=== PATIENT | female | born 1955 | race African-American/Black ===

== ENCOUNTER 2017-02-12 10:53 | Emergency (ER) | payer BC, OTHER ==
[~2017-02-12] VITALS: Ht 157.5 cm; Wt 72.6 kg
[~2017-02-12 10:53] MED LIST: ACETAMINOPHEN650 M2 GT; ALBUTEROL2.5 MG/3 M INH; AMOX TR-K CLV1 EAC2 ORAL; APRESOLINE50 MG ORAL; ASPIR 8181 MG ORAL; ATORVASTATIN CA20 MG ORAL; BACTRIM DS TAB1 EAC1 ORAL; CIPRO250 MG ORAL; CIPRO500 MG PO; CLINDAMYCIN HC300 MG ORAL; CRANBERRY450 M4 GT; DOXAZOSIN MESYLA8 MG ORAL; EPOGEN10000 UNIT SUBQ; FERROUS SULFAT325 MG ORAL; FLOMAX0.4 MG ORAL; GLUCAGON W/DILUE1 MG IM; GLUTOSE 1537.5 GM GT; HEPARIN SO5000 UNIT2 SUBQ; HUMALOG100 UNIT/4 SUBQ; KEFLEX500 M1 GT; LABETALOL HCL200 MG GT; LANTUS SOL100 UNIT/1 SUBQ; LASIX20 M1 ORAL; LEVAQUIN250 M1 GT; LEVEMIR100 UNIT/1 SUBQ; LISINOPRIL20 MG ORAL; MACROBID100 MG ORAL; MULTI VITAMIN1 EACH GT; NEPHRO-VITE RX1 EAC1 PO; NORCO 5-325 TA1 EACH GT; NORCO 5-325 TA1 EACH ORAL; NORMODYNE200 MG GT; NORVASC10 MG GT; NOVOLOG100 UNIT/3 SUBQ; PROCRIT20000 UNI2 SUBQ; RENVELA0.8 GM ORAL; TYLENOL650 MG/20. ORAL; UNOBMED; URECHOLINE25 MG ORAL; VANCOMYCIN250 MG/5 M GT; VITAMIN C500 M1 GT; ZINC SULFATE220 M1 GT; ZOFRAN4 MG GT; ZOSYN 3.373.375 GM/1 IVPB; ZYVOX600 MG ORAL; [UNRECOGNIZED DRUG - OTHER]; [UNRECOGNIZED DRUG - REMARK] MISC; [UNRECOGNIZED DRUG - SUPPLY]; mvi GT
[2017-02-12 11:10] VITALS: BP 11/72
--- NOTE | 2017-02-12 12:21 | Emergency Room Report ---
History of Present Illness General Chief Complaint: Dizziness Source: Patient Present Illness HPI [id number] BIBEMS for headache for 4 days. "All over head." Intermittent. No associated fever/chills, neck pain/stiffness, extremity weakness. Last had HD - 2 days ago. Due today Denies chest pain, SOB, abd pain, extremity swelling. Allergies: Coded Allergies: No Known Allergies (Unverified , 05/24/13) Patient History Past Medical History: renal disease Past Surgical History: other - HD access site Pertinent Family History: none Social History: Denies: smoking, alcohol use, drug use Now: No Immunizations: UTD Reviewed Nursing Documentation: PMH: Agreed, PSxH: Agreed Nursing Documentation-PMH Hx Cardiac Problems: Yes Hx Hypertension: Yes Hx Diabetes: Yes Hx Cancer: No Hx Gastrointestinal Problems: No Hx Dialysis: Yes - av graft left arm-(T--)LAST DIALYSIS - Hx Neurological Problems: Yes Hx Cerebrovascular Accident: Yes - 2011- Hx Weakness: Yes Review of Systems All Other Systems: negative except mentioned in HPI Physical Exam Vital Signs Date Time Temp Pulse Resp B/P (MAP) Pulse Ox O2 Delivery O2 Flow Rate FiO2 02/12/17 10:59 96.6 73 14 120/69 98 Room Air Sp02 EP Interpretation: reviewed General Appearance: normal inspection, well appearing, no apparent distress, alert, GCS 15, non-toxic Head: normocephalic, atraumatic Eyes: bilateral eye PERRL, bilateral eye EOMI ENT: normal ENT inspection, hearing grossly normal, normal voice Neck: normal inspection, full range of motion, supple, no bony tend Respiratory: normal inspection, lungs clear, normal breath sounds, no respiratory distress, no retraction, no wheezing Cardiovascular #1: regular rate, rhythm, no edema Gastrointestinal: normal inspection, normal bowel sounds, non tender, soft, no guarding, no hernia Genitourinary: no CVA tenderness Musculoskeletal: normal inspection, back normal, normal range of motion, Nori' s Sign negative Neurologic: normal inspection, alert, oriented x3, responsive, frame opener III-XII nml as tested, motor strength/tone normal, speech normal Psychiatric: normal inspection, judgement/insight normal, mood/affect normal Skin: normal inspection, normal color, no rash Medical Decision Making Diagnostic Impression: Primary Impression: Headache Qualified Codes: G44.209 - Tension-type headache, unspecified, not intractable Additional Impressions: Hyperkalemia CKD (chronic kidney disease) Qualified Codes: N18.6 - End stage renal disease; Z99.2 - Dependence on renal dialysis ER Course Headache, resolved at time of MD evaluation VSS. Afebrile. No focal neuro deficits Doubt SAH, meningitis given duration of symptoms, self-resolution HyperK - Missed HD today - ?peaked TW on ECG - Tx with IV calcium, albuterol in ED - Spoke with PMD DR Alarcon and patient's HD center, [facility], who agree on sending patient for HD there given now asymptomatic. - Patient's O2 sat 100%, no acute respiratory distress, chest pain. D/w patient importance of going to dialysis today vs staying in hospital for dialysis, further evaluation, and potentially be at risk for nosocomial acquired infection, etc. Agrees for transfer to HD center Will return to ED for worsening symptoms EKG Diagnostic Results Rate: normal Rhythm: NSR ST Segments: other - Peaked Twaves in V2/3 ASA given to the pt in ED: No Rhythm Strip Diag. Results EP Interpretation: yes Rate: 67 Rhythm: NSR, no PVC's, no ectopy Chest X-Ray Diagnostic Results Chest X-Ray Diagnostic Results : Chest X-Ray Ordered: Yes # of Views/Limited/Complete: 1 View Indication: Other - Dizziness EP Interpretation: Yes Interpretation: no consolidation, no effusion, no pneumothorax, other - Cardiomegaly Interpreting ER Provider: Dr Vannesa Chávez MD Last Vital Signs Date Time Temp Pulse Resp B/P (MAP) Pulse Ox O2 Delivery O2 Flow Rate FiO2 02/12/17 10:59 96.6 73 14 120/69 98 Room Air Status: improved Disposition: HOME, SELF-CARE VANNESA CHÁVEZ M.D. Feb 12, 2017 12:21
[2017-02-12 12:59] LABS: EOSINOPHILS % (AUTO) 2.3 % (0.0-3.0); LYMPHOCYTES % (AUTO) 23.4 % (20.0-45.0); MEAN CORPUSCULAR HGB CONC 33.2 G/DL (32.0-36.0); MEAN CORPUSCULAR VOLUME 94 FL (80-99); MEAN PLATELET VOLUME 7.9 FL (6.5-10.1); MONOCYTES % (AUTO) 5.9 % (1.0-10.0); NEUTROPHILS % (AUTO) 67.5 % (45.0-75.0); PLATELET COUNT 150 K/UL (150-450); RED BLOOD COUNT 4.21 M/UL (4.20-5.40)
[2017-02-12 13:10] LABS: TROPONIN I < 0.30 ng/mL (<=0.30)
[2017-02-12 13:13] LABS: ALBUMIN/GLOBULIN RATIO 1.5 (1.0-2.7); CREATININE 8.3 mg/dL (0.5-0.9); GLOMERULAR FILTRATION RATE 5.9 mL/min (>60); TOTAL PROTEIN 7.3 g/dL (6.6-8.7)
[2017-02-12 13:36] LABS: POTASSIUM 7.8 mEQ/L (3.4-4.9)
[2017-02-12] MEDS ORDERED: Calcium Gluconate 1gm/10ml vial IVP ONE (14:00)
[2017-02-12] MEDS ORDERED: Albuterol ud Inhalation HHN ONE (14:00)
[2017-02-12 15:02] VITALS: BP 117/74
--- NOTE | 2017-02-13 11:08 | Diagnostic Imaging Report ---
Indication: Dyspnea Comparison: 09/24/15 A single view chest radiograph was obtained. Findings: Cardiomediastinal appearance is within normal limits for age. Pulmonary vascularity is appropriate. The diaphragmatic contour is smooth and costophrenic angles are sharp. No pleural effusions are identified. The bones are unremarkable. Impression: No acute findings
--- NOTE | 2017-02-14 19:45 | Cardiology Report ---
APPROVED REPORT EKG Measurement Heart [id number] Normal sinus rhythm Low voltage QRS Borderline ECG
== END 2017-02-12 14:50 | disposition home or self-care (01) ==
LOC: EMR 11:40
DX: R51 Headache (principal); E87.5 Hyperkalemia; I12.0 Hypertensive chronic kidney disease with stage 5 chronic kidney disease or end stage renal disease; N18.6 End stage renal disease; Z99.2 Dependence on renal dialysis; E11.9 Type 2 diabetes mellitus without complications; Z86.73 Personal history of transient ischemic attack (TIA), and cerebral infarction without residual deficits
CPT/HCPCS: 36415; 71010; 80053; 82550; 82553; 83880; 84484; 85025; 93005; 94640; 96374; 96375; 99284; J0610; J1815

== ENCOUNTER 2020-04-13 19:46 | Inpatient (IN) | payer MEDICARE, MEDICAID ==
[~2020-04-13] VITALS: Ht 165.1 cm; Wt 76.0 kg
[2020-04-13 19:50] VITALS: BP 126/65
--- NOTE | 2020-04-13 19:57 | Emergency Room Report ---
History of Present Illness General Source: Patient, EMS Present Illness HPI The patient presents with complaint of left flank and lower back pain. She states she has had pain like this in the past when she is passing a kidney stone. She is a dialysis patient that missed her dialysis on Tuesday because her stomach was not feeling well. She states that she was having some loose stools at that time. She does still produce urine and denies dysuria or hematuria. She rarely produces urine. She has had no fevers or chills. Patient is also diabetic. She rates the pain 8/10 and burning and aching and constant. Not positional. Not radiating. Patient denies exposure to Covid positive contacts. No sore throat, chest pain, palpitations, nausea, vomiting, abdominal pain, shortness of breath, joint pain, rashes, depression, anxiety, visual changes, dizziness, headache. Allergies: Coded Allergies: No Known Allergies (Unverified , 05/24/13) Patient History Past Medical History: see triage record Past Surgical History: hysterectomy, other - Dialysis fistula, carpal tunnel Social History: Denies: smoking, alcohol use, drug use Social History Narrative Lives with her son and his family Reviewed Nursing Documentation: PMH: Agreed; PSxH: Agreed Nursing Documentation-PMH Hx Cardiac Problems: Yes Hx Hypertension: Yes Hx Diabetes: Yes Hx Cancer: No Hx Gastrointestinal Problems: No Hx Dialysis: Yes - av graft left arm-(T-TH-S)LAST DIALYSIS - Hx Neurological Problems: Yes Hx Cerebrovascular Accident: Yes - 2011- Hx Weakness: Yes Review of Systems All Other Systems: negative except mentioned in HPI Physical Exam Vital Signs Date Time Temp Pulse Resp B/P (MAP) Pulse Ox O2 Delivery O2 Flow Rate FiO2 04/13/20 19:50 98.6 79 12 126/65 100 Room Air Sp02 EP Interpretation: reviewed, normal General Appearance: alert, GCS 15, non-toxic, mild distress, Chronically Ill Head: normocephalic Eyes: bilateral eye normal inspection, bilateral eye PERRL, bilateral eye EOMI ENT: moist mucus membranes Neck: supple Respiratory: lungs clear, normal breath sounds Cardiovascular #1: regular rate, rhythm Cardiovascular #2: 2+ radial (R) Gastrointestinal: normal inspection, normal bowel sounds, non tender, no mass, non-distended Genitourinary: no CVA tenderness Musculoskeletal: normal range of motion, tender - Reported Neurologic: alert, oriented x3, grossly normal Psychiatric: depressed affect Skin: no rash, warm/dry Medical Decision Making Diagnostic Impression: Primary Impression: Flank pain Additional Impressions: Missed dialysis ESRD (end stage renal disease) on dialysis Anemia Qualified Codes: N18.6 - End stage renal disease; D63.1 - Anemia in chronic kidney disease; Z99.2 - Dependence on renal dialysis COVID-19 ruled out by laboratory testing ER Course Patient presents with low back pain with history of kidney stones and dialysis having this dialysis. Differential includes pyelonephritis, renal stone, gastroenteritis, aortic aneurysm amongst others. She missed dialysis and therefore concern about electrolyte abnormality. Evaluation with EKG, chest x- ray, CT of the abdomen and pelvis and labs. Patient treated with Reglan, Benadryl and morphine. EKG no injury. Chest x-ray some pulmonary hypertension. CT of the abdomen with nonobstructing stones (see results below. In addition pain is not on right upper upper quadrant therefore biliary duct findings not related to this presentation.). Labs with chronic renal failure and a normal white count. Urine not produced. Patient minimally improved with pain medication. Analgesia repeated. Due to the unknown etiology of flank pain patient is admitted for further evaluation and observation. In addition consideration for dialysis as she missed this on Tuesday. Complicated patient with multiple comorbidities. Laboratory Tests Test 04/13/20 19:58 04/13/20 20:14 POC Whole Blood Glucose 217 MG/DL (74-106) H White Blood Count 6.8 K/UL (4.8-10.8) Red Blood Count 2.85 M/UL (4.20-5.40) L Hemoglobin 8.3 G/DL (12.0-16.0) L Hematocrit 26.0 % (37.0-47.0) L Mean Corpuscular Volume 91 FL (80-99) Mean Corpuscular Hemoglobin 29.2 PG (27.0-31.0) Mean Corpuscular Hemoglobin Concent 32.1 G/DL (32.0-36.0) Red Cell Distribution Width 14.3 % (11.6-14.8) Platelet Count 193 K/UL (150-450) Mean Platelet Volume 6.5 FL (6.5-10.1) Neutrophils (%) (Auto) 74.2 % (45.0-75.0) Lymphocytes (%) (Auto) 13.8 % (20.0-45.0) L Monocytes (%) (Auto) 7.5 % (1.0-10.0) Eosinophils (%) (Auto) 3.3 % (0.0-3.0) H Basophils (%) (Auto) 1.1 % (0.0-2.0) Prothrombin Time 10.7 SEC (9.30-11.50) Prothrombin Time INR 1.0 (0.9-1.1) Activated Partial Thromboplast Time 24 SEC (23-33) Sodium Level 142 MMOL/L (136-145) Potassium Level 3.9 MMOL/L (3.5-5.1) Chloride Level 98 MMOL/L (98-107) Carbon Dioxide Level 33 MMOL/L (21-32) H Anion Gap 11 mmol/L (5-15) Blood Urea Nitrogen 70 mg/dL (7-18) H Creatinine 11.8 MG/DL (0.55-1.30) H Estimated Glomerular Filtration Rate 3.9 mL/min (>60) Glucose Level 237 MG/DL (74-106) H Calcium Level 7.9 MG/DL (8.5-10.1) L Total Bilirubin 0.3 MG/DL (0.2-1.0) Aspartate Amino Transferase (AST) 12 U/L (15-37) L Alanine Aminotransferase (ALT) 8 U/L (12-78) L Alkaline Phosphatase 125 U/L (46-116) H Troponin I 0.005 ng/mL (0.000-0.056) Total Protein 7.0 G/DL (6.4-8.2) Albumin 3.5 G/DL (3.4-5.0) Globulin 3.5 g/dL Albumin/Globulin Ratio 1.0 (1.0-2.7) Lipase 271 U/L (73-393) Microbiology Date/Time Source Procedure Growth Status 04/13/20 22:30 Nasopharynx SARS-CoV-2 RdRp Gene Assay - Final Complete EKG Diagnostic Results Troponin ordered: Yes Rate: normal Rhythm: NSR ST Segments: no acute changes - Low voltage Rhythm Strip Diag. Results EP Interpretation: yes Rhythm: NSR, no PVC's, no ectopy Chest X-Ray Diagnostic Results Chest X-Ray Diagnostic Results : Chest X-Ray Ordered: Yes # of Views/Limited/Complete: 1 View Indication: Other EP Interpretation: Yes Interpretation: no effusion, no pneumothorax, other - increased coronel Impression: Other Electronically Signed by: Electronically signed by Graeme Johnson MD CT/MRI/US Diagnostic Results CT/MRI/US Diagnostic Results : Imaging Test Ordered: Abdomen and pelvis Impression 1. Bladder wall thickening out of proportion to level of distention. Findings are suspicious for cystitis. Recommend correlation with urinalysis. 2. Nonspecific dilatation of the distal main pancreatic duct which also contains a small amount of air. Query recent ERCP. In the absence of such history, an underlying obstructing lesion seen at the level of the ampulla should be excluded. Last Vital Signs Date Time Temp Pulse Resp B/P (MAP) Pulse Ox O2 Delivery O2 Flow Rate FiO2 04/14/20 00:00 97.5 74 18 113/58 (76) 98 04/13/20 23:10 Room Air Status: improved Disposition: ADMITTED INPATIENT Condition: Serious Graeme Johnson MD Apr 13, 2020 19:57
[2020-04-13] MEDS ORDERED: DiphenhydrAMINE 50mg/ml Inj IVP ONE (20:00)
[2020-04-13] MEDS ORDERED: Morphine Sulfate 2mg/ml Inj(IV/IM USE ONLY) IVP ONE (20:00)
[2020-04-13] MEDS ORDERED: Metoclopramide 10mg/2ml Inj IVP ONE (20:00)
[2020-04-13 20:53] LABS: BASOPHILS % (AUTO) 1.1 % (0.0-2.0); EOSINOPHILS % (AUTO) 3.3 % (0.0-3.0); HEMOGLOBIN 8.3 G/DL (12.0-16.0); LYMPHOCYTES % (AUTO) 13.8 % (20.0-45.0); MEAN CORPUSCULAR VOLUME 91 FL (80-99); MONOCYTES % (AUTO) 7.5 % (1.0-10.0); NEUTROPHILS % (AUTO) 74.2 % (45.0-75.0); PLATELET COUNT 193 K/UL (150-450); RED BLOOD COUNT 2.85 M/UL (4.20-5.40); RED CELL DISTRIBUTION WIDTH 14.3 % (11.6-14.8); WHITE BLOOD COUNT 6.8 K/UL (4.8-10.8)
--- NOTE | 2020-04-13 21:07 | Diagnostic Imaging Report ---
EXAM: CT Abdomen and Pelvis Without Intravenous Contrast CLINICAL HISTORY: ABD PAIN TECHNIQUE: Axial computed tomography images of the abdomen and pelvis without intravenous contrast. CTDI is 6.1 mGy and DLP is 308.7 mGy-cm. One or more of the following dose reduction techniques were used: automated exposure control, adjustment of the mA and/or kV according to patient size, use of iterative reconstruction technique. COMPARISON: None FINDINGS: Lung bases: Unremarkable. No mass. No consolidation. ABDOMEN: Liver: Unremarkable. Gallbladder and bile ducts: There is a tiny gallstone. There is no gallbladder wall thickening or pericholecystic fat stranding. No ductal dilation. Pancreas: There is dilatation of the distal main pancreatic duct. A small amount of air is also seen within the duct. Spleen: Unremarkable. No splenomegaly. Adrenals: Unremarkable. No mass. Kidneys and ureters: The kidneys are atrophic. There are small bilateral nonobstructive renal stones. There is no evidence of hydronephrosis. No ureteral stones are seen. Stomach and bowel: There is rectal wall thickening which may reflect incomplete distention. There is no evidence of small or large bowel obstruction. The antimesenteric portion of the transverse colon protrudes through a ventral hernia defect. There is a normal appendix. PELVIS: Appendix: See above. Bladder: The bladder is thick walled. No stones. Reproductive: Unremarkable as visualized. ABDOMEN and PELVIS: Intraperitoneal space: There is no actual gas or fluid. Bones/joints: There is no acute fracture or dislocation. Multilevel degenerative changes are seen within the spine. Soft tissues: See above. Vasculature: Moderate atherosclerotic calcifications are present within the aortoiliac vessels. No abdominal aortic aneurysm. Lymph nodes: Unremarkable. No enlarged lymph nodes. IMPRESSION: 1. Bladder wall thickening out of proportion to level of distention. Findings are suspicious for cystitis. Recommend correlation with urinalysis. 2. Nonspecific dilatation of the distal main pancreatic duct which also contains a small amount of air. Query recent ERCP. In the absence of such history, an underlying obstructing lesion seen at the level of the ampulla should be excluded.
[2020-04-13 21:20] LABS: CALCIUM 7.9 MG/DL (8.5-10.1); CREATININE 11.8 MG/DL (0.55-1.30); POTASSIUM 3.9 MMOL/L (3.5-5.1)
--- NOTE | 2020-04-13 21:22 | Diagnostic Imaging Report ---
EXAM: XR Chest, 1 View CLINICAL HISTORY: ABD PAIN TECHNIQUE: Frontal view of the chest. COMPARISON: None FINDINGS: Lungs: There is mild pulmonary vascular congestion. Atelectatic changes are seen at the left lung base. Pleural space: Unremarkable. No pneumothorax. Heart: The heart size at the upper limits of normal. Mediastinum: Unremarkable. Bones/joints: Unremarkable. IMPRESSION: Cardiomegaly and mild pulmonary vascular congestion.
[2020-04-13 21:25] LABS: ALBUMIN 3.5 G/DL (3.4-5.0); BILIRUBIN,TOTAL 0.3 MG/DL (0.2-1.0)
[2020-04-13] MEDS ORDERED: HYDROmorphone 1mg/ml Carpuject IVP ONE (22:30)
[2020-04-13] MEDS ORDERED: DiphenhydrAMINE 50mg/ml Inj IVP PRN (23:45)
[2020-04-13] MEDS ORDERED: Metoclopramide 10mg/2ml Inj IVP PRN (23:45)
[2020-04-13] MEDS ORDERED: HYDROcodone/Acetamin 5/325 tab ORAL PRN (23:45)
[2020-04-13] MEDS ORDERED: Morphine Sulfate 2mg/ml Inj(IV/IM USE ONLY) IVP SCH (23:45)
[2020-04-13] MEDS ORDERED: HYDROmorphone 1mg/ml Carpuject IVP PRN (23:45)
[2020-04-14] VITALS: BP 113/58
[2020-04-14] MEDS ORDERED: Heparin 5000 units/ml inj SUBQ SCH (00:30)
[2020-04-14 04:00] VITALS: BP 99/45
[2020-04-14] MEDS: NovoLOG Insulin Flexpen SUBQ SCH ×4 (06:13→21:09)
[2020-04-14 08:00] VITALS: BP 104/46
--- NOTE | 2020-04-14 08:45 | Consultation ---
History of Present Illness General Date patient seen: Apr 14, 2020 Chief Complaint: Present Illness Allergies: Coded Allergies: No Known Allergies (Unverified , 05/24/13) Medication History Scheduled Aspirin* (Aspir 81*), 81 MG ORAL DAILY, (Reported) Atorvastatin Calcium* (Atorvastatin Calcium*), 20 MG ORAL BEDTIME, (Reported) Insulin Detemir (Levemir), 0 SUBQ BEDTIME, (Reported) Labetalol HCl (Labetalol HCl), 400 MG GT Q12HR Lisinopril (Lisinopril*), 20 MG ORAL BID Sevelamer Carbonate* (Renvela*), 800 MG ORAL THREE TIMES A DAY [mvi], 5 ML GT DAILY, (Reported) Scheduled PRN Hydrocodone Bit/Acetaminophen 5-325* ([place] 5-325*), 1 TAB ORAL Q6H PRN for For Pain Miscellaneous Medications Insulin Aspart* (Novolog*), 0 SUBQ, (Reported) Patient History Healthcare decision maker Resuscitation status Advanced Directive on File Physical Exam Last 24 Hour Vital Signs Date Time Temp Pulse Resp B/P (MAP) Pulse Ox O2 Delivery O2 Flow Rate FiO2 04/14/20 04:00 97.2 72 18 99/45 (63) 95 04/14/20 00:18 Room Air 04/14/20 00:00 97.5 74 18 113/58 (76) 98 04/13/20 23:10 98.7 75 12 111/56 100 Room Air 04/13/20 23:00 79 12 Room Air 04/13/20 22:54 98.7 04/13/20 21:08 98.7 04/13/20 19:50 98.6 79 12 126/65 100 Room Air Intake and Output 04/13/20 04/14/20 19:00 07:00 Intake Total 0 ml Output Total 0 ml Balance 0 ml Intake Oral 0 ml Output Urine Total 0 ml Laboratory Tests Test 04/13/20 19:58 04/13/20 20:14 POC Whole Blood Glucose 217 MG/DL (74-106) H White Blood Count 6.8 K/UL (4.8-10.8) Red Blood Count 2.85 M/UL (4.20-5.40) L Hemoglobin 8.3 G/DL (12.0-16.0) L Hematocrit 26.0 % (37.0-47.0) L Mean Corpuscular Volume 91 FL (80-99) Mean Corpuscular Hemoglobin 29.2 PG (27.0-31.0) Mean Corpuscular Hemoglobin Concent 32.1 G/DL (32.0-36.0) Red Cell Distribution Width 14.3 % (11.6-14.8) Platelet Count 193 K/UL (150-450) Mean Platelet Volume 6.5 FL (6.5-10.1) Neutrophils (%) (Auto) 74.2 % (45.0-75.0) Lymphocytes (%) (Auto) 13.8 % (20.0-45.0) L Monocytes (%) (Auto) 7.5 % (1.0-10.0) Eosinophils (%) (Auto) 3.3 % (0.0-3.0) H Basophils (%) (Auto) 1.1 % (0.0-2.0) Prothrombin Time 10.7 SEC (9.30-11.50) Prothromb Time International Ratio 1.0 (0.9-1.1) Activated Partial Thromboplast Time 24 SEC (23-33) Sodium Level 142 MMOL/L (136-145) Potassium Level 3.9 MMOL/L (3.5-5.1) Chloride Level 98 MMOL/L (98-107) Carbon Dioxide Level 33 MMOL/L (21-32) H Anion Gap 11 mmol/L (5-15) Blood Urea Nitrogen 70 mg/dL (7-18) H Creatinine 11.8 MG/DL (0.55-1.30) H Estimat Glomerular Filtration Rate 3.9 mL/min (>60) Glucose Level 237 MG/DL (74-106) H Calcium Level 7.9 MG/DL (8.5-10.1) L Total Bilirubin 0.3 MG/DL (0.2-1.0) Aspartate Amino Transf (AST/SGOT) 12 U/L (15-37) L Alanine Aminotransferase (ALT/SGPT) 8 U/L (12-78) L Alkaline Phosphatase 125 U/L (46-116) H Troponin I 0.005 ng/mL (0.000-0.056) Total Protein 7.0 G/DL (6.4-8.2) Albumin 3.5 G/DL (3.4-5.0) Globulin 3.5 g/dL Albumin/Globulin Ratio 1.0 (1.0-2.7) Lipase 271 U/L (73-393) Microbiology Date/Time Source Procedure Growth Status 04/13/20 22:30 Nasopharynx SARS-CoV-2 RdRp Gene Assay - Final Complete Height (Feet): 5 Height (Inches): 2.00 Weight (Pounds): 156 Medications Current Medications Medications (Trade) Dose Ordered Sig/Gini Route PRN Reason Start Time Stop Time Status Last Admin Dose Admin Acetaminophen/ Hydrocodone Bitart ([place] 5/325) 1 tab Q6H PRN ORAL For Pain 04/13/20 23:45 04/20/20 23:44 Aspirin (Ecotrin) 81 mg DAILY ORAL 04/14/20 09:00 05/29/20 08:59 Atorvastatin Calcium (Lipitor) 20 mg BEDTIME ORAL 04/14/20 21:00 07/13/20 20:59 Dextrose (Dextrose 50%) 25 ml Q30M PRN IV Hypoglycemia 04/13/20 23:45 07/12/20 23:44 Dextrose (Dextrose 50%) 50 ml Q30M PRN IV Hypoglycemia 04/13/20 23:45 07/12/20 23:44 Diphenhydramine HCl (Benadryl) 25 mg Q6H PRN IVP Itching 04/13/20 23:45 05/13/20 23:44 Heparin Sodium (Porcine) (Heparin 5000 units/ml) 5,000 units EVERY 12 HOURS SUBQ 04/14/20 09:00 05/29/20 00:29 Hydromorphone HCl (Dilaudid) 1 mg Q8H PRN IVP Severe Pain (Pain Scale 7-10) 04/13/20 23:45 04/20/20 23:44 Insulin Aspart (NovoLOG) BEFORE MEALS AND HS SUBQ 04/14/20 06:30 07/13/20 06:29 Levetiracetam (Keppra) 500 mg Q12HR ORAL 04/14/20 09:00 05/14/20 00:29 Lisinopril (PriniviL) 20 mg BID ORAL 04/14/20 09:00 05/14/20 08:59 Metoclopramide HCl (Reglan) 10 mg Q6H PRN IVP Nausea & Vomiting 04/13/20 23:45 05/13/20 23:44 Ondansetron HCl (Zofran) 4 mg Q6H PRN IVP Nausea & Vomiting refractory 04/13/20 23:45 05/13/20 23:44 Pantoprazole (Protonix) 40 mg EVERY 12 HOURS ORAL 04/14/20 09:00 05/14/20 00:29 Sevelamer Carbonate (Renvela) 800 mg THREE TIMES A DAY ORAL 04/14/20 09:00 07/13/20 08:59 Assessment/Plan Assessment/Plan: (1) Flank pain (2) ESRD on hemodialysis seen dictated Evans Gordon Apr 14, 2020 08:45
[2020-04-14] MEDS: Lisinopril 20mg tab ORAL SCH ×2 (09:00→09:04)
[2020-04-14] MEDS: Aspirin EC 81mg tab ORAL SCH (09:03)
[2020-04-14] MEDS: Renvela 800mg Pkt ORAL SCH ×3 (09:03→17:36)
[2020-04-14] MEDS: Heparin 5000 units/ml inj SUBQ SCH ×2 (09:06→20:43)
--- NOTE | 2020-04-14 09:31 | History & Physical ---
History and Physical History & Physicial riGeneral Source: Patient, EMS Present Illness HPI The patient presents with complaint of left flank and lower back pain. She states she has had pain like this in the past when she is passing a kidney stone. She is a dialysis patient that missed her dialysis on Tuesday because her stomach was not feeling well. She states that she was having some loose stools at that time. She does still produce urine and denies dysuria or hematuria. She has had no fevers or chills. Patient is also diabetic. Allergies: Coded Allergies: No Known Allergies (Unverified , 05/24/13) Patient History Past Medical History: see triage record Social History: Denies: smoking, alcohol use, drug use Social History Narrative Lives with her son and his family Reviewed Nursing Documentation: PMH: Agreed; PSxH: Agreed Nursing Documentation-PMH Hx Cardiac Problems: Yes Hx Hypertension: Yes Hx Diabetes: Yes Hx Cancer: No Hx Gastrointestinal Problems: No Hx Dialysis: Yes - av graft left arm-(T-TH-S)LAST DIALYSIS - Hx Neurological Problems: Yes Hx Cerebrovascular Accident: Yes - 2011- Hx Weakness: Yes Exam: AT/NC, chest: clear, Heart: Regular, ABD: soft, MS: no asymmetric deficeit, Neuro: awake alert, Psych: normal Med: reviewed and reconciled Labs: dated Apr 13 reviewed Medical Decision Making Diagnostic Impression: Primary Impression: Flank pain Additional Impressions: Missed dialysis ESRD (end stage renal disease) on dialysis Anemia Qualified Codes: N18.6 - End stage renal disease; D63.1 - Anemia in chronic kidney disease; Z99.2 - Dependence on renal dialysis COVID-19 ruled out by laboratory testing DM Hyperlipidemia Abn imaging finding in Abd CT Nephrology pain mgt and ID are consulted comment: time of this dictation does not reflect actual time of the encounter Cristian White MD Apr 14, 2020 09:31
--- NOTE | 2020-04-14 09:32 | General Progress Note ---
Subjective Allergies: Coded Allergies: No Known Allergies (Unverified , 05/24/13) Objective Last 24 Hour Vital Signs Date Time Temp Pulse Resp B/P (MAP) Pulse Ox O2 Delivery O2 Flow Rate FiO2 04/14/20 09:00 104/46 04/14/20 08:00 97.9 64 18 104/46 (65) 97 04/14/20 04:00 97.2 72 18 99/45 (63) 95 04/14/20 00:18 Room Air 04/14/20 00:00 97.5 74 18 113/58 (76) 98 04/13/20 23:10 98.7 75 12 111/56 100 Room Air 04/13/20 23:00 79 12 Room Air 04/13/20 22:54 98.7 04/13/20 21:08 98.7 04/13/20 19:50 98.6 79 12 126/65 100 Room Air Intake and Output 04/13/20 04/14/20 19:00 07:00 Intake Total 0 ml Output Total 0 ml Balance 0 ml Intake Oral 0 ml Output Urine Total 0 ml Laboratory Tests 04/13/20 19:58: POC Whole Blood Glucose 217H 04/13/20 20:14: White Blood Count 6.8, Red Blood Count 2.85L, Hemoglobin 8.3L, Hematocrit 26.0L, Mean Corpuscular Volume 91, Mean Corpuscular Hemoglobin 29.2, Mean Corpuscular Hemoglobin Concent 32.1, Red Cell Distribution Width 14.3, Platelet Count 193, Mean Platelet Volume 6.5, Neutrophils (%) (Auto) 74.2, Lymphocytes (%) (Auto) 13.8L, Monocytes (%) (Auto) 7.5, Eosinophils (%) (Auto) 3.3H, Basophils (%) (Auto) 1.1, Prothrombin Time 10.7, Prothromb Time International Ratio 1.0, Activated Partial Thromboplast Time 24, Sodium Level 142, Potassium Level 3.9, Chloride Level 98, Carbon Dioxide Level 33H, Anion Gap 11, Blood Urea Nitrogen 70H, Creatinine 11.8H, Estimat Glomerular Filtration Rate 3.9, Glucose Level 237H, Calcium Level 7.9L, Total Bilirubin 0.3, Aspartate Amino Transf (AST/SGOT) 12L, Alanine Aminotransferase (ALT/SGPT) 8L, Alkaline Phosphatase 125H, Troponin I 0.005, Total Protein 7.0, Albumin 3.5, Globulin 3.5, Albumin/Globulin Ratio 1.0, Lipase 271 Height (Feet): 5 Height (Inches): 2.00 Weight (Pounds): 156 Assessment/Plan Assessment/Plan: S: I am ok O: seems comfortable Exam: AT/NC, chest: clear, Heart: Regular, ABD: soft, MS: no asymmetric deficeit, Neuro: awake alert, Psych: normal Med: reviewed and reconciled Labs: dated Apr 14 reviewed Medical Decision Making Diagnostic Impression: Primary Impression: Flank pain Additional Impressions: Missed dialysis ESRD (end stage renal disease) on dialysis Anemia Qualified Codes: N18.6 - End stage renal disease; D63.1 - Anemia in chronic kidney disease; Z99.2 - Dependence on renal dialysis COVID-19 ruled out by laboratory testing DM Hyperlipidemia Abn imaging finding in Abd CT Plan: GI consulted NPO for now hold LA-insulin Cristian White MD Apr 14, 2020 09:32
--- NOTE | 2020-04-14 10:45 | Consultation ---
DATE OF CONSULTATION: 04/14/2020 CHIEF COMPLAINT: Abdominal pain. HISTORY OF PRESENT ILLNESS: This is a very pleasant 64-year-old patient with past medical history of end-stage renal disease on hemodialysis came to the hospital complaining of epigastric pain and left flank pain. According to her, she had history of kidney stones and she felt like the other one started to have kidney stones. She also complained of some abdominal pain and loose stools. According to her, no blood in the stool. According to her, she had a colonoscopy done about a year ago and she was told everything was normal. No prior history of endoscopy. PAST MEDICAL HISTORY: 1. End-stage renal disease on hemodialysis. 2. Anemia. 3. Kidney stones. 4. Diabetes. 5. Hypertension. 6. CVA. ALLERGIES: No known drug allergies. MEDICATIONS: Please see medication reconciliation list. PAST SURGICAL HISTORY: Hysterectomy and AV shunt placement for dialysis. FAMILY HISTORY: Noncontributory. SOCIAL HISTORY: The patient denies any tobacco, alcohol, or drug abuse. REVIEW OF SYSTEMS: A 10-point review of systems was performed and pertinent positives in HPI. PHYSICAL EXAMINATION: VITAL SIGNS: Temperature 97.9, pulse 64, respirations 18, blood pressure is 104/46. HEENT: Normocephalic and atraumatic. Sclerae anicteric. NECK: Supple. No obvious lymphadenopathy. CARDIOVASCULAR: Regular rate and rhythm. Plus S1 and S2. LUNGS: Decreased breath sounds bilaterally based on the supine exam. ABDOMEN: Soft, nontender. No rebound. No guarding. No peritoneal sign. EXTREMITIES: No cyanosis, no clubbing, no edema. LABORATORY AND DIAGNOSTIC DATA: White count is 6.8, hemoglobin 8.3, hematocrit 26, platelet count is 193. Imaging studies, CT of the abdomen and pelvis, which showed air in the pancreatic duct, questionable ampullary mass versus recent ERCP. ASSESSMENT: This is a 64-year-old female with abdominal pain and anemia, abnormal CT findings. PLAN: The patient to be on a renal diet for today, PPI for complaint of epigastric pain. Esophagogastroduodenoscopy tomorrow for evaluation of epigastric pain, rule out gastric ulcer. In terms of pancreatic duct dilatation, we will plan to order an MRCP. Ordered tumor markers for tomorrow including CA 19-9, amylase and lipase, and liver function tests for tomorrow. I want to thank, Dr. White, for this kind referral. Petr Chapa M.D. DR: Andry JOB#: [id number] CC: Cristian White M.D.; Fax#: [phone]
--- NOTE | 2020-04-14 11:48 | Consultation ---
Consult Note Consult Note I am asked to evaluate the patient at the request of for dialysis management The patient presents with complaint of left flank and lower back pain. She states she has had pain like this in the past when she is passing a kidney stone. She is a dialysis patient that missed her dialysis on Tuesday because her stomach was not feeling well. She states that she was having some loose stools at that time. She does still produce urine and denies dysuria or hematuria. She has had no fevers or chills. Patient is also diabetic. Allergies: No Known Allergies (Unverified , 05/24/13) Past Medical History: see triage record Social History: Denies: smoking, alcohol use, drug use Social History Narrative Lives with her son and his family Reviewed Nursing Documentation: PMH: Agreed; PSxH: Agreed Hx Cardiac Problems: Yes Hx Hypertension: Yes Hx Diabetes: Yes Hx Dialysis: Yes - av graft left arm-(T-TH-S)LAST DIALYSIS - Hx Neurological Problems: Yes Hx Cerebrovascular Accident: Yes - 2011- Hx Weakness: Yes VITAL SIGNS: Temperature 97.9, pulse 64, respirations 18, blood pressure is 104/46. HEENT: Normocephalic and atraumatic. Sclerae anicteric. NECK: Supple. No obvious lymphadenopathy. CARDIOVASCULAR: Regular rate and rhythm. Plus S1 and S2. LUNGS: Decreased breath sounds bilaterally based on the supine exam. ABDOMEN: Soft, nontender. No rebound. No guarding. No peritoneal sign. EXTREMITIES: No cyanosis, no clubbing, no edema. LABORATORY AND DIAGNOSTIC DATA: White count is 6.8, hemoglobin 8.3, hematocrit 26, platelet count is 193. Imaging studies, CT of the abdomen and pelvis, which showed air in the pancreatic duct, questionable ampullary mass versus recent ERCP. . Assessment/Plan End-stage renal disease, on hemodialysis Tuesday. Missed her last dialysis session. History of anemia of chronic kidney disease History of hydronephrosis Admitted with flank pain Covid 19 ruled out by lab testing first time History of CVA Suggestion: Check kidney ultrasound for hydronephrosis and bladder distention Urine analysis and culture Hemodialysis ordered for today Continue to monitor renal parameters Keep the blood pressure blood sugar in check Adjust blood pressure medication dose Continue per ID advice Supa Gomes MD Apr 14, 2020 11:48
[2020-04-14 12:00] VITALS: BP 100/48
[2020-04-14 12:31] LABS: EOSINOPHILS % (AUTO) 4.3 % (0.0-3.0); HEMATOCRIT 26.5 % (37.0-47.0); HEMOGLOBIN 8.7 G/DL (12.0-16.0); MEAN CORPUSCULAR VOLUME 90 FL (80-99); MONOCYTES % (AUTO) 7.6 % (1.0-10.0); PLATELET COUNT 179 K/UL (150-450); RED BLOOD COUNT 2.96 M/UL (4.20-5.40); RED CELL DISTRIBUTION WIDTH 12.9 % (11.6-14.8); WHITE BLOOD COUNT 6.8 K/UL (4.8-10.8)
--- NOTE | 2020-04-14 12:43 | Consultation ---
History of Present Illness General Date patient seen: Apr 14, 2020 Chief Complaint: Lower Back Pain or Injury Present Illness HPI 64 y/o F with hx of Dm2, AOCKD, HLD, Sp hysterectomy, nephrolithiasis, CVA 2011, HTN, ESRD on HD via L AVG presented to ED on 04/13 with L flank and lower back pain, loose stools Denied dysuria, hematuria, f/c, melena Allergies: Coded Allergies: No Known Allergies (Unverified , 05/24/13) Medication History Scheduled Aspirin* (Aspir 81*), 81 MG ORAL DAILY, (Reported) Atorvastatin Calcium* (Atorvastatin Calcium*), 20 MG ORAL BEDTIME, (Reported) Insulin Detemir (Levemir), 0 SUBQ BEDTIME, (Reported) Labetalol HCl (Labetalol HCl), 400 MG GT Q12HR Lisinopril (Lisinopril*), 20 MG ORAL BID Sevelamer Carbonate* (Renvela*), 800 MG ORAL THREE TIMES A DAY [mvi], 5 ML GT DAILY, (Reported) Scheduled PRN Hydrocodone Bit/Acetaminophen 5-325* ([place] 5-325*), 1 TAB ORAL Q6H PRN for For Pain Miscellaneous Medications Insulin Aspart* (Novolog*), 0 SUBQ, (Reported) Patient History Healthcare decision maker Resuscitation status Advanced Directive on File Patient History Narrative Pmhx: as above Shx: Denies: smoking, alcohol use, drug use Fhx: non contributory Review of Systems All Other Systems: negative except mentioned in HPI Physical Exam Physical Exam Narrative not examined as pt was on MRI Last 24 Hour Vital Signs Date Time Temp Pulse Resp B/P (MAP) Pulse Ox O2 Delivery O2 Flow Rate FiO2 04/14/20 12:00 98.3 69 18 100/48 (65) 96 04/14/20 09:00 104/46 04/14/20 09:00 Room Air 04/14/20 08:00 97.9 64 18 104/46 (65) 97 04/14/20 04:00 97.2 72 18 99/45 (63) 95 04/14/20 00:18 Room Air 04/14/20 00:00 97.5 74 18 113/58 (76) 98 04/13/20 23:10 98.7 75 12 111/56 100 Room Air 04/13/20 23:00 79 12 Room Air 04/13/20 22:54 98.7 04/13/20 21:08 98.7 04/13/20 19:50 98.6 79 12 126/65 100 Room Air Intake and Output 04/13/20 04/14/20 19:00 07:00 Intake Total 0 ml Output Total 0 ml Balance 0 ml Intake Oral 0 ml Output Urine Total 0 ml Laboratory Tests Test 04/13/20 19:58 04/13/20 20:14 POC Whole Blood Glucose 217 MG/DL (74-106) H White Blood Count 6.8 K/UL (4.8-10.8) Red Blood Count 2.85 M/UL (4.20-5.40) L Hemoglobin 8.3 G/DL (12.0-16.0) L Hematocrit 26.0 % (37.0-47.0) L Mean Corpuscular Volume 91 FL (80-99) Mean Corpuscular Hemoglobin 29.2 PG (27.0-31.0) Mean Corpuscular Hemoglobin Concent 32.1 G/DL (32.0-36.0) Red Cell Distribution Width 14.3 % (11.6-14.8) Platelet Count 193 K/UL (150-450) Mean Platelet Volume 6.5 FL (6.5-10.1) Neutrophils (%) (Auto) 74.2 % (45.0-75.0) Lymphocytes (%) (Auto) 13.8 % (20.0-45.0) L Monocytes (%) (Auto) 7.5 % (1.0-10.0) Eosinophils (%) (Auto) 3.3 % (0.0-3.0) H Basophils (%) (Auto) 1.1 % (0.0-2.0) Prothrombin Time 10.7 SEC (9.30-11.50) Prothromb Time International Ratio 1.0 (0.9-1.1) Activated Partial Thromboplast Time 24 SEC (23-33) Sodium Level 142 MMOL/L (136-145) Potassium Level 3.9 MMOL/L (3.5-5.1) Chloride Level 98 MMOL/L (98-107) Carbon Dioxide Level 33 MMOL/L (21-32) H Anion Gap 11 mmol/L (5-15) Blood Urea Nitrogen 70 mg/dL (7-18) H Creatinine 11.8 MG/DL (0.55-1.30) H Estimat Glomerular Filtration Rate 3.9 mL/min (>60) Glucose Level 237 MG/DL (74-106) H Calcium Level 7.9 MG/DL (8.5-10.1) L Total Bilirubin 0.3 MG/DL (0.2-1.0) Aspartate Amino Transf (AST/SGOT) 12 U/L (15-37) L Alanine Aminotransferase (ALT/SGPT) 8 U/L (12-78) L Alkaline Phosphatase 125 U/L (46-116) H Troponin I 0.005 ng/mL (0.000-0.056) Total Protein 7.0 G/DL (6.4-8.2) Albumin 3.5 G/DL (3.4-5.0) Globulin 3.5 g/dL Albumin/Globulin Ratio 1.0 (1.0-2.7) Lipase 271 U/L (73-393) Microbiology Date/Time Source Procedure Growth Status 04/13/20 22:30 Nasopharynx SARS-CoV-2 RdRp Gene Assay - Final Complete Height (Feet): 5 Height (Inches): 2.00 Weight (Pounds): 156 Medications Current Medications Medications (Trade) Dose Ordered Sig/Gini Route PRN Reason Start Time Stop Time Status Last Admin Dose Admin Acetaminophen/ Hydrocodone Bitart ([place] 5/325) 1 tab Q6H PRN ORAL For Pain 04/13/20 23:45 04/20/20 23:44 Aspirin (Ecotrin) 81 mg DAILY ORAL 04/14/20 09:00 05/29/20 08:59 04/14/20 09:03 Atorvastatin Calcium (Lipitor) 20 mg BEDTIME ORAL 04/14/20 21:00 07/13/20 20:59 Dextrose (Dextrose 50%) 25 ml Q30M PRN IV Hypoglycemia 04/13/20 23:45 07/12/20 23:44 Dextrose (Dextrose 50%) 50 ml Q30M PRN IV Hypoglycemia 04/13/20 23:45 07/12/20 23:44 Diphenhydramine HCl (Benadryl) 25 mg Q6H PRN IVP Itching 04/13/20 23:45 05/13/20 23:44 Docusate Sodium (Colace) 100 mg THREE TIMES A DAY ORAL 04/14/20 13:00 05/14/20 12:59 Epoetin Jairo (Epoetin Jairo(ESRD on dialysis)) 10,000 unit TUE-TUE-TUE SUBQ 04/14/20 21:00 07/13/20 20:59 Heparin Sodium (Porcine) (Heparin 5000 units/ml) 5,000 units EVERY 12 HOURS SUBQ 04/14/20 09:00 05/29/20 00:29 04/14/20 09:06 Hydromorphone HCl (Dilaudid) 1 mg Q8H PRN IVP Severe Pain (Pain Scale 7-10) 04/13/20 23:45 04/20/20 23:44 Insulin Aspart (NovoLOG) BEFORE MEALS AND HS SUBQ 04/14/20 06:30 07/13/20 06:29 04/14/20 11:56 Levetiracetam (Keppra) 500 mg Q12HR ORAL 04/14/20 09:00 05/14/20 00:29 04/14/20 09:03 Lisinopril (ZestriL) 10 mg DAILY ORAL 04/15/20 09:00 05/14/20 08:59 Metoclopramide HCl (Reglan) 10 mg Q6H PRN IVP Nausea & Vomiting 04/13/20 23:45 05/13/20 23:44 Ondansetron HCl (Zofran) 4 mg Q6H PRN IVP Nausea & Vomiting refractory 04/13/20 23:45 05/13/20 23:44 Pantoprazole (Protonix) 40 mg EVERY 12 HOURS ORAL 04/14/20 09:00 05/14/20 00:29 04/14/20 09:05 Sevelamer Carbonate (Renvela) 800 mg THREE TIMES A DAY ORAL 04/14/20 09:00 07/13/20 08:59 04/14/20 09:03 Assessment/Plan Assessment/Plan: Abx: None Assessment: COVID19 neg (04/13 rapid COVID PCR neg) -CXR: Cardiomegaly and mild pulmonary vascular congestion. Afebrile No leukocytosis Abd pain, L flank pain -CT abd/p wo: Bladder wall thickening out of proportion to level of distention. Findings are suspicious for cystitis. Recommend correlation with urinalysis. Nonspecific dilatation of the distal main pancreatic duct which also contains a small amount of air. Query recent ERCP. In the absence of such history, an underlying obstructing lesion seen at the level of the ampulla should be excluded. Diarrhea Dm2 AOCKD HLD Sp hysterectomy nephrolithiasis CVA 2011 HTN ESRD on HD via L AVG Plan: -Continue to monitor off abx -f/u cx -Monitor CBC/CMP, temperatures -ua/ w reflex, Cdiff, stool cx -GI f.u -plan for MRCP Thank you for this consultation. Will continue to follow along with you. Discussed with SEEMA. Na Ndiaye M.D. Apr 14, 2020 12:43
[2020-04-14] MEDS: Docusate 100mg cap ORAL SCH ×2 (12:45→17:36)
[2020-04-14 12:47] LABS: ALANINE AMINOTRANSFERASE < 6 U/L (12-78); ALBUMIN 3.2 G/DL (3.4-5.0); ALBUMIN/GLOBULIN RATIO 0.9 (1.0-2.7); ALKALINE PHOSPHATASE 102 U/L (46-116); ANION GAP 10 mmol/L (5-15); ASPARTATE AMINO TRANSFERASE 8 U/L (15-37); BILIRUBIN,TOTAL 0.4 MG/DL (0.2-1.0); BLOOD UREA NITROGEN 72 mg/dL (7-18); CALCIUM 7.8 MG/DL (8.5-10.1); CARBON DIOXIDE 34 MMOL/L (21-32); CHLORIDE 98 MMOL/L (98-107); CREATININE 12.6 MG/DL (0.55-1.30); POTASSIUM 3.8 MMOL/L (3.5-5.1); SODIUM 142 MMOL/L (136-145)
[2020-04-14 16:00] VITALS: BP 110/59
--- NOTE | 2020-04-14 16:30 | Diagnostic Imaging Report ---
Indication: Chronic renal failure, flank pain, abnormal renal function tests Technique: Grayscale and duplex images of the kidneys, retroperitoneum, and bladder were obtained. Comparison: 08/20/2015; also CT scan 04/13/2020 Findings: Right kidney measures 8.5 cm in length. Left kidney measures 8.4 cm in length. Both kidneys demonstrate increased echogenicity. No hydronephrosis. Echogenic 3 mm focus in the right renal sinus probably represents a small calculus and echogenic foci in the left renal sinus could represent small calculi; these were demonstrated on prior CT scan as well. The bladder demonstrates some wall thickening.. Normal inferior vena cava. Bladder is nondistended, demonstrates some wall thickening. Impression: Small echogenic kidneys bilaterally, consistent with known history of chronic medical renal disease Bilateral nonobstructive intrarenal calculi, also demonstrated on previous day's CT scan Negative for hydronephrosis Nonspecific bladder wall thickening.
--- NOTE | 2020-04-14 17:46 | Diagnostic Imaging Report ---
Indication: Abdominal pain, abnormal findings on recent CT scan Technique: Coronal and axial single shot fast spin-echo breath-hold, axial T2 FRFSE, 2-D thick slab MRCP, AXIAL 2-D FIESTA fat saturated, axial 3-D dual echo breath-hold, water weighted axial LAVA FLEX, revealed 3-D MRCP images were obtained of the abdomen. MIP reconstructions were generated of the bile ducts Comparison: CT scan dated 04/13/2020 Findings: The common bile duct is dilated, measuring up to 17 mm in diameter. No definite downstream obstructive lesion is demonstrated. No filling defects to suggest choledocholithiasis. There is mild dilatation of the central intrahepatic ducts. No gallstones are demonstrated. There is unusual tortuosity and dilatation of the pancreatic duct, with downstream measures up to 11 mm in diameter. No pancreatic head mass is demonstrated.. Apparent filling defects within the pancreatic duct likely represent gas bubbles reported on recent CT scan. The liver, spleen, adrenals are unremarkable. There are renal cysts bilaterally. Both kidneys are atrophic. The bladder wall is thickened. This is reported on prior CT scan. Impression: Dilated common bile duct, measuring up to 17 mm in diameter. No definite choledocholithiasis or downstream obstructive lesion demonstrated. Significance uncertain. Occult ampullary obstructive lesion possible Dilated pancreatic duct, measuring up to 11 mm in diameter, without definite downstream obstructive lesion. Occult ampullary obstructive lesion likewise also possible. Unusual finding of filling defects within the pancreatic duct, most likely reflects gas bubbles demonstrated on prior CT scan. Etiology of this is uncertain Atrophic kidneys, consistent with medical renal disease, also described on prior imaging studies. Thickened bladder wall, may indicate cystitis
[2020-04-14 20:00] VITALS: BP 110/56
[2020-04-14] MEDS: Atorvastatin 20mg tab ORAL SCH ×2 (20:59→21:00)
[2020-04-14] MEDS: Epoetin Alfa-EPBX(ESRD on dialysis)10,000 unit/ml vial SUBQ SCH (21:05)
[2020-04-15] VITALS (10 sets, daily range): BP systolic 99–158; BP diastolic 40–101
[2020-04-15] MEDS: NovoLOG Insulin Flexpen SUBQ SCH ×4 (05:25→20:13)
--- NOTE | 2020-04-15 07:54 | Pre-Procedure Note/Attestation ---
Pre-Procedure Note/Attestation Complete Prior to Procedure Planned Procedure: not applicable Procedure Narrative: egd Indications for Procedure Pre-Operative Diagnosis: abd pain Attestation I attest that I discussed the nature of the procedure; its benefits; risks and complications; and alternatives (and the risks and benefits of such alternatives), prior to the procedure, with the patient (or the patient's legal apparel trimmings sales representative). I attest that, if there was a reasonable possibility of needing a blood transfusion, the patient (or the patient's legal apparel trimmings sales representative) was given the [facility] standardized written summary, pursuant to the [place] Blood Safety Act ([place] Health and Safety Code # 1645, as amended). I attest that I re-evaluated the patient just prior to the surgery and that there has been no change in the patient's H&P, except as documented below: Petr Chapa MD Apr 15, 2020 07:54
--- NOTE | 2020-04-15 08:24 | General Progress Note ---
Subjective Allergies: Coded Allergies: No Known Allergies (Unverified , 05/24/13) Objective Last 24 Hour Vital Signs Date Time Temp Pulse Resp B/P (MAP) Pulse Ox O2 Delivery O2 Flow Rate FiO2 04/15/20 04:00 97.4 70 19 110/56 (74) 99 04/14/20 21:00 Room Air 04/14/20 20:00 97.8 77 18 110/56 (74) 99 04/14/20 16:00 97.8 69 19 110/59 (76) 98 04/14/20 12:00 98.3 69 18 100/48 (65) 96 04/14/20 09:00 104/46 04/14/20 09:00 Room Air Intake and Output 04/14/20 04/15/20 19:00 07:00 Intake Total 240 ml Output Total 2000 ml Balance 240 ml -2000 ml Intake Oral 240 ml Hemodialysis UF 2000 ml Laboratory Tests 04/14/20 12:00: White Blood Count 6.8, Red Blood Count 2.96L, Hemoglobin 8.7L, Hematocrit 26.5L, Mean Corpuscular Volume 90, Mean Corpuscular Hemoglobin 29.4, Mean Corpuscular Hemoglobin Concent 32.8, Red Cell Distribution Width 12.9, Platelet Count 179, Mean Platelet Volume 6.5, Neutrophils (%) (Auto) 65.0, Lymphocytes (%) (Auto) 22.0, Monocytes (%) (Auto) 7.6, Eosinophils (%) (Auto) 4.3H, Basophils (%) (Auto) 1.0, Sodium Level 142, Potassium Level 3.8, Chloride Level 98, Carbon Dioxide Level 34H, Anion Gap 10, Blood Urea Nitrogen 72H, Creatinine 12.6H, Estimat Glomerular Filtration Rate 3.6, Glucose Level 160H, Calcium Level 7.8L, Total Bilirubin 0.4, Aspartate Amino Transf (AST/SGOT) 8L, Alanine Aminotransferase (ALT/SGPT) < 6L, Alkaline Phosphatase 102, Total Protein 6.6, Albumin 3.2L, Globulin 3.4, Albumin/Globulin Ratio 0.9L Height (Feet): 5 Height (Inches): 5.00 Weight (Pounds): 154 Assessment/Plan Assessment/Plan: S: I am ok O: seems comfortable Exam: AT/NC, chest: clear, Heart: Regular, ABD: soft, MS: Imbalance, atrophied muscles, no asymmetric deficeit, Neuro: awake alert, Psych: normal Med: reviewed and reconciled Labs: dated Apr 15 reviewed Medical Decision Making Diagnostic Impression: Primary Impression: Flank pain Additional Impressions: Missed dialysis ESRD (end stage renal disease) on dialysis Anemia Qualified Codes: N18.6 - End stage renal disease; D63.1 - Anemia in chronic kidney disease; Z99.2 - Dependence on renal dialysis COVID-19 ruled out by laboratory testing DM Hyperlipidemia Abn imaging finding in Abd CT Imbalance, Deconditioning Plan: GI - procedure NPO for now hold LA-insulin check iron panel AUSTEN Colindres PT/OT consulted Cristian White MD Apr 15, 2020 08:24
[2020-04-15] MEDS ORDERED: Lidocaine 1% MPF 10mg/ml 5ml ONE (08:30)
[2020-04-15] MEDS ORDERED: NS 500ML IVPB ONE (08:46)
--- NOTE | 2020-04-15 08:53 | General Progress Note ---
Subjective Date patient seen: Apr 15, 2020 Time patient seen: 07:00 - am Constitutional: Reports: no symptoms HEENT: Reports: no symptoms Cardiovascular: Reports: no symptoms Respiratory: Reports: no symptoms Gastrointestinal/Abdominal: Reports: no symptoms Genitourinary: Reports: no symptoms Neurologic/Psychiatric: Reports: no symptoms Endocrine: Reports: no symptoms Hematologic/Lymphatic: Reports: no symptoms Allergies: Coded Allergies: No Known Allergies (Unverified , 05/24/13) Subjective This is a 64 y/o female seen on the med/surg floor of [facility] Patient is in bed and showing no signs of pain or distress. Continues to deny pain and Dilaudid was discontinued. She has not requested the [place]. No new complaints at this time. Objective Last 24 Hour Vital Signs Date Time Temp Pulse Resp B/P (MAP) Pulse Ox O2 Delivery O2 Flow Rate FiO2 04/15/20 04:00 97.4 70 19 110/56 (74) 99 04/14/20 21:00 Room Air 04/14/20 20:00 97.8 77 18 110/56 (74) 99 04/14/20 16:00 97.8 69 19 110/59 (76) 98 04/14/20 12:00 98.3 69 18 100/48 (65) 96 04/14/20 09:00 104/46 04/14/20 09:00 Room Air Intake and Output 04/14/20 04/15/20 19:00 07:00 Intake Total 240 ml Output Total 2000 ml Balance 240 ml -2000 ml Intake Oral 240 ml Hemodialysis UF 2000 ml Laboratory Tests 04/14/20 12:00: White Blood Count 6.8, Red Blood Count 2.96L, Hemoglobin 8.7L, Hematocrit 26.5L, Mean Corpuscular Volume 90, Mean Corpuscular Hemoglobin 29.4, Mean Corpuscular Hemoglobin Concent 32.8, Red Cell Distribution Width 12.9, Platelet Count 179, Mean Platelet Volume 6.5, Neutrophils (%) (Auto) 65.0, Lymphocytes (%) (Auto) 22.0, Monocytes (%) (Auto) 7.6, Eosinophils (%) (Auto) 4.3H, Basophils (%) (Auto) 1.0, Sodium Level 142, Potassium Level 3.8, Chloride Level 98, Carbon Dioxide Level 34H, Anion Gap 10, Blood Urea Nitrogen 72H, Creatinine 12.6H, Estimat Glomerular Filtration Rate 3.6, Glucose Level 160H, Calcium Level 7.8L, Total Bilirubin 0.4, Aspartate Amino Transf (AST/SGOT) 8L, Alanine Aminotransferase (ALT/SGPT) < 6L, Alkaline Phosphatase 102, Total Protein 6.6, Albumin 3.2L, Globulin 3.4, Albumin/Globulin Ratio 0.9L Height (Feet): 5 Height (Inches): 5.00 Weight (Pounds): 154 General Appearance: no apparent distress, alert EENT: PERRL/EOMI, normal ENT inspection Neck: non-tender, normal alignment Cardiovascular: normal rate, regular rhythm Abdomen: non tender, soft Extremities: non-tender Edema: trace edema Neurologic: alert, oriented x 3 Skin: normal pigmentation Assessment/Plan Assessment/Plan: (1) Flank pain (2) ESRD on hemodialysis Patient to be continued on [place]. D/w Dr. Cifuentes and he concurred. Evans Gordon Apr 15, 2020 08:53
--- NOTE | 2020-04-15 08:59 | Endoscopy Procedure Note ---
Endoscopy Procedure Note General Indication for Procedure: abd pain Procedures Performed: EGD Operative Findings/Diagnosis: gastric ulcer Specimen: yes Pt Tolerated Procedure Well: Yes Estimated Blood Loss: none Anesthesia Anesthesiologist: hoda Anesthesia: MAC Inserted Devices Implant(s) used?: No GI Core Measures 50 yrs or older w/o bx or poly: Not Applicable 10yrs. F/U recommended: Not Applicable Petr Cahpa MD Apr 15, 2020 08:59
[2020-04-15] MEDS: Lisinopril 10mg tab ORAL SCH (09:00)
--- NOTE | 2020-04-15 09:15 | Consultation ---
DATE OF CONSULTATION: 04/14/2020 PAIN MANAGEMENT CONSULTATION CONSULTING PHYSICIAN: Jesse Cifuentes M.D. REFERRING PHYSICIAN: Cristian White MD PHYSICIAN FAMILY LITERACY COORDINATOR: Jad Eastman CHIEF COMPLAINT: Flank pain. HISTORY OF PRESENT ILLNESS: This is a 64-year-old female, who is being seen on the Med/Surg floor of [facility] for initial pain management. The patient was admitted under the care of Dr. White due to bilateral flank pain since yesterday. It is a constant acute on chronic pain, which has been a 02/27. However, at this time, she is complaining of no pain. The pain is dull and achy, increased with lying down. The patient has a history of end-stage renal disease, on dialysis, and missed her hemodialysis, complaining of flank pain, was given 1 time dose of Dilaudid in the ER, which had helped the pain and also on Dilaudid 1 mg IV every 8 hours as needed for severe pain and Olpe 10mg every 6 hours as needed for pain. She again is denying any pain or discomfort, has not requested any Dilaudid and at this time and we were consulted so the patient would have adequate pain control while here in the hospital. PAST MEDICAL HISTORY: Hypertension, diabetes mellitus, seizure disorder, end-stage renal disease, on hemodialysis. PAST SURGICAL HISTORY: Hysterectomy and right hand surgery. SOCIAL HISTORY: Denies smoking, drinking alcohol, or IV drug abuse. ALLERGIES: No known drug allergies. MEDICATIONS: Aspirin, atorvastatin, insulin, lisinopril, Renvela, and Olpe. REVIEW OF SYSTEMS: Denies rash, fever, chills, sweating, dizziness, drowsiness, blurred vision, chest pain. No nausea, vomiting, or blood in the stool. PHYSICAL EXAMINATION: GENERAL: Alert, awake, and oriented. VITAL SIGNS: Blood pressure 99/45, heart rate 77, oxygen saturation 98%, respirations 18, temperature 91 degrees Fahrenheit. HEENT: PERRLA. NECK: Range of motion is full in all directions. No tenderness to paracervical muscles. No adenopathy. LUNGS: Decreased breath sounds bilaterally. HEART: S1 and S2, regular. ABDOMEN: Soft and nontender. BACK: Range of motion is full on flexion and extension. EXTREMITIES: Upper and lower extremity range of motion is decreased due to the patient's condition. No cyanosis. No clubbing. No edema. Sensory is reduced. Reflexes are not obtainable. No adenopathy. ASSESSMENT AND PLAN: This is a 64-year-old female with flank pain, end-stage renal disease on hemodialysis. The patient is on Dilaudid and Olpe as needed. The patient was discussed with Dr. Cifuentes and Dr. Cifuentes concurred. We will follow the patient. Thank you very much for the courtesy of this consultation. Jesse Cifuentes M.D. TAMIA Eastman DR: Jerad JOB#: [id number] CC: VELIA
--- NOTE | 2020-04-15 09:22 | Anethesia Preoperative Eval ---
Anesthesia Pre-op PMH/ROS General Date of Evaluation: Apr 15, 2020 Time of Evaluation: 08:35 Anesthesiologist: myrtle ASA Score: ASA 4 Mallampati Score Class I : Soft palate, uvula, fauces, pillars visible Class II: Soft palate, uvula, fauces visible Class III: Soft palate, base of uvula visible Class IV: Only hard plate visible Mallampati Classification: Class III Surgeon: roma Diagnosis: anemia Surgical Procedure: EGD Anesthesia History: none Social History: smoking Family History: no anesthesia problems Allergies: Coded Allergies: No Known Allergies (Unverified , 05/24/13) Medications: see eMAR Patient NPO?: Yes NPO Date: Apr 15, 2020 NPO Time: 00:01 Past Medical History Cardiovascular: Reports: HTN, CAD Gastrointestinal/Genitourinary: Reports: GERD, ESRD Endocrine: Reports: DM HEENT: Denies: cataract (L), cataract (R), glaucoma, [place] (L), [place] (R), other Hematology/Immune: Reports: anemia; Denies: DVT, bleeding disorder, other Musculoskeletal/Integumentary: Denies: OA, RA, DJD, DDD, edema, other Other: other - sepsis PSxH Narrative: unknown Anesthesia Pre-op Phys. Exam Physician Exam Last Vital Signs Date Time Temp Pulse Resp B/P (MAP) Pulse Ox O2 Delivery O2 Flow Rate FiO2 04/15/20 09:00 97.5 82 14 99/40 100 Nasal Cannula 3 Constitutional: NAD Neurologic: CN 2-12 intact Cardiovascular: RRR Respiratory: CTA Gastrointestinal: S/NT/ND Airway Exam Mallampati Classification 3 Mallampati Score: Class III MO: limited ROM: limited Dentures: no upper, no lower Anesthesia Pre-op A/P Labs Hematology Test 04/14/20 12:00 White Blood Count 6.8 K/UL (4.8-10.8) Red Blood Count 2.96 M/UL (4.20-5.40) L Hemoglobin 8.7 G/DL (12.0-16.0) L Hematocrit 26.5 % (37.0-47.0) L Mean Corpuscular Volume 90 FL (80-99) Mean Corpuscular Hemoglobin 29.4 PG (27.0-31.0) Mean Corpuscular Hemoglobin Concent 32.8 G/DL (32.0-36.0) Red Cell Distribution Width 12.9 % (11.6-14.8) Platelet Count 179 K/UL (150-450) Mean Platelet Volume 6.5 FL (6.5-10.1) Neutrophils (%) (Auto) 65.0 % (45.0-75.0) Lymphocytes (%) (Auto) 22.0 % (20.0-45.0) Monocytes (%) (Auto) 7.6 % (1.0-10.0) Eosinophils (%) (Auto) 4.3 % (0.0-3.0) H Basophils (%) (Auto) 1.0 % (0.0-2.0) Chemistry Test 04/14/20 12:00 Sodium Level 142 MMOL/L (136-145) Potassium Level 3.8 MMOL/L (3.5-5.1) Chloride Level 98 MMOL/L (98-107) Carbon Dioxide Level 34 MMOL/L (21-32) H Anion Gap 10 mmol/L (5-15) Blood Urea Nitrogen 72 mg/dL (7-18) H Creatinine 12.6 MG/DL (0.55-1.30) H Estimat Glomerular Filtration Rate 3.6 mL/min (>60) Glucose Level 160 MG/DL (74-106) H Calcium Level 7.8 MG/DL (8.5-10.1) L Total Bilirubin 0.4 MG/DL (0.2-1.0) Aspartate Amino Transf (AST/SGOT) 8 U/L (15-37) L Alanine Aminotransferase (ALT/SGPT) < 6 U/L (12-78) L Alkaline Phosphatase 102 U/L (46-116) Total Protein 6.6 G/DL (6.4-8.2) Albumin 3.2 G/DL (3.4-5.0) L Globulin 3.4 g/dL Albumin/Globulin Ratio 0.9 (1.0-2.7) L Studies Pre-op Studies: EKG - S Risk Assessment & Plan Assessment: covid neg Plan: mac Status Change Before Surgery: No Pre-Antibiotics Drug: none Erika Kaiser CRNA Apr 15, 2020 09:22
--- NOTE | 2020-04-15 09:23 | Immediate Post-Op Evaluation ---
Immediate Post-Op Evalulation Immediate Post-Op Evalulation Procedure: EGD Date of Evaluation: Apr 15, 2020 Time of Evaluation: 09:05 IV Fluids: 500 Blood Pressure Systolic: 140 Blood Pressure Diastolic: 90 Pulse Rate: 82 Respiratory Rate: 14 O2 Sat by Pulse Oximetry: 99 Temperature (Fahrenheit): 97.5 Nausea: No Vomiting: No Complications none Patient Status: awake, reacts, patent Erika Kaiser CRNA Apr 15, 2020 09:23
--- NOTE | 2020-04-15 09:29 | 48 Hour Post Anesthesia Eval ---
Post Anesthesia Evaluation Procedure: EGD Date of Evaluation: Apr 15, 2020 Time of Evaluation: 09:29 Blood Pressure Systolic: 158 0: 100 Pulse Rate: 70 Respiratory Rate: 14 O2 Sat by Pulse Oximetry: 98 Airway: patent Nausea: No Vomiting: No Hydration Status: adequate Cardiopulmonary Status: stable Mental Status/LOC: patient returned to baseline Follow-up Care/Observations: na Post-Anesthesia Complications: none Follow-up care needed: N/A Erika Kaiser CRNA Apr 15, 2020 09:29
--- NOTE | 2020-04-15 09:30 | Procedure Note ---
DATE OF PROCEDURE: 04/15/2020 SURGEON: Petr Chapa MD. REFERRING PHYSICIAN: Cristian White MD. PROCEDURE: Upper endoscopy with biopsy. ANESTHESIA: Per SUPERVISOR [employer]G LICENSE OFFICER, Erika Tarrillion. INSTRUMENT: Olympus adult flexible upper endoscope. INDICATION: Abdominal pain. REASON FOR PROCEDURE: The procedure, risks, benefits, and possible consequences, including hemorrhage, aspiration, perforation and infection, and alternative treatments, were explained to the patient/legal guardian by Dr. Petr Chapa and the patient/legal guardian understood and accepted these risks. PROCEDURE IN DETAIL: After informed consent was obtained and the patient was adequately sedated, Olympus upper endoscope was advanced from mouth into the second portion of the duodenum and retroflexion was performed in the stomach. The patient had evidence of two ulcers in the antrum of the stomach across from each other. This ulcer was clean base, shallow, less than 1 cm in size. The patient also has evidence of gastritis and also duodenitis. Then, we did a biopsy from the antrum and body to rule out H. pylori infection and the scope was retrieved. SUMMARY OF FINDINGS: 1. Two gastric ulcers. 2. Gastritis. 3. Duodenitis. RECOMMENDATION: Follow biopsy results and treat accordingly. Treat for H pylori if it is positive. Meanwhile, the patient to be on PPI daily. She will need a repeat endoscopy in 8 weeks for followup. I want to thank Dr. White for this kind referral. Petr Chapa M.D. DR: GERARDO JOB#: [id number] CC:
[2020-04-15] MEDS: Docusate 100mg cap ORAL SCH ×3 (09:55→17:00)
[2020-04-15] MEDS: Sucralfate 1gm tab ORAL SCH ×4 (09:55→20:11)
[2020-04-15] MEDS: Aspirin EC 81mg tab ORAL SCH (09:55)
[2020-04-15] MEDS: Renvela 800mg Pkt ORAL SCH ×3 (09:56→17:00)
[2020-04-15] MEDS: Heparin 5000 units/ml inj SUBQ SCH ×2 (09:57→20:11)
--- NOTE | 2020-04-15 12:26 | Infectious Diseases Prog Note ---
Assessment/Plan Abx: None Assessment: COVID19 neg (04/13 rapid COVID PCR neg) -CXR: Cardiomegaly and mild pulmonary vascular congestion. Afebrile No leukocytosis Abd pain, L flank pain Dilated CBD- ?etiology -MRCP: Dilated common bile duct, measuring up to 17 mm in diameter. No definite choledocholithiasis or downstream obstructive lesion demonstrated. Significance uncertain. Occult ampullary obstructive lesion possible. Dilated pancreatic duct, measuring up to 11 mm in diameter, without definite downstream obstructive lesion. Occult ampullary obstructive lesion likewise also possible. Unusual finding of filling defects within the pancreatic duct, most likely reflects gas bubbles demonstrated on prior CT scan. Etiology of this is uncertain. Atrophic kidneys, consistent with medical renal disease, also described on prior imaging studies. Thickened bladder wall, may indicate cystitis -CT abd/p wo: Bladder wall thickening out of proportion to level of distention. Findings are suspicious for cystitis. Recommend correlation with urinalysis. Nonspecific dilatation of the distal main pancreatic duct which also contains a small amount of air. Query recent ERCP. In the absence of such history, an underlying obstructing lesion seen at the level of the ampulla should be excluded. -Renal US: Small echogenic kidneys bilaterally, consistent with known history of chronic medical renal disease. Bilateral nonobstructive intrarenal calculi, also demonstrated on previous day's CT scan. Negative for hydronephrosis. Nonspecific bladder wall thickening. Diarrhea -stool cdiff and cx p Dm2 AOCKD HLD Sp hysterectomy nephrolithiasis CVA 2011 HTN ESRD on HD via L AVG Plan: -Continue to monitor off abx -f/u cx -Monitor CBC/CMP, temperatures -f/u ua/ w reflex, Cdiff, stool cx -GI f.u Thank you for this consultation. Will continue to follow along with you. Discussed with RN. Subjective Allergies: Coded Allergies: No Known Allergies (Unverified , 05/24/13) Objective Last 24 Hour Vital Signs Date Time Temp Pulse Resp B/P (MAP) Pulse Ox O2 Delivery O2 Flow Rate FiO2 04/15/20 12:00 97.8 72 18 105/52 (69) 97 04/15/20 09:30 97.3 66 17 103/54 97 Room Air 04/15/20 09:29 70 14 98 04/15/20 09:25 69 15 103/51 98 Room Air 04/15/20 09:23 82 14 99 04/15/20 09:10 68 16 158/101 97 Room Air 04/15/20 09:05 74 17 118/96 100 Nasal Cannula 3 04/15/20 09:00 Room Air 04/15/20 09:00 100/50 04/15/20 09:00 97.5 82 14 99/40 100 Nasal Cannula 3 04/15/20 04:00 97.4 70 19 110/56 (74) 99 04/14/20 21:00 Room Air 04/14/20 20:00 97.8 77 18 110/56 (74) 99 04/14/20 16:00 97.8 69 19 110/59 (76) 98 Height (Feet): 5 Height (Inches): 5.00 Weight (Pounds): 154 HEENT: Normocephalic and atraumatic. Sclerae anicteric. NECK: Supple. No obvious lymphadenopathy. CARDIOVASCULAR: Regular rate and rhythm. Plus S1 and S2. LUNGS: Decreased breath sounds bilaterally based on the supine exam. ABDOMEN: Soft, nontender. No rebound. No guarding. No peritoneal sign. EXTREMITIES: No cyanosis, no clubbing, no edema. Microbiology Date/Time Source Procedure Growth Status 04/13/20 22:30 Nasopharynx SARS-CoV-2 RdRp Gene Assay - Final Complete Current Medications Medications (Trade) Dose Ordered Sig/Gini Route PRN Reason Start Time Stop Time Status Last Admin Dose Admin Acetaminophen/ Hydrocodone Bitart ([place] 5/325) 1 tab Q6H PRN ORAL For Pain 04/13/20 23:45 04/20/20 23:44 Aspirin (Ecotrin) 81 mg DAILY ORAL 04/14/20 09:00 05/29/20 08:59 04/15/20 09:55 Atorvastatin Calcium (Lipitor) 20 mg BEDTIME ORAL 04/14/20 21:00 07/13/20 20:59 Dextrose (Dextrose 50%) 25 ml Q30M PRN IV Hypoglycemia 04/13/20 23:45 07/12/20 23:44 Dextrose (Dextrose 50%) 50 ml Q30M PRN IV Hypoglycemia 04/13/20 23:45 07/12/20 23:44 Diphenhydramine HCl (Benadryl) 25 mg Q6H PRN IVP Itching 04/13/20 23:45 05/13/20 23:44 Docusate Sodium (Colace) 100 mg THREE TIMES A DAY ORAL 04/14/20 13:00 05/14/20 12:59 04/15/20 09:55 Epoetin Jairo (Epoetin Jairo(ESRD on dialysis)) 10,000 unit TUE-TUE-TUE SUBQ 04/14/20 21:00 07/13/20 20:59 04/14/20 21:05 Heparin Sodium (Porcine) (Heparin 5000 units/ml) 5,000 units EVERY 12 HOURS SUBQ 04/14/20 09:00 05/29/20 00:29 04/15/20 09:57 Insulin Aspart (NovoLOG) BEFORE MEALS AND HS SUBQ 04/14/20 06:30 07/13/20 06:29 04/14/20 21:09 Levetiracetam (Keppra) 500 mg Q12HR ORAL 04/14/20 09:00 05/14/20 00:29 04/15/20 09:56 Lisinopril (ZestriL) 10 mg DAILY ORAL 04/15/20 09:00 05/14/20 08:59 Metoclopramide HCl (Reglan) 10 mg Q6H PRN IVP Nausea & Vomiting 04/13/20 23:45 05/13/20 23:44 Ondansetron HCl (Zofran) 4 mg Q6H PRN IVP Nausea & Vomiting refractory 04/13/20 23:45 05/13/20 23:44 Pantoprazole (Protonix) 40 mg EVERY 12 HOURS ORAL 04/14/20 09:00 05/14/20 00:29 04/15/20 09:00 Sevelamer Carbonate (Renvela) 800 mg THREE TIMES A DAY ORAL 04/14/20 09:00 07/13/20 08:59 04/15/20 09:56 Sucralfate (Carafate) 1 gm FOUR TIMES A DAY ORAL 04/15/20 09:00 07/14/20 08:59 04/15/20 09:55 Na Ndiaye M.D. Apr 15, 2020 12:26
--- NOTE | 2020-04-15 13:15 | Nephrology Progress Note ---
Assessment/Plan Problem List: (1) ESRD (end stage renal disease) on dialysis (2) Flank pain (3) Anemia (4) CVA (cerebrovascular accident) Assessment End-stage renal disease, on hemodialysis Tuesday. Missed her last dialysis session. History of anemia of chronic kidney disease History of hydronephrosis Admitted with flank pain Covid 19 ruled out by lab testing first time History of CVA Plan April 15: Today's labs pending. Patient went for endoscopy today. Discussed with RN. Will order dialysis for tomorrow. Continue per consultants. Previously: Check kidney ultrasound for hydronephrosis and bladder distention, results noted Urine analysis and culture Hemodialysis ordered for today Continue to monitor renal parameters Keep the blood pressure blood sugar in check Adjust blood pressure medication dose Continue per ID advice Subjective ROS Limited/Unobtainable: No Constitutional: Reports: malaise Objective Objective Last 24 Hour Vital Signs Date Time Temp Pulse Resp B/P (MAP) Pulse Ox O2 Delivery O2 Flow Rate FiO2 04/15/20 12:00 97.8 72 18 105/52 (69) 97 04/15/20 09:30 97.3 66 17 103/54 97 Room Air 04/15/20 09:29 70 14 98 04/15/20 09:25 69 15 103/51 98 Room Air 04/15/20 09:23 82 14 99 04/15/20 09:10 68 16 158/101 97 Room Air 04/15/20 09:05 74 17 118/96 100 Nasal Cannula 3 04/15/20 09:00 Room Air 04/15/20 09:00 100/50 04/15/20 09:00 97.5 82 14 99/40 100 Nasal Cannula 3 04/15/20 04:00 97.4 70 19 110/56 (74) 99 04/14/20 21:00 Room Air 04/14/20 20:00 97.8 77 18 110/56 (74) 99 04/14/20 16:00 97.8 69 19 110/59 (76) 98 Intake and Output 04/14/20 04/15/20 19:00 07:00 Intake Total 240 ml Output Total 2000 ml Balance 240 ml -2000 ml Intake Oral 240 ml Hemodialysis UF 2000 ml Current Medications Medications (Trade) Dose Ordered Sig/Gini Route PRN Reason Start Time Stop Time Status Last Admin Dose Admin Acetaminophen/ Hydrocodone Bitart ([place] 5/325) 1 tab Q6H PRN ORAL For Pain 04/13/20 23:45 04/20/20 23:44 Aspirin (Ecotrin) 81 mg DAILY ORAL 04/14/20 09:00 05/29/20 08:59 04/15/20 09:55 Atorvastatin Calcium (Lipitor) 20 mg BEDTIME ORAL 04/14/20 21:00 07/13/20 20:59 Dextrose (Dextrose 50%) 25 ml Q30M PRN IV Hypoglycemia 04/13/20 23:45 07/12/20 23:44 Dextrose (Dextrose 50%) 50 ml Q30M PRN IV Hypoglycemia 04/13/20 23:45 07/12/20 23:44 Diphenhydramine HCl (Benadryl) 25 mg Q6H PRN IVP Itching 04/13/20 23:45 05/13/20 23:44 Docusate Sodium (Colace) 100 mg THREE TIMES A DAY ORAL 04/14/20 13:00 05/14/20 12:59 04/15/20 12:22 Epoetin Jairo (Epoetin Jairo(ESRD on dialysis)) 10,000 unit TUE-TUE-TUE SUBQ 04/14/20 21:00 07/13/20 20:59 04/14/20 21:05 Heparin Sodium (Porcine) (Heparin 5000 units/ml) 5,000 units EVERY 12 HOURS SUBQ 04/14/20 09:00 05/29/20 00:29 04/15/20 09:57 Insulin Aspart (NovoLOG) BEFORE MEALS AND HS SUBQ 04/14/20 06:30 07/13/20 06:29 04/15/20 12:24 Levetiracetam (Keppra) 500 mg Q12HR ORAL 04/14/20 09:00 05/14/20 00:29 04/15/20 09:56 Lisinopril (ZestriL) 10 mg DAILY ORAL 04/15/20 09:00 05/14/20 08:59 Metoclopramide HCl (Reglan) 10 mg Q6H PRN IVP Nausea & Vomiting 04/13/20 23:45 05/13/20 23:44 Ondansetron HCl (Zofran) 4 mg Q6H PRN IVP Nausea & Vomiting refractory 04/13/20 23:45 05/13/20 23:44 Pantoprazole (Protonix) 40 mg EVERY 12 HOURS ORAL 04/14/20 09:00 05/14/20 00:29 04/15/20 09:00 Sevelamer Carbonate (Renvela) 800 mg THREE TIMES A DAY ORAL 04/14/20 09:00 07/13/20 08:59 04/15/20 12:23 Sucralfate (Carafate) 1 gm FOUR TIMES A DAY ORAL 04/15/20 09:00 07/14/20 08:59 04/15/20 12:23 Today's blood still not drawn at the 1 PM Height (Feet): 5 Height (Inches): 5.00 Weight (Pounds): 154 General Appearance: no apparent distress Objective No change Supa Gomes MD Apr 15, 2020 13:15
[2020-04-15 15:44] LABS: BASOPHILS % (AUTO) 0.8 % (0.0-2.0); EOSINOPHILS % (AUTO) 4.1 % (0.0-3.0); HEMOGLOBIN 8.1 G/DL (12.0-16.0); LYMPHOCYTES % (AUTO) 22.9 % (20.0-45.0); MEAN CORPUSCULAR VOLUME 92 FL (80-99); MONOCYTES % (AUTO) 7.8 % (1.0-10.0); NEUTROPHILS % (AUTO) 64.5 % (45.0-75.0); PLATELET COUNT 141 K/UL (150-450); RED BLOOD COUNT 2.71 M/UL (4.20-5.40); RED CELL DISTRIBUTION WIDTH 13.4 % (11.6-14.8)
[2020-04-15 15:55] LABS: ANION GAP 10 mmol/L (5-15); BLOOD UREA NITROGEN 50 mg/dL (7-18); CALCIUM 8.2 MG/DL (8.5-10.1); CARBON DIOXIDE 30 MMOL/L (21-32); CHLORIDE 96 MMOL/L (98-107); CREATININE 8.3 MG/DL (0.55-1.30); SODIUM 136 MMOL/L (136-145)
[2020-04-15 16:01] LABS: % IRON SATURATION 38 % (15-50); IRON 55 ug/dL (50-175); TOTAL IRON BINDING CAPACITY 144 ug/dL (250-450)
[2020-04-15 16:11] LABS: ALANINE AMINOTRANSFERASE < 6 U/L (12-78); ALBUMIN 2.9 G/DL (3.4-5.0); ALBUMIN/GLOBULIN RATIO 0.9 (1.0-2.7); ALKALINE PHOSPHATASE 101 U/L (46-116); ASPARTATE AMINO TRANSFERASE 12 U/L (15-37); BILIRUBIN,TOTAL 0.3 MG/DL (0.2-1.0); FERRITIN 780 NG/ML (8-388); PHOSPHORUS 5.5 MG/DL (2.5-4.9)
[2020-04-15 16:13] LABS: AMYLASE 56 U/L (25-115); CHOLESTEROL 192 MG/DL (< 200); HDL CHOLESTEROL 39 MG/DL (40-60); TRIGLYCERIDES 204 MG/DL (30-150)
[2020-04-15] MEDS: Atorvastatin 20mg tab ORAL SCH (20:11)
[2020-04-16 03:52] VITALS: BP 96/50
[2020-04-16 05:08] VITALS: BP 103/58
[2020-04-16] MEDS: NovoLOG Insulin Flexpen SUBQ SCH ×4 (05:51→21:06)
[2020-04-16 08:00] VITALS: BP 96/50
[2020-04-16] MEDS: Sucralfate 1gm tab ORAL SCH ×4 (08:24→21:02)
[2020-04-16] MEDS: Renvela 800mg Pkt ORAL SCH ×3 (08:24→17:23)
[2020-04-16] MEDS: Aspirin EC 81mg tab ORAL SCH (08:24)
[2020-04-16] MEDS: Docusate 100mg cap ORAL SCH ×3 (08:25→17:25)
[2020-04-16] MEDS: Lisinopril 10mg tab ORAL SCH (08:25)
[2020-04-16] MEDS: Heparin 5000 units/ml inj SUBQ SCH ×2 (08:25→21:00)
--- NOTE | 2020-04-16 08:36 | General Progress Note ---
Subjective Date patient seen: Apr 16, 2020 Time patient seen: 07:00 - am Constitutional: Reports: no symptoms HEENT: Reports: no symptoms Cardiovascular: Reports: no symptoms Respiratory: Reports: no symptoms Gastrointestinal/Abdominal: Reports: no symptoms Genitourinary: Reports: no symptoms Neurologic/Psychiatric: Reports: no symptoms Endocrine: Reports: no symptoms Hematologic/Lymphatic: Reports: no symptoms Allergies: Coded Allergies: No Known Allergies (Unverified , 05/24/13) Subjective This is a 64 y/o female seen on the med/surg floor of [facility] [place]. Patient reports she is doing well and has no pain at this time. No new complaints. Objective Last 24 Hour Vital Signs Date Time Temp Pulse Resp B/P (MAP) Pulse Ox O2 Delivery O2 Flow Rate FiO2 04/16/20 08:25 96/50 04/16/20 08:00 97.9 69 19 96/50 (65) 97 04/16/20 05:08 98.6 75 18 103/58 (73) 96 04/16/20 03:52 98.9 80 18 96/50 (65) 98 04/15/20 23:45 98.6 73 18 115/58 (77) 96 04/15/20 20:54 Room Air 04/15/20 20:00 98.0 77 18 115/64 (81) 98 04/15/20 16:00 97.2 72 18 99/51 (67) 95 04/15/20 12:00 97.8 72 18 105/52 (69) 97 04/15/20 09:30 97.3 66 17 103/54 97 Room Air 04/15/20 09:29 70 14 98 04/15/20 09:25 69 15 103/51 98 Room Air 04/15/20 09:23 82 14 99 04/15/20 09:10 68 16 158/101 97 Room Air 04/15/20 09:05 74 17 118/96 100 Nasal Cannula 3 04/15/20 09:00 Room Air 04/15/20 09:00 100/50 04/15/20 09:00 97.5 82 14 99/40 100 Nasal Cannula 3 Intake and Output 04/15/20 04/16/20 19:00 07:00 Intake Total 600 ml 240 ml Output Total 0 ml Balance 600 ml 240 ml Intake Oral 480 ml 240 ml IV Total 120 ml Estimated Blood Loss 0 ml Laboratory Tests 10/27/20 15:00: White Blood Count 6.0, Red Blood Count 2.71L, Hemoglobin 8.1L, Hematocrit 25.0L, Mean Corpuscular Volume 92, Mean Corpuscular Hemoglobin 30.0, Mean Corpuscular Hemoglobin Concent 32.5, Red Cell Distribution Width 13.4, Platelet Count 141L, Mean Platelet Volume 7.2, Neutrophils (%) (Auto) 64.5, Lymphocytes (%) (Auto) 22.9, Monocytes (%) (Auto) 7.8, Eosinophils (%) (Auto) 4.1H, Basophils (%) (Auto) 0.8, Sodium Level 136, Potassium Level 4.0, Chloride Level 96L, Carbon Dioxide Level 30, Anion Gap 10, Blood Urea Nitrogen 50H, Creatinine 8.3H, Estimat Glomerular Filtration Rate 5.8, Glucose Level 182H, Hemoglobin A1c 6.8H, Uric Acid 5.0, Calcium Level 8.2L, Phosphorus Level 5.5H, Magnesium Level 2.7H, Iron Level 55, Total Iron Binding Capacity 144L, Percent Iron Saturation 38, Unsaturated Iron Binding 89L, Ferritin 780H, Total Bilirubin 0.3, Gamma Glutamyl Transpeptidase 7, Aspartate Amino Transf (AST/SGOT) 12L, Alanine A minotransferase (ALT/SGPT) < 6L, Alkaline Phosphatase 101, C-Reactive Protein, Quantitative 1.5H, Pro-B-Type Natriuretic Peptide 7971H, Total Protein 6.1L, Albumin 2.9L, Globulin 3.2, Albumin/Globulin Ratio 0.9L, Triglycerides Level 204H, Cholesterol Level 192, LDL Cholesterol 113H, HDL Cholesterol 39L, Cholesterol/HDL Ratio 4.9H, Amylase Level 56, Lipase 202, Carcinoembryonic Antigen 5.6H, [place] 19-9 Antigen [Pending], Vitamin B12 Level 692, Thyroid Stimulating Hormone (TSH) 1.125, Hepatitis B Surface Antigen [Pending] Height (Feet): 5 Height (Inches): 5.00 Weight (Pounds): 154 Objective General Appearance: no apparent distress, alert EENT: PERRL/EOMI, normal ENT inspection Neck: non-tender, normal alignment Cardiovascular: normal rate, regular rhythm Abdomen: non tender, soft Extremities: non-tender Edema: trace edema Neurologic: alert, oriented x 3 Skin: normal pigmentation Assessment/Plan Assessment/Plan: (1) Flank pain (2) ESRD on hemodialysis Patient to be continued on [place]. D/w Dr. Cifuentes and he concurred. Evans Gordon Apr 16, 2020 08:36
--- NOTE | 2020-04-16 09:37 | General Progress Note ---
Subjective ROS Limited/Unobtainable: Yes Allergies: Coded Allergies: No Known Allergies (Unverified , 05/24/13) Objective Last 24 Hour Vital Signs Date Time Temp Pulse Resp B/P (MAP) Pulse Ox O2 Delivery O2 Flow Rate FiO2 04/16/20 09:00 Room Air 04/16/20 08:25 96/50 04/16/20 08:00 97.9 69 19 96/50 (65) 97 04/16/20 05:08 98.6 75 18 103/58 (73) 96 04/16/20 03:52 98.9 80 18 96/50 (65) 98 04/15/20 23:45 98.6 73 18 115/58 (77) 96 04/15/20 20:54 Room Air 04/15/20 20:00 98.0 77 18 115/64 (81) 98 04/15/20 16:00 97.2 72 18 99/51 (67) 95 04/15/20 12:00 97.8 72 18 105/52 (69) 97 Intake and Output 04/15/20 04/16/20 19:00 07:00 Intake Total 600 ml 240 ml Output Total 0 ml Balance 600 ml 240 ml Intake Oral 480 ml 240 ml IV Total 120 ml Estimated Blood Loss 0 ml Laboratory Tests 04/15/20 15:00: White Blood Count 6.0, Red Blood Count 2.71L, Hemoglobin 8.1L, Hematocrit 25.0L, Mean Corpuscular Volume 92, Mean Corpuscular Hemoglobin 30.0, Mean Corpuscular Hemoglobin Concent 32.5, Red Cell Distribution Width 13.4, Platelet Count 141L, Mean Platelet Volume 7.2, Neutrophils (%) (Auto) 64.5, Lymphocytes (%) (Auto) 22.9, Monocytes (%) (Auto) 7.8, Eosinophils (%) (Auto) 4.1H, Basophils (%) (Auto) 0.8, Sodium Level 136, Potassium Level 4.0, Chloride Level 96L, Carbon Dioxide Level 30, Anion Gap 10, Blood Urea Nitrogen 50H, Creatinine 8.3H, Estimat Glomerular Filtration Rate 5.8, Glucose Level 182H, Hemoglobin A1c 6.8H, Uric Acid 5.0, Calcium Level 8.2L, Phosphorus Level 5.5H, Magnesium Level 2.7H, Iron Level 55, Total Iron Binding Capacity 144L, Percent Iron Saturation 38, Unsaturated Iron Binding 89L, Ferritin 780H, Total Bilirubin 0.3, Gamma Glutamyl Transpeptidase 7, Aspartate Amino Transf (AST/SGOT) 12L, Alanine Aminotransferase (ALT/SGPT) < 6L, Alkaline Phosphatase 101, C-Reactive Protein, Quantitative 1.5H, Pro-B-Type Natriuretic Peptide 7971H, Total Protein 6.1L, Albumin 2.9L, Globulin 3.2, Albumin/Globulin Ratio 0.9L, Triglycerides Level 204H, Cholesterol Level 192, LDL Cholesterol 113H, HDL Cholesterol 39L, Cholesterol/HDL Ratio 4.9H, Amylase Level 56, Lipase 202, Carcinoembryonic Antigen 5.6H, CA 19-9 Antigen [Pending], Vitamin B12 Level 692, Thyroid Stimulating Hormone (TSH) 1.125, Hepatitis B Surface Antigen Negative Height (Feet): 5 Height (Inches): 5.00 Weight (Pounds): 154 General Appearance: no apparent distress EENT: normal ENT inspection Neck: supple Cardiovascular: normal rate Respiratory/Chest: decreased breath sounds Abdomen: normal bowel sounds, non tender, soft Extremities: non-tender Assessment/Plan Problem List: (1) CVA (cerebrovascular accident) ICD Codes: I63.9 - CVA (cerebrovascular accident) SNOMED: 886407424 (2) ESRD (end stage renal disease) on dialysis ICD Codes: N18.6 - End stage renal disease; Z99.2 - Dependence on renal dialysis SNOMED: 870314017, 605343947 (3) Anemia ICD Codes: D64.9 - Anemia, unspecified SNOMED: 477300021, 168094257 Qualifiers: Qualified Codes: N18.6 - End stage renal disease; D63.1 - Anemia in chronic kidney disease; Z99.2 - Dependence on renal dialysis (4) Hypertension ICD Codes: I10 - Hypertension SNOMED: 96692993 Assessment/Plan: s/p EGD: SUMMARY OF FINDINGS: 1. Two gastric ulcers. 2. Gastritis. 3. Duodenitis. RECOMMENDATION: Follow biopsy results and treat accordingly. Treat for H pylori if it is positive. Meanwhile, the patient to be on PPI daily. She will need a repeat endoscopy in 8 weeks for followup. cbc in am HD per nephrology ; Petr Chapa MD Apr 16, 2020 09:37
--- NOTE | 2020-04-16 10:45 | Nephrology Progress Note ---
Assessment/Plan Problem List: (1) ESRD (end stage renal disease) on dialysis (2) Flank pain (3) Anemia (4) CVA (cerebrovascular accident) Assessment End-stage renal disease, on hemodialysis Tuesday. Missed her last dialysis session. History of anemia of chronic kidney disease History of hydronephrosis Admitted with flank pain Covid 19 ruled out by lab testing first time History of CVA Plan April 16: Labs of yesterday reviewed. GI results noted. Patient due for dialysis today. Patient clinically stable. Decrease lisinopril dose to 5 mg a day April 15: Today's labs pending. Patient went for endoscopy today. Discussed with RN. Will order dialysis for tomorrow. Continue per consultants. Previously: Check kidney ultrasound for hydronephrosis and bladder distention, results noted Urine analysis and culture Hemodialysis ordered for today Continue to monitor renal parameters Keep the blood pressure blood sugar in check Adjust blood pressure medication dose Continue per ID advice Subjective ROS Limited/Unobtainable: No Constitutional: Reports: weakness Objective Objective Last 24 Hour Vital Signs Date Time Temp Pulse Resp B/P (MAP) Pulse Ox O2 Delivery O2 Flow Rate FiO2 04/16/20 09:00 Room Air 04/16/20 08:25 96/50 04/16/20 08:00 97.9 69 19 96/50 (65) 97 04/16/20 05:08 98.6 75 18 103/58 (73) 96 04/16/20 03:52 98.9 80 18 96/50 (65) 98 04/15/20 23:45 98.6 73 18 115/58 (77) 96 04/15/20 20:54 Room Air 04/15/20 20:00 98.0 77 18 115/64 (81) 98 04/15/20 16:00 97.2 72 18 99/51 (67) 95 04/15/20 12:00 97.8 72 18 105/52 (69) 97 Intake and Output 04/15/20 04/16/20 19:00 07:00 Intake Total 600 ml 240 ml Output Total 0 ml Balance 600 ml 240 ml Intake Oral 480 ml 240 ml IV Total 120 ml Estimated Blood Loss 0 ml Laboratory Tests 04/15/20 15:00: White Blood Count 6.0, Red Blood Count 2.71L, Hemoglobin 8.1L, Hematocrit 25.0L, Mean Corpuscular Volume 92, Mean Corpuscular Hemoglobin 30.0, Mean Corpuscular Hemoglobin Concent 32.5, Red Cell Distribution Width 13.4, Platelet Count 141L, Mean Platelet Volume 7.2, Neutrophils (%) (Auto) 64.5, Lymphocytes (%) (Auto) 22.9, Monocytes (%) (Auto) 7.8, Eosinophils (%) (Auto) 4.1H, Basophils (%) (Auto) 0.8, Sodium Level 136, Potassium Level 4.0, Chloride Level 96L, Carbon Dioxide Level 30, Anion Gap 10, Blood Urea Nitrogen 50H, Creatinine 8.3H, Estimat Glomerular Filtration Rate 5.8, Glucose Level 182H, Hemoglobin A1c 6.8H, Uric Acid 5.0, Calcium Level 8.2L, Phosphorus Level 5.5H, Magnesium Level 2.7H, Iron Level 55, Total Iron Binding Capacity 144L, Percent Iron Saturation 38, Unsaturated Iron Binding 89L, Ferritin 780H, Total Bilirubin 0.3, Gamma Glutamyl Transpeptidase 7, Aspartate Amino Transf (AST/SGOT) 12L, Alanine Aminotransferase (ALT/SGPT) < 6L, Alkaline Phosphatase 101, C-Reactive Protein, Quantitative 1.5H, Pro-B-Type Natriuretic Peptide 7971H, Total Protein 6.1L, Albumin 2.9L, Globulin 3.2, Albumin/Globulin Ratio 0.9L, Triglycerides Level 204H, Cholesterol Level 192, LDL Cholesterol 113H, HDL Cholesterol 39L, C holesterol/HDL Ratio 4.9H, Amylase Level 56, Lipase 202, Carcinoembryonic Antigen 5.6H, CA 19-9 Antigen [Pending], Vitamin B12 Level 692, Thyroid Stimulating Hormone (TSH) 1.125, Hepatitis B Surface Antigen Negative Height (Feet): 5 Height (Inches): 5.00 Weight (Pounds): 154 General Appearance: no apparent distress Cardiovascular: normal rate Respiratory/Chest: decreased breath sounds Abdomen: soft Objective No change Supa Gomes MD Apr 16, 2020 10:45
--- NOTE | 2020-04-16 10:57 | General Progress Note ---
Subjective Allergies: Coded Allergies: No Known Allergies (Unverified , 05/24/13) Objective Last 24 Hour Vital Signs Date Time Temp Pulse Resp B/P (MAP) Pulse Ox O2 Delivery O2 Flow Rate FiO2 04/16/20 09:00 Room Air 04/16/20 08:25 96/50 04/16/20 08:00 97.9 69 19 96/50 (65) 97 04/16/20 05:08 98.6 75 18 103/58 (73) 96 04/16/20 03:52 98.9 80 18 96/50 (65) 98 04/15/20 23:45 98.6 73 18 115/58 (77) 96 04/15/20 20:54 Room Air 04/15/20 20:00 98.0 77 18 115/64 (81) 98 04/15/20 16:00 97.2 72 18 99/51 (67) 95 04/15/20 12:00 97.8 72 18 105/52 (69) 97 Intake and Output 04/15/20 04/16/20 19:00 07:00 Intake Total 600 ml 240 ml Output Total 0 ml Balance 600 ml 240 ml Intake Oral 480 ml 240 ml IV Total 120 ml Estimated Blood Loss 0 ml Laboratory Tests 04/15/20 15:00: White Blood Count 6.0, Red Blood Count 2.71L, Hemoglobin 8.1L, Hematocrit 25.0L, Mean Corpuscular Volume 92, Mean Corpuscular Hemoglobin 30.0, Mean Corpuscular Hemoglobin Concent 32.5, Red Cell Distribution Width 13.4, Platelet Count 141L, Mean Platelet Volume 7.2, Neutrophils (%) (Auto) 64.5, Lymphocytes (%) (Auto) 22.9, Monocytes (%) (Auto) 7.8, Eosinophils (%) (Auto) 4.1H, Basophils (%) (Auto) 0.8, Sodium Level 136, Potassium Level 4.0, Chloride Level 96L, Carbon Dioxide Level 30, Anion Gap 10, Blood Urea Nitrogen 50H, Creatinine 8.3H, Estimat Glomerular Filtration Rate 5.8, Glucose Level 182H, Hemoglobin A1c 6.8H, Uric Acid 5.0, Calcium Level 8.2L, Phosphorus Level 5.5H, Magnesium Level 2.7H, Iron Level 55, Total Iron Binding Capacity 144L, Percent Iron Saturation 38, Unsaturated Iron Binding 89L, Ferritin 780H, Total Bilirubin 0.3, Gamma Glutamyl Transpeptidase 7, Aspartate Amino Transf (AST/SGOT) 12L, Alanine Aminotrans ferase (ALT/SGPT) < 6L, Alkaline Phosphatase 101, C-Reactive Protein, Quantitative 1.5H, Pro-B-Type Natriuretic Peptide 7971H, Total Protein 6.1L, Albumin 2.9L, Globulin 3.2, Albumin/Globulin Ratio 0.9L, Triglycerides Level 204H, Cholesterol Level 192, LDL Cholesterol 113H, HDL Cholesterol 39L, Cholesterol/HDL Ratio 4.9H, Amylase Level 56, Lipase 202, Carcinoembryonic Antigen 5.6H, CA 19-9 Antigen [Pending], Vitamin B12 Level 692, Thyroid Stimulating Hormone (TSH) 1.125, Hepatitis B Surface Antigen Negative Height (Feet): 5 Height (Inches): 5.00 Weight (Pounds): 154 Assessment/Plan Assessment/Plan: S: I am ok O: seems comfortable Exam: AT/NC, chest: clear, Heart: Regular, ABD: soft, MS: Imbalance, atrophied muscles, no asymmetric deficeit, Neuro: awake alert, Psych: normal Med: reviewed and reconciled Labs: dated Apr 15 reviewed Medical Decision Making Diagnostic Impression: Primary Impression: Flank pain Additional Impressions: Missed dialysis ESRD (end stage renal disease) on dialysis Anemia Qualified Codes: N18.6 - End stage renal disease; D63.1 - Anemia in chronic kidney disease; Z99.2 - Dependence on renal dialysis COVID-19 ruled out by laboratory testing DM Hyperlipidemia Abn imaging finding in Abd CT Imbalance, Deconditioning PUD Plan: GI - procedure NPO for now hold LA-insulin check iron panel DC Dilaudid PT/OT consulted Abnormal CEA level. further followup as an outpatient. Cristian White MD Apr 16, 2020 10:57
[2020-04-16 12:00] VITALS: BP 100/66
[2020-04-16] MEDS: Lisinopril 2.5mg tab ORAL SCH (12:00)
--- NOTE | 2020-04-16 15:00 | Infectious Diseases Prog Note ---
Assessment/Plan Assessment: COVID19 neg (04/13 rapid COVID PCR neg) -CXR: Cardiomegaly and mild pulmonary vascular congestion. Afebrile No leukocytosis Abd pain, L flank pain Dilated CBD- ?etiology -MRCP: Dilated common bile duct, measuring up to 17 mm in diameter. No definite choledocholithiasis or downstream obstructive lesion demonstrated. Significance uncertain. Occult ampullary obstructive lesion possible. Dilated pancreatic duct, measuring up to 11 mm in diameter, without definite downstream obstructive lesion. Occult ampullary obstructive lesion likewise also possible. Unusual finding of filling defects within the pancreatic duct, most likely ref lects gas bubbles demonstrated on prior CT scan. Etiology of this is uncertain. Atrophic kidneys, consistent with medical renal disease, also described on prior imaging studies. Thickened bladder wall, may indicate cystitis -CT abd/p wo: Bladder wall thickening out of proportion to level of distention. Findings are suspicious for cystitis. Recommend correlation with urinalysis. Nonspecific dilatation of the distal main pancreatic duct which also contains a small amount of air. Query recent ERCP. In the absence of such history, an underlying obstructing lesion seen at the level of the ampulla should be excluded. -Renal US: Small echogenic kidneys bilaterally, consistent with known history of chronic medical renal disease. Bilateral nonobstructive intrarenal calculi, also demonstrated on previous day's CT scan. Negative for hydronephrosis. Nonspecific bladder wall thickening. Diarrhea -stool cdiff and cx p Dm2 [facility] HLD Sp hysterectomy nephrolithiasis CVA 2011 HTN ESRD on HD via L AVG Plan: -Continue to monitor off abx -f/u cx -Monitor CBC/CMP, temperatures -f/u ua/ w reflex, Cdiff, stool cx -GI f.u Thank you for this consultation. Will continue to follow along with you. Discussed with RN. Subjective Allergies: Coded Allergies: No Known Allergies (Unverified , 05/24/13) afebrile no leukocytosis Objective Last 24 Hour Vital Signs Date Time Temp Pulse Resp B/P (MAP) Pulse Ox O2 Delivery O2 Flow Rate FiO2 04/16/20 12:00 97.5 66 18 100/66 (77) 99 04/16/20 12:00 100/66 04/16/20 09:00 Room Air 04/16/20 08:25 96/50 04/16/20 08:00 97.9 69 19 96/50 (65) 97 04/16/20 05:08 98.6 75 18 103/58 (73) 96 04/16/20 03:52 98.9 80 18 96/50 (65) 98 04/15/20 23:45 98.6 73 18 115/58 (77) 96 04/15/20 20:54 Room Air 04/15/20 20:00 98.0 77 18 115/64 (81) 98 04/15/20 16:00 97.2 72 18 99/51 (67) 95 Height (Feet): 5 Height (Inches): 5.00 Weight (Pounds): 154 HEENT: Normocephalic and atraumatic. Sclerae anicteric. NECK: Supple. No obvious lymphadenopathy. CARDIOVASCULAR: Regular rate and rhythm. Plus S1 and S2. LUNGS: Decreased breath sounds bilaterally based on the supine exam. ABDOMEN: Soft, nontender. No rebound. No guarding. No peritoneal sign. EXTREMITIES: No cyanosis, no clubbing, no edema. Microbiology Date/Time Source Procedure Growth Status 04/13/20 22:30 Nasopharynx SARS-CoV-2 RdRp Gene Assay - Final Complete Laboratory Tests Test 04/15/20 15:00 White Blood Count 6.0 K/UL (4.8-10.8) Red Blood Count 2.71 M/UL (4.20-5.40) L Hemoglobin 8.1 G/DL (12.0-16.0) L Hematocrit 25.0 % (37.0-47.0) L Mean Corpuscular Volume 92 FL (80-99) Mean Corpuscular Hemoglobin 30.0 PG (27.0-31.0) Mean Corpuscular Hemoglobin Concent 32.5 G/DL (32.0-36.0) Red Cell Distribution Width 13.4 % (11.6-14.8) Platelet Count 141 K/UL (150-450) L Mean Platelet Volume 7.2 FL (6.5-10.1) Neutrophils (%) (Auto) 64.5 % (45.0-75.0) Lymphocytes (%) (Auto) 22.9 % (20.0-45.0) Monocytes (%) (Auto) 7.8 % (1.0-10.0) Eosinophils (%) (Auto) 4.1 % (0.0-3.0) H Basophils (%) (Auto) 0.8 % (0.0-2.0) Sodium Level 136 MMOL/L (136-145) Potassium Level 4.0 MMOL/L (3.5-5.1) Chloride Level 96 MMOL/L (98-107) L Carbon Dioxide Level 30 MMOL/L (21-32) Anion Gap 10 mmol/L (5-15) Blood Urea Nitrogen 50 mg/dL (7-18) H Creatinine 8.3 MG/DL (0.55-1.30) H Estimat Glomerular Filtration Rate 5.8 mL/min (>60) Glucose Level 182 MG/DL (74-106) H Hemoglobin A1c 6.8 % (4.3-6.0) H Uric Acid 5.0 MG/DL (2.6-7.2) Calcium Level 8.2 MG/DL (8.5-10.1) L Phosphorus Level 5.5 MG/DL (2.5-4.9) H Magnesium Level 2.7 MG/DL (1.8-2.4) H Iron Level 55 ug/dL (50-175) Total Iron Binding Capacity 144 ug/dL (250-450) L Percent Iron Saturation 38 % (15-50) Unsaturated Iron Binding 89 ug/dL (112-346) L Ferritin 780 NG/ML (8-388) H Total Bilirubin 0.3 MG/DL (0.2-1.0) Gamma Glutamyl Transpeptidase 7 U/L (5-85) Aspartate Amino Transf (AST/SGOT) 12 U/L (15-37) L Alanine Aminotransferase (ALT/SGPT) < 6 U/L (12-78) L Alkaline Phosphatase 101 U/L (46-116) C-Reactive Protein, Quantitative 1.5 mg/dL (0.00-0.90) H Pro-B-Type Natriuretic Peptide 7971 pg/mL (0-125) H Total Protein 6.1 G/DL (6.4-8.2) L Albumin 2.9 G/DL (3.4-5.0) L Globulin 3.2 g/dL Albumin/Globulin Ratio 0.9 (1.0-2.7) L Triglycerides Level 204 MG/DL (30-150) H Cholesterol Level 192 MG/DL (< 200) LDL Cholesterol 113 mg/dL (<100) H HDL Cholesterol 39 MG/DL (40-60) L Cholesterol/HDL Ratio 4.9 (3.3-4.4) H Amylase Level 56 U/L (25-115) Lipase 202 U/L (73-393) Carcinoembryonic Antigen 5.6 ng/mL (0.0-4.7) H CA 19-9 Antigen Pending Vitamin B12 Level 692 PG/ML (193-986) Thyroid Stimulating Hormone (TSH) 1.125 uiU/mL (0.358-3.740) Hepatitis B Surface Antigen Negative (NEGATIVE) Current Medications Medications (Trade) Dose Ordered Sig/Gini Route PRN Reason Start Time Stop Time Status Last Admin Dose Admin Acetaminophen/ Hydrocodone Bitart ([place] 5/325) 1 tab Q6H PRN ORAL For Pain 04/13/20 23:45 04/20/20 23:44 Aspirin (Ecotrin) 81 mg DAILY ORAL 04/14/20 09:00 05/29/20 08:59 04/16/20 08:24 Atorvastatin Calcium (Lipitor) 20 mg BEDTIME ORAL 04/14/20 21:00 07/13/20 20:59 04/15/20 20:11 Dextrose (Dextrose 50%) 25 ml Q30M PRN IV Hypoglycemia 04/13/20 23:45 07/12/20 23:44 Dextrose (Dextrose 50%) 50 ml Q30M PRN IV Hypoglycemia 04/13/20 23:45 07/12/20 23:44 Diphenhydramine HCl (Benadryl) 25 mg Q6H PRN IVP Itching 04/13/20 23:45 05/13/20 23:44 Docusate Sodium (Colace) 100 mg THREE TIMES A DAY ORAL 04/14/20 13:00 05/14/20 12:59 04/16/20 12:30 Epoetin Jairo (Epoetin Jairo(ESRD on dialysis)) 10,000 unit TUE-TUE-TUE SUBQ 04/14/20 21:00 07/13/20 20:59 04/14/20 21:05 Heparin Sodium (Porcine) (Heparin 5000 units/ml) 5,000 units EVERY 12 HOURS SUBQ 04/14/20 09:00 05/29/20 00:29 04/15/20 09:57 Insulin Aspart (NovoLOG) BEFORE MEALS AND HS SUBQ 04/14/20 06:30 07/13/20 06:29 04/16/20 12:32 Levetiracetam (Keppra) 500 mg Q12HR ORAL 04/14/20 09:00 05/14/20 00:29 04/16/20 08:25 Lisinopril (ZestriL) 5 mg DAILY ORAL 04/16/20 12:00 05/16/20 11:59 Metoclopramide HCl (Reglan) 10 mg Q6H PRN IVP Nausea & Vomiting 04/13/20 23:45 05/13/20 23:44 Ondansetron HCl (Zofran) 4 mg Q6H PRN IVP Nausea & Vomiting refractory 04/13/20 23:45 05/13/20 23:44 Pantoprazole (Protonix) 40 mg EVERY 12 HOURS ORAL 04/14/20 09:00 05/14/20 00:29 04/16/20 08:24 Sevelamer Carbonate (Renvela) 800 mg THREE TIMES A DAY ORAL 04/14/20 09:00 07/13/20 08:59 04/16/20 12:30 Sucralfate (Carafate) 1 gm FOUR TIMES A DAY ORAL 04/15/20 09:00 07/14/20 08:59 04/16/20 12:30 Na Ndiaye M.D. Apr 16, 2020 15:00
[2020-04-16 16:00] VITALS: BP 111/51
[2020-04-16 20:00] VITALS: BP 105/57
[2020-04-16] MEDS: Atorvastatin 20mg tab ORAL SCH (21:02)
[2020-04-16] MEDS: Epoetin Alfa-EPBX(ESRD on dialysis)10,000 unit/ml vial SUBQ SCH (21:06)
[2020-04-16] MEDS ORDERED: Bisacodyl EC 5mg tab ORAL PRN (22:30)
[2020-04-16] MEDS ORDERED: Sennosides 8.6mg tab ORAL PRN ×2 (22:30→23:00)
[2020-04-17] VITALS (9 sets, daily range): BP systolic 97–118; BP diastolic 48–69
[2020-04-17] MEDS: NovoLOG Insulin Flexpen SUBQ SCH ×4 (06:22→21:00)
[2020-04-17 06:37] LABS: HEMATOCRIT 21.9 % (37.0-47.0); HEMOGLOBIN 7.3 G/DL (12.0-16.0); MEAN CORPUSCULAR VOLUME 91 FL (80-99); PLATELET COUNT 101 K/UL (150-450); RED CELL DISTRIBUTION WIDTH 13.5 % (11.6-14.8); WHITE BLOOD COUNT 5.7 K/UL (4.8-10.8)
[2020-04-17 07:01] LABS: ALBUMIN 2.9 G/DL (3.4-5.0); ALBUMIN/GLOBULIN RATIO 0.9 (1.0-2.7); BILIRUBIN,TOTAL 0.3 MG/DL (0.2-1.0); CALCIUM 8.2 MG/DL (8.5-10.1); CREATININE 6.1 MG/DL (0.55-1.30); POTASSIUM 4.4 MMOL/L (3.5-5.1)
[2020-04-17] MEDS: Docusate 100mg cap ORAL SCH ×3 (08:41→17:06)
[2020-04-17] MEDS: Renvela 800mg Pkt ORAL SCH ×3 (08:41→17:06)
[2020-04-17] MEDS: Aspirin EC 81mg tab ORAL SCH (08:42)
[2020-04-17] MEDS: Lisinopril 2.5mg tab ORAL SCH (08:42)
[2020-04-17] MEDS: Heparin 5000 units/ml inj SUBQ SCH (08:43)
[2020-04-17] MEDS: Sucralfate 1gm tab ORAL SCH ×4 (08:44→21:15)
--- NOTE | 2020-04-17 09:08 | General Progress Note ---
Subjective Date patient seen: Apr 17, 2020 Time patient seen: 08:00 - am Constitutional: Reports: no symptoms HEENT: Reports: no symptoms Cardiovascular: Reports: no symptoms Respiratory: Reports: no symptoms Gastrointestinal/Abdominal: Reports: no symptoms Genitourinary: Reports: no symptoms Neurologic/Psychiatric: Reports: no symptoms Endocrine: Reports: no symptoms Hematologic/Lymphatic: Reports: no symptoms Allergies: Coded Allergies: No Known Allergies (Unverified , 05/24/13) Subjective This is a 64 y/o female seen on the med/surg floor of [facility] [place]. Patient showing no signs of pain or distress and denies pain at this time. Objective Last 24 Hour Vital Signs Date Time Temp Pulse Resp B/P (MAP) Pulse Ox O2 Delivery O2 Flow Rate FiO2 04/17/20 08:42 118/69 04/17/20 08:00 98.2 95 20 118/69 (85) 97 04/17/20 04:00 98.4 83 18 98/51 (67) 97 04/17/20 00:00 97.9 79 20 97/50 (66) 98 04/16/20 21:54 Room Air 04/16/20 20:00 98.1 83 20 105/57 (73) 98 04/16/20 16:00 97.4 65 19 111/51 (71) 98 04/16/20 12:00 97.5 66 18 100/66 (77) 99 04/16/20 12:00 100/66 Intake and Output 04/16/20 04/17/20 19:00 07:00 Intake Total 240 ml Output Total 2000 ml Balance -2000 ml 240 ml Intake Oral 240 ml Hemodialysis UF 2000 ml Laboratory Tests 04/16/20 11:24: POC Whole Blood Glucose 198H 04/16/20 16:51: POC Whole Blood Glucose 140H 04/17/20 05:34: White Blood Count 5.7, Red Blood Count 2.40L, Hemoglobin 7.3L, Hematocrit 21.9L, Mean Corpuscular Volume 91, Mean Corpuscular Hemoglobin 30.3, Mean Corpuscular Hemoglobin Concent 33.2, Red Cell Distribution Width 13.5, Platelet Count 101L, Mean Platelet Volume 7.6, Neutrophils (%) (Auto) , Lymphocytes (%) (Auto) , Monocytes (%) (Auto) , Eosinophils (%) (Auto) , Basophils (%) (Auto) , Neutroph ils % (Manual) [Pending], Lymphocytes % (Manual) [Pending], Platelet Estimate [Pending], Platelet Morphology [Pending], Sodium Level 139, Potassium Level 4.4, Chloride Level 101, Carbon Dioxide Level 32, Anion Gap 6, Blood Urea Nitrogen 37H, Creatinine 6.1H, Estimat Glomerular Filtration Rate 8.4, Glucose Level 146H , Calcium Level 8.2L, Phosphorus Level 3.3, Total Bilirubin 0.3, Aspartate Amino Transf (AST/SGOT) 13L, Alanine Aminotransferase (ALT/SGPT) 10L, Alkaline Phosphatase 86, Total Protein 6.2L, Albumin 2.9L, Globulin 3.3, Albumin/Globulin Ratio 0.9L Height (Feet): 5 Height (Inches): 5.00 Weight (Pounds): 154 Objective General Appearance: no apparent distress, alert EENT: PERRL/EOMI, normal ENT inspection Neck: non-tender, normal alignment Cardiovascular: normal rate, regular rhythm Abdomen: non tender, soft Extremities: non-tender Edema: trace edema Neurologic: alert, oriented x 3 Skin: normal pigmentation Assessment/Plan Assessment/Plan: (1) Flank pain (2) ESRD on hemodialysis Patient to be continued on Institute. D/w Dr. Cifuentes and he concurred. Evans Gordon Apr 17, 2020 09:08
--- NOTE | 2020-04-17 10:15 | Nephrology Progress Note ---
Assessment/Plan Problem List: (1) ESRD (end stage renal disease) on dialysis (2) Flank pain (3) Anemia (4) CVA (cerebrovascular accident) Assessment End-stage renal disease, on hemodialysis Tuesday. Missed her last dialysis session. History of anemia of chronic kidney disease History of hydronephrosis Admitted with flank pain Covid 19 ruled out by lab testing first time History of CVA Plan April 17: Dialyzed yesterday. Clinically stable. Labs reviewed. Hemoglobin low 7.3. Will transfuse 1 unit of packed RBCs today. Next dialysis tomorrow or on Tuesday. April 16: Labs of yesterday reviewed. GI results noted. Patient due for dialysis today. Patient clinically stable. Decrease lisinopril dose to 5 mg a day April 15: Today's labs pending. Patient went for endoscopy today. Discussed with RN. Will order dialysis for tomorrow. Continue per consultants. Previously: Check kidney ultrasound for hydronephrosis and bladder distention, results noted Urine analysis and culture Hemodialysis ordered for today Continue to monitor renal parameters Keep the blood pressure blood sugar in check Adjust blood pressure medication dose Continue per ID advice Subjective ROS Limited/Unobtainable: No Constitutional: Reports: malaise Objective Objective Last 24 Hour Vital Signs Date Time Temp Pulse Resp B/P (MAP) Pulse Ox O2 Delivery O2 Flow Rate FiO2 04/17/20 08:42 118/69 04/17/20 08:40 Room Air 04/17/20 08:00 98.2 95 20 118/69 (85) 97 04/17/20 04:00 98.4 83 18 98/51 (67) 97 04/17/20 00:00 97.9 79 20 97/50 (66) 98 04/16/20 21:54 Room Air 04/16/20 20:00 98.1 83 20 105/57 (73) 98 04/16/20 16:00 97.4 65 19 111/51 (71) 98 04/16/20 12:00 97.5 66 18 100/66 (77) 99 04/16/20 12:00 100/66 Intake and Output 04/16/20 04/17/20 19:00 07:00 Intake Total 240 ml Output Total 2000 ml Balance -2000 ml 240 ml Intake Oral 240 ml Hemodialysis UF 2000 ml Current Medications Medications (Trade) Dose Ordered Sig/Gini Route PRN Reason Start Time Stop Time Status Last Admin Dose Admin Acetaminophen/ Hydrocodone Bitart ([place] 5/325) 1 tab Q6H PRN ORAL For Pain 04/13/20 23:45 04/20/20 23:44 Aspirin (Ecotrin) 81 mg DAILY ORAL 04/14/20 09:00 05/29/20 08:59 04/17/20 08:42 Atorvastatin Calcium (Lipitor) 20 mg BEDTIME ORAL 04/14/20 21:00 07/13/20 20:59 04/16/20 21:02 Bisacodyl (Dulcolax) 5 mg DAILYPRN PRN ORAL Constipation 04/16/20 22:30 07/15/20 22:29 Dextrose (Dextrose 50%) 25 ml Q30M PRN IV Hypoglycemia 04/13/20 23:45 07/12/20 23:44 Dextrose (Dextrose 50%) 50 ml Q30M PRN IV Hypoglycemia 04/13/20 23:45 07/12/20 23:44 Diphenhydramine HCl (Benadryl) 25 mg Q6H PRN IVP Itching 04/13/20 23:45 05/13/20 23:44 Docusate Sodium (Colace) 100 mg THREE TIMES A DAY ORAL 04/14/20 13:00 05/14/20 12:59 04/17/20 08:41 Epoetin Jairo (Epoetin Jairo(ESRD on dialysis)) 10,000 unit TUE-TUE-TUE SUBQ 04/14/20 21:00 07/13/20 20:59 04/16/20 21:06 Heparin Sodium (Porcine) (Heparin 5000 units/ml) 5,000 units EVERY 12 HOURS SUBQ 04/14/20 09:00 05/29/20 00:29 04/15/20 09:57 Insulin Aspart (NovoLOG) BEFORE MEALS AND HS SUBQ 04/14/20 06:30 07/13/20 06:29 04/17/20 06:22 Levetiracetam (Keppra) 500 mg Q12HR ORAL 04/14/20 09:00 05/14/20 00:29 04/17/20 08:42 Lisinopril (ZestriL) 5 mg DAILY ORAL 04/16/20 12:00 05/16/20 11:59 04/17/20 08:42 Metoclopramide HCl (Reglan) 10 mg Q6H PRN IVP Nausea & Vomiting 04/13/20 23:45 05/13/20 23:44 Ondansetron HCl (Zofran) 4 mg Q6H PRN IVP Nausea & Vomiting refractory 04/13/20 23:45 05/13/20 23:44 Pantoprazole (Protonix) 40 mg EVERY 12 HOURS ORAL 04/14/20 09:00 05/14/20 00:29 04/17/20 08:41 Sennosides (Senokot) 8.6 mg DAILY PRN ORAL Constipation 04/16/20 23:00 05/16/20 22:29 Sevelamer Carbonate (Renvela) 800 mg THREE TIMES A DAY ORAL 04/14/20 09:00 07/13/20 08:59 04/17/20 08:41 Sucralfate (Carafate) 1 gm FOUR TIMES A DAY ORAL 04/15/20 09:00 07/14/20 08:59 04/17/20 08:44 Laboratory Tests 04/16/20 11:24: POC Whole Blood Glucose 198H 04/16/20 16:51: POC Whole Blood Glucose 140H 04/17/20 05:34: White Blood Count 5.7, Red Blood Count 2.40L, Hemoglobin 7.3L, Hematocrit 21.9L, Mean Corpuscular Volume 91, Mean Corpuscular Hemoglobin 30.3, Mean Corpuscular Hemoglobin Concent 33.2, Red Cell Distribution Width 13.5, Platelet Count 101L, Mean Platelet Volume 7.6, Neutrophils (%) (Auto) , Lymphocytes (%) (Auto) , Monocytes (%) (Auto) , Eosinophils (%) (Auto) , Basophils (%) (Auto) , Neutrophils % (Manual) [Pending], Lymphocytes % (Manual) [Pending], Platelet Estimate [Pending], Platelet Morphology [Pending], Sodium Level 139, Potassium Level 4.4, Chloride Level 101, Carbon Dioxide Level 32, Anion Gap 6, Blood Urea Nitrogen 37H, Creatinine 6.1H, Estimat Glomerular Filtration Rate 8.4, Glucose Level 146H, Calcium Level 8.2L, Phosphorus Level 3.3, Total Bilirubin 0.3, Aspartate Amino Transf (AST/SGOT) 13L, Alanine Aminotransferase (ALT/SGPT) 10L, Alkaline Phosphatase 86, Total Protein 6.2L, Albumin 2.9L, Globulin 3.3, Albumin/Globulin Ratio 0.9L Height (Feet): 5 Height (Inches): 5.00 Weight (Pounds): 154 General Appearance: no apparent distress Cardiovascular: tachycardia - Rate early 90s Respiratory/Chest: decreased breath sounds Abdomen: soft Objective No change Supa Gomes MD Apr 17, 2020 10:15
--- NOTE | 2020-04-17 13:51 | Infectious Diseases Prog Note ---
Assessment/Plan Assessment: COVID19 neg (04/13 rapid COVID PCR neg) -CXR: Cardiomegaly and mild pulmonary vascular congestion. Afebrile No leukocytosis Abd pain, L flank pain Dilated CBD- ?etiology -MRCP: Dilated common bile duct, measuring up to 17 mm in diameter. No definite choledocholithiasis or downstream obstructive lesion demonstrated. Significance uncertain. Occult ampullary obstructive lesion possible. Dilated pancreatic duct, measuring up to 11 mm in diameter, without definite downstream obstructive lesion. Occult ampullary obstructive lesion likewise also possible. Unusual finding of filling defects within the pancreatic duct, most likely ref lects gas bubbles demonstrated on prior CT scan. Etiology of this is uncertain. Atrophic kidneys, consistent with medical renal disease, also described on prior imaging studies. Thickened bladder wall, may indicate cystitis -CT abd/p wo: Bladder wall thickening out of proportion to level of distention. Findings are suspicious for cystitis. Recommend correlation with urinalysis. Nonspecific dilatation of the distal main pancreatic duct which also contains a small amount of air. Query recent ERCP. In the absence of such history, an underlying obstructing lesion seen at the level of the ampulla should be excluded. -Renal US: Small echogenic kidneys bilaterally, consistent with known history of chronic medical renal disease. Bilateral nonobstructive intrarenal calculi, also demonstrated on previous day's CT scan. Negative for hydronephrosis. Nonspecific bladder wall thickening. Diarrhea -stool cdiff and cx p Dm2 [facility] HLD Sp hysterectomy nephrolithiasis CVA 2011 HTN ESRD on HD via L AVG Plan: -Continue to monitor off abx -f/u cx -Monitor CBC/CMP, temperatures -f/u ua/ w reflex, Cdiff, stool cx -GI f.u Thank you for this consultation. Will continue to follow along with you. Discussed with RN. Subjective Allergies: Coded Allergies: No Known Allergies (Unverified , 05/24/13) afebrile no leukocytosis Objective Last 24 Hour Vital Signs Date Time Temp Pulse Resp B/P (MAP) Pulse Ox O2 Delivery O2 Flow Rate FiO2 04/17/20 12:15 97.4 67 18 104/58 (73) 99 04/17/20 08:42 118/69 04/17/20 08:40 Room Air 04/17/20 08:00 98.2 95 20 118/69 (85) 97 04/17/20 04:00 98.4 83 18 98/51 (67) 97 04/17/20 00:00 97.9 79 20 97/50 (66) 98 04/16/20 21:54 Room Air 04/16/20 20:00 98.1 83 20 105/57 (73) 98 04/16/20 16:00 97.4 65 19 111/51 (71) 98 Height (Feet): 5 Height (Inches): 5.00 Weight (Pounds): 154 HEENT: Normocephalic and atraumatic. Sclerae anicteric. NECK: Supple. No obvious lymphadenopathy. CARDIOVASCULAR: Regular rate and rhythm. Plus S1 and S2. LUNGS: Decreased breath sounds bilaterally based on the supine exam. ABDOMEN: Soft, nontender. No rebound. No guarding. No peritoneal sign. EXTREMITIES: No cyanosis, no clubbing, no edema. Laboratory Tests Test 04/16/20 16:51 04/17/20 05:34 POC Whole Blood Glucose 140 MG/DL (74-106) H White Blood Count 5.7 K/UL (4.8-10.8) Red Blood Count 2.40 M/UL (4.20-5.40) L Hemoglobin 7.3 G/DL (12.0-16.0) L Hematocrit 21.9 % (37.0-47.0) L Mean Corpuscular Volume 91 FL (80-99) Mean Corpuscular Hemoglobin 30.3 PG (27.0-31.0) Mean Corpuscular Hemoglobin Concent 33.2 G/DL (32.0-36.0) Red Cell Distribution Width 13.5 % (11.6-14.8) Platelet Count 101 K/UL (150-450) L Mean Platelet Volume 7.6 FL (6.5-10.1) Neutrophils (%) (Auto) % (45.0-75.0) Lymphocytes (%) (Auto) % (20.0-45.0) Monocytes (%) (Auto) % (1.0-10.0) Eosinophils (%) (Auto) % (0.0-3.0) Basophils (%) (Auto) % (0.0-2.0) Differential Total Cells Counted 100 Neutrophils % (Manual) 64 % (45-75) Lymphocytes % (Manual) 32 % (20-45) Monocytes % (Manual) 1 % (1-10) Eosinophils % (Manual) 3 % (0-3) Basophils % (Manual) 0 % (0-2) Band Neutrophils 0 % (0-8) Platelet Estimate Decreased L Platelet Morphology Normal Red Blood Cell Morphology Normal Sodium Level 139 MMOL/L (136-145) Potassium Level 4.4 MMOL/L (3.5-5.1) Chloride Level 101 MMOL/L (98-107) Carbon Dioxide Level 32 MMOL/L (21-32) Anion Gap 6 mmol/L (5-15) Blood Urea Nitrogen 37 mg/dL (7-18) H Creatinine 6.1 MG/DL (0.55-1.30) H Estimat Glomerular Filtration Rate 8.4 mL/min (>60) Glucose Level 146 MG/DL (74-106) H Calcium Level 8.2 MG/DL (8.5-10.1) L Phosphorus Level 3.3 MG/DL (2.5-4.9) Total Bilirubin 0.3 MG/DL (0.2-1.0) Aspartate Amino Transf (AST/SGOT) 13 U/L (15-37) L Alanine Aminotransferase (ALT/SGPT) 10 U/L (12-78) L Alkaline Phosphatase 86 U/L (46-116) Total Protein 6.2 G/DL (6.4-8.2) L Albumin 2.9 G/DL (3.4-5.0) L Globulin 3.3 g/dL Albumin/Globulin Ratio 0.9 (1.0-2.7) L Current Medications Medications (Trade) Dose Ordered Sig/Gini Route PRN Reason Start Time Stop Time Status Last Admin Dose Admin Acetaminophen/ Hydrocodone Bitart ([place] 5/325) 1 tab Q6H PRN ORAL For Pain 04/13/20 23:45 04/20/20 23:44 Aspirin (Ecotrin) 81 mg DAILY ORAL 04/14/20 09:00 05/29/20 08:59 04/17/20 08:42 Atorvastatin Calcium (Lipitor) 20 mg BEDTIME ORAL 04/14/20 21:00 07/13/20 20:59 04/16/20 21:02 Bisacodyl (Dulcolax) 5 mg DAILYPRN PRN ORAL Constipation 04/16/20 22:30 07/15/20 22:29 Dextrose (Dextrose 50%) 25 ml Q30M PRN IV Hypoglycemia 04/13/20 23:45 07/12/20 23:44 Dextrose (Dextrose 50%) 50 ml Q30M PRN IV Hypoglycemia 04/13/20 23:45 07/12/20 23:44 Diphenhydramine HCl (Benadryl) 25 mg Q6H PRN IVP Itching 04/13/20 23:45 05/13/20 23:44 Docusate Sodium (Colace) 100 mg THREE TIMES A DAY ORAL 04/14/20 13:00 05/14/20 12:59 04/17/20 12:09 Epoetin Jairo (Epoetin Jairo(ESRD on dialysis)) 10,000 unit TUE-TUE-TUE SUBQ 04/14/20 21:00 07/13/20 20:59 04/16/20 21:06 Heparin Sodium (Porcine) (Heparin 5000 units/ml) 5,000 units EVERY 12 HOURS SUBQ 04/14/20 09:00 05/29/20 00:29 04/15/20 09:57 Insulin Aspart (NovoLOG) BEFORE MEALS AND HS SUBQ 04/14/20 06:30 07/13/20 06:29 04/17/20 12:12 Levetiracetam (Keppra) 500 mg Q12HR ORAL 04/14/20 09:00 05/14/20 00:29 04/17/20 08:42 Lisinopril (ZestriL) 5 mg DAILY ORAL 04/16/20 12:00 05/16/20 11:59 04/17/20 08:42 Metoclopramide HCl (Reglan) 10 mg Q6H PRN IVP Nausea & Vomiting 04/13/20 23:45 05/13/20 23:44 Ondansetron HCl (Zofran) 4 mg Q6H PRN IVP Nausea & Vomiting refractory 04/13/20 23:45 05/13/20 23:44 Pantoprazole (Protonix) 40 mg EVERY 12 HOURS ORAL 04/14/20 09:00 05/14/20 00:29 04/17/20 08:41 Sennosides (Senokot) 8.6 mg DAILY PRN ORAL Constipation 04/16/20 23:00 05/16/20 22:29 Sevelamer Carbonate (Renvela) 800 mg THREE TIMES A DAY ORAL 04/14/20 09:00 07/13/20 08:59 04/17/20 12:09 Sucralfate (Carafate) 1 gm FOUR TIMES A DAY ORAL 04/15/20 09:00 07/14/20 08:59 04/17/20 12:09 Na Ndiaye M.D. Apr 17, 2020 13:51
--- NOTE | 2020-04-17 14:07 | General Progress Note ---
Subjective ROS Limited/Unobtainable: Yes Allergies: Coded Allergies: No Known Allergies (Unverified , 05/24/13) Objective Last 24 Hour Vital Signs Date Time Temp Pulse Resp B/P (MAP) Pulse Ox O2 Delivery O2 Flow Rate FiO2 04/17/20 12:15 97.4 67 18 104/58 (73) 99 04/17/20 08:42 118/69 04/17/20 08:40 Room Air 04/17/20 08:00 98.2 95 20 118/69 (85) 97 04/17/20 04:00 98.4 83 18 98/51 (67) 97 04/17/20 00:00 97.9 79 20 97/50 (66) 98 04/16/20 21:54 Room Air 04/16/20 20:00 98.1 83 20 105/57 (73) 98 04/16/20 16:00 97.4 65 19 111/51 (71) 98 Intake and Output 04/16/20 04/17/20 19:00 07:00 Intake Total 240 ml Output Total 2000 ml Balance -2000 ml 240 ml Intake Oral 240 ml Hemodialysis UF 2000 ml Laboratory Tests 04/16/20 16:51: POC Whole Blood Glucose 140H 04/17/20 05:34: White Blood Count 5.7, Red Blood Count 2.40L, Hemoglobin 7.3L, Hematocrit 21.9L, Mean Corpuscular Volume 91, Mean Corpuscular Hemoglobin 30.3, Mean Corpuscular Hemoglobin Concent 33.2, Red Cell Distribution Width 13.5, Platelet Count 101L, Mean Platelet Volume 7.6, Neutrophils (%) (Auto) , Lymphocytes (%) (Auto) , Monocytes (%) (Auto) , Eosinophils (%) (Auto) , Basophils (%) (Auto) , Differential Total Cells Counted 100, Neutrophils % (Manual) 64, Lymphocytes % (Manual) 32, Monocytes % (Manual) 1, Eosinophils % (Manual) 3, Basophils % (Manual) 0, Band Neutrophils 0, Platelet Estimate DecreasedL, Platelet Morphology Normal, Red Blood Cell Morphology Normal, Sodium Level 139, Potassium Level 4.4, Chloride Level 101, Carbon Dioxide Level 32, Anion Gap 6, Blood Urea Nitrogen 37H, Creatinine 6.1H, Estimat Glomerular Filtration Rate 8.4, Glucose Level 146H, Calcium Level 8.2L, Phosphorus Level 3.3, Total Bilirubin 0.3, Aspartate Amino Transf (AST/SGOT) 13L, Alanine Aminotransferase (ALT/SGPT) 10L, Alkaline Phosphatase 86, Total Protein 6.2L, Albumin 2.9L, Globulin 3.3, Albumin/Globulin Ratio 0.9L Height (Feet): 5 Height (Inches): 5.00 Weight (Pounds): 154 General Appearance: alert EENT: normal ENT inspection Neck: supple Cardiovascular: normal rate Respiratory/Chest: decreased breath sounds Abdomen: normal bowel sounds, non tender, soft Extremities: non-tender Assessment/Plan Problem List: (1) CVA (cerebrovascular accident) ICD Codes: I63.9 - CVA (cerebrovascular accident) SNOMED: 000604393 (2) ESRD (end stage renal disease) on dialysis ICD Codes: N18.6 - End stage renal disease; Z99.2 - Dependence on renal dialysis SNOMED: 688267432, 291330116 (3) Anemia ICD Codes: D64.9 - Anemia, unspecified SNOMED: 178802654, 632237818 Qualifiers: Qualified Codes: N18.6 - End stage renal disease; D63.1 - Anemia in chronic kidney disease; Z99.2 - Dependence on renal dialysis (4) Hypertension ICD Codes: I10 - Hypertension SNOMED: 84343437 Assessment/Plan: s/p EGD: SUMMARY OF FINDINGS: 1. Two gastric ulcers. 2. Gastritis. 3. Duodenitis. RECOMMENDATION: Follow biopsy results and treat accordingly. Treat for H pylori if it is positive. Meanwhile, the patient to be on PPI daily. She will need a repeat endoscopy in 8 weeks for followup. cbc in am transfuse if hgb below 7 HD per nephrology ; Petr Chapa MD Apr 17, 2020 14:07
--- NOTE | 2020-04-17 16:22 | General Progress Note ---
Subjective Allergies: Coded Allergies: No Known Allergies (Unverified , 05/24/13) Objective Last 24 Hour Vital Signs Date Time Temp Pulse Resp B/P (MAP) Pulse Ox O2 Delivery O2 Flow Rate FiO2 04/17/20 14:49 97.9 67 18 97/51 (66) 99 04/17/20 14:34 97.3 69 18 97/48 (64) 99 04/17/20 12:15 97.4 67 18 104/58 (73) 99 04/17/20 08:42 118/69 04/17/20 08:40 Room Air 04/17/20 08:00 98.2 95 20 118/69 (85) 97 04/17/20 04:00 98.4 83 18 98/51 (67) 97 04/17/20 00:00 97.9 79 20 97/50 (66) 98 04/16/20 21:54 Room Air 04/16/20 20:00 98.1 83 20 105/57 (73) 98 Intake and Output 04/16/20 04/17/20 19:00 07:00 Intake Total 240 ml Output Total 2000 ml Balance -2000 ml 240 ml Intake Oral 240 ml Hemodialysis UF 2000 ml Laboratory Tests 04/16/20 16:51: POC Whole Blood Glucose 140H 04/17/20 05:34: White Blood Count 5.7, Red Blood Count 2.40L, Hemoglobin 7.3L, Hematocrit 21.9L, Mean Corpuscular Volume 91, Mean Corpuscular Hemoglobin 30.3, Mean Corpuscular Hemoglobin Concent 33.2, Red Cell Distribution Width 13.5, Platelet Count 101L, Mean Platelet Volume 7.6, Neutrophils (%) (Auto) , Lymphocytes (%) (Auto) , Monocytes (%) (Auto) , Eosinophils (%) (Auto) , Basophils (%) (Auto) , Differential Total Cells Counted 100, Neutrophils % (Manual) 64, Lymphocytes % (Manual) 32, Monocytes % (Manual) 1, Eosinophils % (Manual) 3, Basophils % (Manual) 0, Band Neutrophils 0, Platelet Estimate DecreasedL, Platelet Morphology Normal, Red Blood Cell Morphology Normal, Sodium Level 139, Potassium Level 4.4, Chloride Level 101, Carbon Dioxide Level 32, Anion Gap 6, Blood Urea Nitrogen 37H, Creatinine 6.1H, Estimat Glomerular Filtration Rate 8.4, Glucose Level 146H, Calcium Level 8.2L, Phosphorus Level 3.3, Total Bilirubin 0.3, Aspartate Amino Transf (AST/SGOT) 13L, Alanine Aminotransferase (ALT/SGPT) 10L, Alkaline Phosphatase 86, Total Protein 6.2L, Albumin 2.9L, Globulin 3.3, Albumin/Globulin Ratio 0.9L 04/17/20 16:16: POC Whole Blood Glucose 151H Height (Feet): 5 Height (Inches): 5.00 Weight (Pounds): 154 Assessment/Plan Assessment/Plan: S: I am ok O: seems comfortable Exam: AT/NC, chest: clear, Heart: Regular, ABD: soft, MS: Imbalance, atrophied muscles, no asymmetric deficeit, Neuro: awake alert, Psych: normal Med: reviewed and reconciled Labs: dated Apr 15 reviewed Medical Decision Making Diagnostic Impression: Primary Impression: Flank pain Additional Impressions: Missed dialysis ESRD (end stage renal disease) on dialysis Anemia Qualified Codes: N18.6 - End stage renal disease; D63.1 - Anemia in chronic kidney disease; Z99.2 - Dependence on renal dialysis COVID-19 ruled out by laboratory testing DM Hyperlipidemia Abn imaging finding in Abd CT Imbalance, Deconditioning PUD Acute Anemia Plan: GI - procedure NPO for now hold [place]-insulin check iron panel AUSTEN Colindres PT/OT consulted Abnormal CEA level. further followup as an outpatient. Blood transfusion , PO DM medication Stool test Cristian White MD Apr 17, 2020 16:21
[2020-04-17] MEDS: Atorvastatin 20mg tab ORAL SCH (21:14)
[2020-04-18] VITALS: BP 106/68
[2020-04-18 04:00] VITALS: BP 112/72
[2020-04-18] MEDS: NovoLOG Insulin Flexpen SUBQ SCH ×2 (06:04→11:39)
[2020-04-18] MEDS ORDERED: sitaGLIPtin 25mg tab ORAL SCH (06:30)
[2020-04-18 07:26] LABS: EOSINOPHILS % (AUTO) 3.9 % (0.0-3.0); HEMATOCRIT 27.1 % (37.0-47.0); HEMOGLOBIN 9.2 G/DL (12.0-16.0); LYMPHOCYTES % (AUTO) 16.6 % (20.0-45.0); MEAN CORPUSCULAR VOLUME 88 FL (80-99); MONOCYTES % (AUTO) 6.3 % (1.0-10.0); NEUTROPHILS % (AUTO) 72.1 % (45.0-75.0); PLATELET COUNT 110 K/UL (150-450); RED BLOOD COUNT 3.07 M/UL (4.20-5.40); RED CELL DISTRIBUTION WIDTH 14.2 % (11.6-14.8); WHITE BLOOD COUNT 10.7 K/UL (4.8-10.8)
[2020-04-18 07:32] LABS: ALBUMIN 3.2 G/DL (3.4-5.0); BILIRUBIN,TOTAL 0.2 MG/DL (0.2-1.0); CALCIUM 8.8 MG/DL (8.5-10.1); PHOSPHORUS 3.3 MG/DL (2.5-4.9); POTASSIUM 4.8 MMOL/L (3.5-5.1)
[2020-04-18 08:00] VITALS: BP 112/61
[2020-04-18] MEDS: Lisinopril 2.5mg tab ORAL SCH (08:33)
[2020-04-18] MEDS: Sucralfate 1gm tab ORAL SCH ×2 (08:33→12:09)
[2020-04-18] MEDS: Docusate 100mg cap ORAL SCH ×2 (08:33→12:09)
[2020-04-18] MEDS: Aspirin EC 81mg tab ORAL SCH (08:33)
[2020-04-18] MEDS: Renvela 800mg Pkt ORAL SCH ×2 (08:34→12:09)
--- NOTE | 2020-04-18 09:17 | General Progress Note ---
Subjective ROS Limited/Unobtainable: Yes Allergies: Coded Allergies: No Known Allergies (Unverified , 05/24/13) Objective Last 24 Hour Vital Signs Date Time Temp Pulse Resp B/P (MAP) Pulse Ox O2 Delivery O2 Flow Rate FiO2 04/18/20 08:33 112/61 04/18/20 08:32 Room Air 04/18/20 08:00 97.7 76 18 112/61 (78) 98 04/18/20 04:00 98.5 78 18 112/72 (85) 97 04/18/20 00:00 97.5 75 18 106/68 (81) 98 04/17/20 20:10 Room Air 04/17/20 20:00 98.1 71 20 110/64 (79) 98 04/17/20 17:20 98.5 67 20 108/60 (76) 97 04/17/20 16:25 97.8 69 18 101/50 (67) 99 04/17/20 14:49 97.9 67 18 97/51 (66) 99 04/17/20 14:34 97.3 69 18 97/48 (64) 99 04/17/20 12:15 97.4 67 18 104/58 (73) 99 Intake and Output 04/17/20 04/18/20 19:00 07:00 Intake Total 970 ml 60 ml Balance 970 ml 60 ml Intake Oral 720 ml 60 ml Blood Product 250 ml # Voids 3 Laboratory Tests 04/17/20 16:16: POC Whole Blood Glucose 151H 04/18/20 05:40: White Blood Count 10.7#, Red Blood Count 3.07L, Hemoglobin 9.2L, Hematocrit 27.1L, Mean Corpuscular Volume 88, Mean Corpuscular Hemoglobin 30.1, Mean Corpuscular Hemoglobin Concent 34.1, Red Cell Distribution Width 14.2, Platelet Count 110L, Mean Platelet Volume 7.4, Neutrophils (%) (Auto) 72.1, Lymphocytes (%) (Auto) 16.6L, Monocytes (%) (Auto) 6.3, Eosinophils (%) (Auto) 3.9H, Bas ophils (%) (Auto) 1.0, Sodium Level 136, Potassium Level 4.8, Chloride Level 97L , Carbon Dioxide Level 30, Anion Gap 9, Blood Urea Nitrogen 56H, Creatinine 8.0H , Estimat Glomerular Filtration Rate 6.1, Glucose Level 127H, Calcium Level 8.8, Phosphorus Level 3.3, Total Bilirubin 0.2, Aspartate Amino Transf (AST/SGOT) 16, Alanine Aminotransferase (ALT/SGPT) 10L, Alkaline Phosphatase 102, C-Reactive Protein, Quantitative 1.1H, Total Protein 6.3L, Albumin 3.2L, Globulin 3.1, Albumin/Globulin Ratio 1.0 Height (Feet): 5 Height (Inches): 5.00 Weight (Pounds): 154 General Appearance: no apparent distress EENT: normal ENT inspection Neck: supple Cardiovascular: normal rate Respiratory/Chest: decreased breath sounds Abdomen: normal bowel sounds, non tender, soft Extremities: non-tender Assessment/Plan Problem List: (1) CVA (cerebrovascular accident) ICD Codes: I63.9 - CVA (cerebrovascular accident) SNOMED: 420957988 (2) ESRD (end stage renal disease) on dialysis ICD Codes: N18.6 - End stage renal disease; Z99.2 - Dependence on renal dialysis SNOMED: 218023296, 549785778 (3) Anemia ICD Codes: D64.9 - Anemia, unspecified SNOMED: 784923266, 863808894 Qualifiers: Qualified Codes: N18.6 - End stage renal disease; D63.1 - Anemia in chronic kidney disease; Z99.2 - Dependence on renal dialysis (4) Hypertension ICD Codes: I10 - Hypertension SNOMED: 31185207 Assessment/Plan: s/p EGD: SUMMARY OF FINDINGS: 1. Two gastric ulcers. 2. Gastritis. 3. Duodenitis. RECOMMENDATION: Follow biopsy results and treat accordingly. Treat for H pylori if it is positive. Meanwhile, the patient to be on PPI daily. She will need a repeat endoscopy in 8 weeks for followup. cbc in am transfuse if hgb below 7 HD per nephrology ; Petr Chapa MD Apr 18, 2020 09:16
--- NOTE | 2020-04-18 09:20 | General Progress Note ---
Subjective Date patient seen: Apr 18, 2020 Time patient seen: 08:00 - am Allergies: Coded Allergies: No Known Allergies (Unverified , 05/24/13) Subjective Constitutional: Reports: no symptoms HEENT: Reports: no symptoms Cardiovascular: Reports: no symptoms Respiratory: Reports: no symptoms Gastrointestinal/Abdominal: Reports: no symptoms Genitourinary: Reports: no symptoms Neurologic/Psychiatric: Reports: no symptoms Endocrine: Reports: no symptoms Hematologic/Lymphatic: Reports: no symptoms SUBJECTIVE: This is a 64 y/o female seen on the med/surg floor of [facility]. Patient has no signs of pain of distress. No changes noted. Objective Last 24 Hour Vital Signs Date Time Temp Pulse Resp B/P (MAP) Pulse Ox O2 Delivery O2 Flow Rate FiO2 04/18/20 08:33 112/61 04/18/20 08:32 Room Air 04/18/20 08:00 97.7 76 18 112/61 (78) 98 04/18/20 04:00 98.5 78 18 112/72 (85) 97 04/18/20 00:00 97.5 75 18 106/68 (81) 98 04/17/20 20:10 Room Air 04/17/20 20:00 98.1 71 20 110/64 (79) 98 04/17/20 17:20 98.5 67 20 108/60 (76) 97 04/17/20 16:25 97.8 69 18 101/50 (67) 99 04/17/20 14:49 97.9 67 18 97/51 (66) 99 04/17/20 14:34 97.3 69 18 97/48 (64) 99 04/17/20 12:15 97.4 67 18 104/58 (73) 99 Intake and Output 04/17/20 04/18/20 19:00 07:00 Intake Total 970 ml 60 ml Balance 970 ml 60 ml Intake Oral 720 ml 60 ml Blood Product 250 ml # Voids 3 Laboratory Tests 04/17/20 16:16: POC Whole Blood Glucose 151H 04/18/20 05:40: White Blood Count 10.7#, Red Blood Count 3.07L, Hemoglobin 9.2L, Hematocrit 27.1L, Mean Corpuscular Volume 88, Mean Corpuscular Hemoglobin 30.1, Mean Corpuscular Hemoglobin Concent 34.1, Red Cell Distribution Width 14.2, Platelet Count 110L, Mean Platelet Volume 7.4, Neutrophils (%) (Auto) 72.1, Lymphocytes (%) (Auto) 16.6L, Monocytes (%) (Auto) 6.3, Eosinophils (%) (Auto) 3.9H, Basophils (%) (Auto) 1.0, Sodium Level 136, Potassium Level 4.8, Chloride Level 97L, Carbon Dioxide Level 30, Anion Gap 9, Blood Urea Nitrogen 56H, Creatinine 8.0H, Estimat Glomerular Filtration Rate 6.1, Glucose Level 127H, Calcium Level 8.8, Phosphorus Level 3.3, Total Bilirubin 0.2, Aspartate Amino Transf (A ST/SGOT) 16, Alanine Aminotransferase (ALT/SGPT) 10L, Alkaline Phosphatase 102, C-Reactive Protein, Quantitative 1.1H, Total Protein 6.3L, Albumin 3.2L, Globulin 3.1, Albumin/Globulin Ratio 1.0 Height (Feet): 5 Height (Inches): 5.00 Weight (Pounds): 154 Objective General Appearance: no apparent distress, alert EENT: PERRL/EOMI, normal ENT inspection Neck: non-tender, normal alignment Cardiovascular: normal rate, regular rhythm Abdomen: non tender, soft Extremities: non-tender Edema: trace edema Neurologic: alert, oriented x 3 Skin: normal pigmentation Assessment/Plan Assessment/Plan: (1) Flank pain (2) ESRD on hemodialysis Patient to be continued on [place]. D/w Dr. Cifuentes and he concurred. Evans Gordon Apr 18, 2020 09:20
[2020-04-18] MEDS ORDERED: COLACE100 MG ORAL (11:34)
[2020-04-18] MEDS ORDERED: BISACODYL5 MG ORAL (11:34)
[2020-04-18 11:53] VITALS: BP 96/50
[2020-04-18] MEDS ORDERED: KEPPRA500 M4 ORAL (11:57)
[2020-04-18] MEDS ORDERED: JANUVIA25 MG ORAL (11:59)
[2020-04-18] MEDS ORDERED: CARAFATE1 G1 ORAL (11:59)
--- NOTE | 2020-04-18 12:27 | General Progress Note ---
Subjective Allergies: Coded Allergies: No Known Allergies (Unverified , 05/24/13) Objective Last 24 Hour Vital Signs Date Time Temp Pulse Resp B/P (MAP) Pulse Ox O2 Delivery O2 Flow Rate FiO2 04/18/20 11:53 97.4 70 18 96/50 (65) 99 04/18/20 08:33 112/61 04/18/20 08:32 Room Air 04/18/20 08:00 97.7 76 18 112/61 (78) 98 04/18/20 04:00 98.5 78 18 112/72 (85) 97 04/18/20 00:00 97.5 75 18 106/68 (81) 98 04/17/20 20:10 Room Air 04/17/20 20:00 98.1 71 20 110/64 (79) 98 04/17/20 17:20 98.5 67 20 108/60 (76) 97 04/17/20 16:25 97.8 69 18 101/50 (67) 99 04/17/20 14:49 97.9 67 18 97/51 (66) 99 04/17/20 14:34 97.3 69 18 97/48 (64) 99 04/17/20 12:15 97.4 67 18 104/58 (73) 99 Intake and Output 04/17/20 04/18/20 19:00 07:00 Intake Total 970 ml 60 ml Balance 970 ml 60 ml Intake Oral 720 ml 60 ml Blood Product 250 ml # Voids 3 Laboratory Tests 04/17/20 16:16: POC Whole Blood Glucose 151H 04/18/20 05:40: White Blood Count 10.7#, Red Blood Count 3.07L, Hemoglobin 9.2L, Hematocrit 27.1L, Mean Corpuscular Volume 88, Mean Corpuscular Hemoglobin 30.1, Mean Corpuscular Hemoglobin Concent 34.1, Red Cell Distribution Width 14.2, Platelet Count 110L, Mean Platelet Volume 7.4, Neutrophils (%) (Auto) 72.1, Lymphocytes (%) (Auto) 16.6L, Monocytes (%) (Auto) 6.3, Eosinophils (%) (Auto) 3.9H, Basophils (%) (Auto) 1.0, Sodium Level 136, Potassium Level 4.8, Chloride Level 97L, Carbon Dioxide Level 30, Anion Gap 9, Blood Urea Nitrogen 56H, Creatinine 8.0H, Estimat Glomerular Filtration Rate 6.1, Glucose Level 127H, Calcium Level 8.8, Phosphorus Level 3.3, Total Bilirubin 0.2, Aspartate Amino Transf (AST/SGOT) 16, Alanine Aminotransferase (ALT/SGPT) 10L, Alkaline Phosphatase 102, C-Reactive Protein, Quantitative 1.1H, Total Protein 6.3L, Albumin 3.2L, Globulin 3.1, Albumin/Globulin Ratio 1.0 04/18/20 11:28: POC Whole Blood Glucose 115H 04/18/20 11:31: POC Whole Blood Glucose 168H Height (Feet): 5 Height (Inches): 5.00 Weight (Pounds): 154 Assessment/Plan Assessment/Plan: S: I am ok O: seems comfortable Exam: AT/NC, chest: clear, Heart: Regular, ABD: soft, MS: Imbalance, atrophied muscles, no asymmetric deficeit, Neuro: awake alert, Psych: normal Med: reviewed and reconciled Labs: dated Apr 18 reviewed Medical Decision Making Diagnostic Impression: Primary Impression: Flank pain Additional Impressions: Missed dialysis ESRD (end stage renal disease) on dialysis Anemia Qualified Codes: N18.6 - End stage renal disease; D63.1 - Anemia in chronic kidney disease; Z99.2 - Dependence on renal dialysis COVID-19 ruled out by laboratory testing DM Hyperlipidemia Abn imaging finding in Abd CT Imbalance, Deconditioning PUD Acute Anemia Plan: GI - procedure NPO for now hold [place]-insulin check iron panel DC Dilaudid PT/OT consulted Abnormal CEA level. further followup as an outpatient. Blood transfusion , PO DM medication Stool test Medication reconciliation completed. New medication is e-prescribed to pharmacy. Comment: this note does not reflect the actual time of the encounter Cristian White MD Apr 18, 2020 12:26
--- NOTE | 2020-04-18 13:24 | Nephrology Progress Note ---
Assessment/Plan Problem List: (1) ESRD (end stage renal disease) on dialysis (2) Flank pain (3) Anemia (4) CVA (cerebrovascular accident) Assessment End-stage renal disease, on hemodialysis Tuesday. Missed her last dialysis session. History of anemia of chronic kidney disease History of hydronephrosis Admitted with flank pain Covid 19 ruled out by lab testing first time History of CVA Plan April 18: Patient due for dialysis tomorrow Tuesday. If discharged should attend her outpatient dialysis unit tomorrow. Meanwhile stable from renal standpoint of view. April 17: Dialyzed yesterday. Clinically stable. Labs reviewed. Hemoglobin low 7.3. Will transfuse 1 unit of packed RBCs today. Next dialysis tomorrow or on Tuesday. April 16: Labs of yesterday reviewed. GI results noted. Patient due for dialysis today. Patient clinically stable. Decrease lisinopril dose to 5 mg a day April 15: Today's labs pending. Patient went for endoscopy today. Discussed with RN. Will order dialysis for tomorrow. Continue per consultants. Previously: Check kidney ultrasound for hydronephrosis and bladder distention, results noted Urine analysis and culture Hemodialysis ordered for today Continue to monitor renal parameters Keep the blood pressure blood sugar in check Adjust blood pressure medication dose Continue per ID advice Subjective ROS Limited/Unobtainable: No Constitutional: Reports: malaise Objective Objective Last 24 Hour Vital Signs Date Time Temp Pulse Resp B/P (MAP) Pulse Ox O2 Delivery O2 Flow Rate FiO2 04/18/20 11:53 97.4 70 18 96/50 (65) 99 04/18/20 08:33 112/61 04/18/20 08:32 Room Air 04/18/20 08:00 97.7 76 18 112/61 (78) 98 04/18/20 04:00 98.5 78 18 112/72 (85) 97 04/18/20 00:00 97.5 75 18 106/68 (81) 98 04/17/20 20:10 Room Air 04/17/20 20:00 98.1 71 20 110/64 (79) 98 04/17/20 17:20 98.5 67 20 108/60 (76) 97 04/17/20 16:25 97.8 69 18 101/50 (67) 99 04/17/20 14:49 97.9 67 18 97/51 (66) 99 04/17/20 14:34 97.3 69 18 97/48 (64) 99 Intake and Output 04/17/20 04/18/20 19:00 07:00 Intake Total 970 ml 60 ml Balance 970 ml 60 ml Intake Oral 720 ml 60 ml Blood Product 250 ml # Voids 3 Current Medications Medications (Trade) Dose Ordered Sig/Gini Route PRN Reason Start Time Stop Time Status Last Admin Dose Admin Acetaminophen/ Hydrocodone Bitart ([place] 5/325) 1 tab Q6H PRN ORAL For Pain 04/13/20 23:45 04/20/20 23:44 Aspirin (Ecotrin) 81 mg DAILY ORAL 04/14/20 09:00 05/29/20 08:59 04/18/20 08:33 Atorvastatin Calcium (Lipitor) 20 mg BEDTIME ORAL 04/14/20 21:00 07/13/20 20:59 04/17/20 21:14 Bisacodyl (Dulcolax) 5 mg DAILYPRN PRN ORAL Constipation 04/16/20 22:30 07/15/20 22:29 04/17/20 21:15 Dextrose (Dextrose 50%) 25 ml Q30M PRN IV Hypoglycemia 04/13/20 23:45 07/12/20 23:44 Dextrose (Dextrose 50%) 50 ml Q30M PRN IV Hypoglycemia 04/13/20 23:45 07/12/20 23:44 Diphenhydramine HCl (Benadryl) 25 mg Q6H PRN IVP Itching 04/13/20 23:45 05/13/20 23:44 Docusate Sodium (Colace) 100 mg THREE TIMES A DAY ORAL 04/14/20 13:00 05/14/20 12:59 04/18/20 12:09 Epoetin Jairo (Epoetin Jairo(ESRD on dialysis)) 10,000 unit TUE-TUE-TUE SUBQ 04/14/20 21:00 07/13/20 20:59 04/16/20 21:06 Insulin Aspart (NovoLOG) BEFORE MEALS AND HS SUBQ 04/14/20 06:30 07/13/20 06:29 04/18/20 11:39 Levetiracetam (Keppra) 500 mg Q12HR ORAL 04/14/20 09:00 05/14/20 00:29 04/18/20 08:33 Lisinopril (ZestriL) 5 mg DAILY ORAL 04/16/20 12:00 05/16/20 11:59 04/18/20 08:33 Metoclopramide HCl (Reglan) 10 mg Q6H PRN IVP Nausea & Vomiting 04/13/20 23:45 05/13/20 23:44 Ondansetron HCl (Zofran) 4 mg Q6H PRN IVP Nausea & Vomiting refractory 04/13/20 23:45 05/13/20 23:44 Pantoprazole (Protonix) 40 mg EVERY 12 HOURS ORAL 04/14/20 09:00 05/14/20 00:29 04/18/20 08:33 Sennosides (Senokot) 8.6 mg DAILY PRN ORAL Constipation 04/16/20 23:00 05/16/20 22:29 04/17/20 21:14 Sevelamer Carbonate (Renvela) 800 mg THREE TIMES A DAY ORAL 04/14/20 09:00 07/13/20 08:59 04/18/20 12:09 Sitagliptin Phosphate (Januvia) 25 mg ACBREAKFAST ORAL 04/18/20 06:30 05/18/20 06:29 04/18/20 06:04 Sucralfate (Carafate) 1 gm FOUR TIMES A DAY ORAL 04/15/20 09:00 07/14/20 08:59 04/18/20 12:09 Laboratory Tests 04/17/20 16:16: POC Whole Blood Glucose 151H 04/18/20 05:40: White Blood Count 10.7#, Red Blood Count 3.07L, Hemoglobin 9.2L, Hematocrit 27.1L, Mean Corpuscular Volume 88, Mean Corpuscular Hemoglobin 30.1, Mean Corpuscular Hemoglobin Concent 34.1, Red Cell Distribution Width 14.2, Platelet Count 110L, Mean Platelet Volume 7.4, Neutrophils (%) (Auto) 72.1, Lymphocytes (%) (Auto) 16.6L, Monocytes (%) (Auto) 6.3, Eosinophils (%) (Auto) 3.9H, Basophils (%) (Auto) 1.0, Sodium Level 136, Potassium Level 4.8, Chloride Level 97L, Carbon Dioxide Level 30, Anion Gap 9, Blood Urea Nitrogen 56H, Creatinine 8.0H, Estimat Glomerular Filtration Rate 6.1, Glucose Level 127H, Calcium Level 8.8, Phosphorus Level 3.3, Total Bilirubin 0.2, Aspartate Amino Transf (AST/SGOT) 16, Alanine Aminotransferase (ALT/SGPT) 10L, Alkaline Phosphatase 102, C-Reactive Protein, Quantitative 1.1H, Total Protein 6.3L, Albumin 3.2L, Globulin 3.1, Albumin/Globulin Ratio 1.0 04/18/20 11:28: POC Whole Blood Glucose 115H 04/18/20 11:31: POC Whole Blood Glucose 168H Height (Feet): 5 Height (Inches): 5.00 Weight (Pounds): 154 Cardiovascular: normal rate Respiratory/Chest: decreased breath sounds Abdomen: soft Objective No change Supa Gomes MD Apr 18, 2020 13:24
--- NOTE | 2020-04-18 14:47 | Infectious Diseases Prog Note ---
Assessment/Plan Assessment: COVID19 neg (04/13 rapid COVID PCR neg) -CXR: Cardiomegaly and mild pulmonary vascular congestion. Afebrile No leukocytosis Abd pain, L flank pain Dilated CBD- ?etiology -MRCP: Dilated common bile duct, measuring up to 17 mm in diameter. No definite choledocholithiasis or downstream obstructive lesion demonstrated. Significance uncertain. Occult ampullary obstructive lesion possible. Dilated pancreatic duct, measuring up to 11 mm in diameter, without definite downstream obstructive lesion. Occult ampullary obstructive lesion likewise also possible. Unusual finding of filling defects within the pancreatic duct, most likely ref lects gas bubbles demonstrated on prior CT scan. Etiology of this is uncertain. Atrophic kidneys, consistent with medical renal disease, also described on prior imaging studies. Thickened bladder wall, may indicate cystitis -CT abd/p wo: Bladder wall thickening out of proportion to level of distention. Findings are suspicious for cystitis. Recommend correlation with urinalysis. Nonspecific dilatation of the distal main pancreatic duct which also contains a small amount of air. Query recent ERCP. In the absence of such history, an underlying obstructing lesion seen at the level of the ampulla should be excluded. -Renal US: Small echogenic kidneys bilaterally, consistent with known history of chronic medical renal disease. Bilateral nonobstructive intrarenal calculi, also demonstrated on previous day's CT scan. Negative for hydronephrosis. Nonspecific bladder wall thickening. Diarrhea -stool cdiff and cx p Dm2 AOCKD HLD Sp hysterectomy nephrolithiasis CVA 2011 HTN ESRD on HD via L AVG Plan: -Continue to monitor off abx -f/u cx -Monitor CBC/CMP, temperatures -GI f.u Thank you for this consultation. Will continue to follow along with you. Discussed with RN. Subjective Allergies: Coded Allergies: No Known Allergies (Unverified , 05/24/13) afebrile no leukocytosis off abx Objective Last 24 Hour Vital Signs Date Time Temp Pulse Resp B/P (MAP) Pulse Ox O2 Delivery O2 Flow Rate FiO2 04/18/20 11:53 97.4 70 18 96/50 (65) 99 04/18/20 08:33 112/61 04/18/20 08:32 Room Air 04/18/20 08:00 97.7 76 18 112/61 (78) 98 04/18/20 04:00 98.5 78 18 112/72 (85) 97 04/18/20 00:00 97.5 75 18 106/68 (81) 98 04/17/20 20:10 Room Air 04/17/20 20:00 98.1 71 20 110/64 (79) 98 04/17/20 17:20 98.5 67 20 108/60 (76) 97 04/17/20 16:25 97.8 69 18 101/50 (67) 99 04/17/20 14:49 97.9 67 18 97/51 (66) 99 Height (Feet): 5 Height (Inches): 5.00 Weight (Pounds): 154 HEENT: Normocephalic and atraumatic. Sclerae anicteric. NECK: Supple. No obvious lymphadenopathy. CARDIOVASCULAR: Regular rate and rhythm. Plus S1 and S2. LUNGS: Decreased breath sounds bilaterally based on the supine exam. ABDOMEN: Soft, nontender. No rebound. No guarding. No peritoneal sign. EXTREMITIES: No cyanosis, no clubbing, no edema. Laboratory Tests Test 04/17/20 16:16 04/18/20 05:40 04/18/20 11:28 04/18/20 11:31 POC Whole Blood Glucose 151 MG/DL (74-106) H 115 MG/DL (74-106) H 168 MG/DL (74-106) H White Blood Count 10.7 K/UL (4.8-10.8) # Red Blood Count 3.07 M/UL (4.20-5.40) L Hemoglobin 9.2 G/DL (12.0-16.0) L Hematocrit 27.1 % (37.0-47.0) L Mean Corpuscular Volume 88 FL (80-99) Mean Corpuscular Hemoglobin 30.1 PG (27.0-31.0) Mean Corpuscular Hemoglobin Concent 34.1 G/DL (32.0-36.0) Red Cell Distribution Width 14.2 % (11.6-14.8) Platelet Count 110 K/UL (150-450) L Mean Platelet Volume 7.4 FL (6.5-10.1) Neutrophils (%) (Auto) 72.1 % (45.0-75.0) Lymphocytes (%) (Auto) 16.6 % (20.0-45.0) L Monocytes (%) (Auto) 6.3 % (1.0-10.0) Eosinophils (%) (Auto) 3.9 % (0.0-3.0) H Basophils (%) (Auto) 1.0 % (0.0-2.0) Sodium Level 136 MMOL/L (136-145) Potassium Level 4.8 MMOL/L (3.5-5.1) Chloride Level 97 MMOL/L (98-107) L Carbon Dioxide Level 30 MMOL/L (21-32) Anion Gap 9 mmol/L (5-15) Blood Urea Nitrogen 56 mg/dL (7-18) H Creatinine 8.0 MG/DL (0.55-1.30) H Estimat Glomerular Filtration Rate 6.1 mL/min (>60) Glucose Level 127 MG/DL (74-106) H Calcium Level 8.8 MG/DL (8.5-10.1) Phosphorus Level 3.3 MG/DL (2.5-4.9) Total Bilirubin 0.2 MG/DL (0.2-1.0) Aspartate Amino Transf (AST/SGOT) 16 U/L (15-37) Alanine Aminotransferase (ALT/SGPT) 10 U/L (12-78) L Alkaline Phosphatase 102 U/L (46-116) C-Reactive Protein, Quantitative 1.1 mg/dL (0.00-0.90) H Total Protein 6.3 G/DL (6.4-8.2) L Albumin 3.2 G/DL (3.4-5.0) L Globulin 3.1 g/dL Albumin/Globulin Ratio 1.0 (1.0-2.7) Current Medications Medications (Trade) Dose Ordered Sig/Gini Route PRN Reason Start Time Stop Time Status Last Admin Dose Admin Acetaminophen/ Hydrocodone Bitart ([place] 5/325) 1 tab Q6H PRN ORAL For Pain 04/13/20 23:45 04/20/20 23:44 Aspirin (Ecotrin) 81 mg DAILY ORAL 04/14/20 09:00 05/29/20 08:59 04/18/20 08:33 Atorvastatin Calcium (Lipitor) 20 mg BEDTIME ORAL 04/14/20 21:00 07/13/20 20:59 04/17/20 21:14 Bisacodyl (Dulcolax) 5 mg DAILYPRN PRN ORAL Constipation 04/16/20 22:30 07/15/20 22:29 04/17/20 21:15 Dextrose (Dextrose 50%) 25 ml Q30M PRN IV Hypoglycemia 04/13/20 23:45 07/12/20 23:44 Dextrose (Dextrose 50%) 50 ml Q30M PRN IV Hypoglycemia 04/13/20 23:45 07/12/20 23:44 Diphenhydramine HCl (Benadryl) 25 mg Q6H PRN IVP Itching 04/13/20 23:45 05/13/20 23:44 Docusate Sodium (Colace) 100 mg THREE TIMES A DAY ORAL 04/14/20 13:00 05/14/20 12:59 04/18/20 12:09 Epoetin Jairo (Epoetin Jairo(ESRD on dialysis)) 10,000 unit TUE- SUBQ 04/14/20 21:00 07/13/20 20:59 04/16/20 21:06 Insulin Aspart (NovoLOG) BEFORE MEALS AND HS SUBQ 04/14/20 06:30 07/13/20 06:29 04/18/20 11:39 Levetiracetam (Keppra) 500 mg Q12HR ORAL 04/14/20 09:00 05/14/20 00:29 04/18/20 08:33 Lisinopril (ZestriL) 5 mg DAILY ORAL 04/16/20 12:00 05/16/20 11:59 04/18/20 08:33 Metoclopramide HCl (Reglan) 10 mg Q6H PRN IVP Nausea & Vomiting 04/13/20 23:45 05/13/20 23:44 Ondansetron HCl (Zofran) 4 mg Q6H PRN IVP Nausea & Vomiting refractory 04/13/20 23:45 05/13/20 23:44 Pantoprazole (Protonix) 40 mg EVERY 12 HOURS ORAL 04/14/20 09:00 05/14/20 00:29 04/18/20 08:33 Sennosides (Senokot) 8.6 mg DAILY PRN ORAL Constipation 04/16/20 23:00 05/16/20 22:29 04/17/20 21:14 Sevelamer Carbonate (Renvela) 800 mg THREE TIMES A DAY ORAL 04/14/20 09:00 07/13/20 08:59 04/18/20 12:09 Sitagliptin Phosphate (Januvia) 25 mg ACBREAKFAST ORAL 04/18/20 06:30 05/18/20 06:29 04/18/20 06:04 Sucralfate (Carafate) 1 gm FOUR TIMES A DAY ORAL 04/15/20 09:00 07/14/20 08:59 04/18/20 12:09 Na Ndiaye M.D. Apr 18, 2020 14:47
--- NOTE | 2020-04-20 10:56 | Discharge Summary ---
Discharge Summary Discharge Summary _ DATE OF ADMISSION: 04/13/2020 DATE OF DISCHARGE: 04/18/2020 DISCHARGED BY: Dr. Cristian White CONSULTANTS: Dr. Na Chapa [facility] COURSE: Patient is a 64-year-old female who presented with chief complaint of left flank and lower back pain. She states that she had similar pain in the past when she was passing a kidney stone. She is a dialysis patient and missed her dialysis because of a stomach filled and was not feeling well. She also had loose stools at that time. She still able to produce urine however denies any dysuria or hematuria. She denies fever or chills. Patient is also diabetic. Upon evaluation at the ED, vital signs were stable. Blood work did not show any leukocytosis. Hemoglobin 8 and hematocrit 26. Electrolytes were normal. Creatinine was elevated to 11 and BUN 17. EKG was in normal sinus rhythm with no acute changes. Chest x-ray showed increased markings. CT of the abdomen and pelvis showed bladder wall thickening suspicious for cystitis. Nonspecific dilatation of the distal main pancreatic duct. Rapid PCR Covid test was negative. She was admitted to medical floor. She was started on renal diet. She was given proton pump inhibitors. She was given pain management. She was given inpatient hemodialysis. On 04/15/2020, she underwent EGD. Patient had evidence of 2 ulcers in the antrum of the stomach. Ulcer was clean base, shallow, less than 1 cm in size. She also had evidence of gastritis and duodenitis. She was recommended repeat colonoscopy in 8 weeks for follow-up. MRCP showed dilated common bile duct measuring up to 17 mm in diameter. No definite choledocholithiasis or downstream obstructive lesion. Renal ultrasound showed small echogenic kidneys bilaterally. Negative for hydronephrosis. There was a drop in hemoglobin to 7.3. Hematocrit 22. She was given 1 unit packed RBC blood transfusion. CEA was elevated to 5.6. CA 199 was normal. Patient was recommended follow-up as outpatient for abnormal CEA level. FINAL DIAGNOSES: PUD Acute anemia requiring blood transfusion Hyperlipidemia Diabetes mellitus Imbalance, deconditioning Abnormal imaging finding on abdominal CT End-stage renal disease on hemodialysis DISPOSITION: Patient was discharged home with home health. DISCHARGE MEDICATIONS: Refer to Discharge Medication List. DISCHARGE INSTRUCTIONS: Follow-up in a week. I have been assigned to complete a discharge summary on this account, I was not involved with the patient's management.--MARIA Garza Jacqueline Robles NP Apr 20, 2020 10:56
== END 2020-04-18 15:16 | disposition home health service (06) | DRG 383 ==
LOC: EDBD 19:46 → EMR 20:11 → 4E 22:29 → EDBEDREQ 22:45 → 4E 04-14 15:52
PROC: 0DB68ZX Excision of Stomach, Via Natural or Artificial Opening Endoscopic, Diagnostic (ICD-10-PCS; principal; 2020-04-15 08:53)
PROC: 0DB78ZX Excision of Stomach, Pylorus, Via Natural or Artificial Opening Endoscopic, Diagnostic (ICD-10-PCS; principal; 2020-04-15 08:53)
PROC: 30233N1 Transfusion of Nonautologous Red Blood Cells into Peripheral Vein, Percutaneous Approach (ICD-10-PCS; 2020-04-17)
PROC: 5A1D70Z Performance of Urinary Filtration, Intermittent, Less than 6 Hours Per Day (ICD-10-PCS; 2020-04-18)
DX: K25.9 Gastric ulcer, unspecified as acute or chronic, without hemorrhage or perforation (principal); N18.6 End stage renal disease; I12.0 Hypertensive chronic kidney disease with stage 5 chronic kidney disease or end stage renal disease; E11.22 Type 2 diabetes mellitus with diabetic chronic kidney disease; K29.70 Gastritis, unspecified, without bleeding; R97.0 Elevated carcinoembryonic antigen [CEA]; D64.9 Anemia, unspecified; E78.5 Hyperlipidemia, unspecified; Z79.82 Long term (current) use of aspirin; Z79.4 Long term (current) use of insulin; Z86.73 Personal history of transient ischemic attack (TIA), and cerebral infarction without residual deficits; N20.0 Calculus of kidney; K29.80 Duodenitis without bleeding; R19.7 Diarrhea, unspecified
CPT/HCPCS: 36415; 71045; 74176; 74181; 76770; 80053; 80061; 82150; 82378; 82607; 82728; 82962; 82977; 83036; 83540; 83550; 83690; 83735; 83880; 84100; 84443; 84484; 84550; 85007; 85025; 85610; 85730; 86140; 86706; 86850; 86900; 86901; 86920; 93005; 94003; 94150; 96374; 96375; 99285; J1815; J2765; U0002

== ENCOUNTER 2020-05-01 18:45 | Inpatient (IN) | payer MEDICARE, MEDICAID ==
[~2020-05-01] VITALS: Ht 157.5 cm; Wt 75.3 kg
[~2020-05-01 18:45] MED LIST changes: +BISACODYL5 MG ORAL; +CARAFATE1 G1 ORAL; +COLACE100 MG ORAL; +JANUVIA25 MG ORAL; +KEPPRA500 M4 ORAL
--- NOTE | 2020-05-01 18:50 | NUR ---
ED Nurse Note: Pt brought in by ambulance from home s/p fall. Pt reports falling out of bed and the mattress falling on top of her. Pt reporting right hip pain. Respirations even and unlabored on room air. Vitals stable as documented. A+Ox4, speaking in complete sentences.
[2020-05-01 18:51] VITALS: BP 125/84
[2020-05-01] MEDS ORDERED: Morphine Sulfate 4mg/ml Inj (IV USE ONLY) IVP ONE (19:00)
--- NOTE | 2020-05-01 19:10 | NUR ---
ED Nurse Note: Recieved report from am nurse to resume care, pt in bed awake, alert and oriented x 4, pt herer for s/p fall and has c/o pain to right hip, pt is currently having x-rays done at bedside, will medicate for pain as ordered and monitor for effectiveness, pt denies chest pain and no sob or labored breathing ntoed, pt has left upper arm AV shunt for dialysis, missed today only due to fall.
--- NOTE | 2020-05-01 19:10 | NUR ---
HAND-OFF: Report given to SEEMA Conley. Pt in stable condition; plan of care endorsed.
--- NOTE | 2020-05-01 19:11 | Emergency Room Report ---
History of Present Illness General Chief Complaint: Multiple Trauma/Fall Source: Patient Present Illness HPI 64-year-old female presents with right hip pain, right knee pain after head, no LOC did not hit her head, endorses sharp pain aggravated with movement alleviated rest severity is moderate, intermittent, patient was having difficulty ambulating without assistance, she was initially was to be transferred to the hospital in the morning however she refused transport, this event occurred in the morning Allergies: Coded Allergies: No Known Allergies (Unverified , 05/24/13) COVID-19 Screening Contact w/high risk pt: No Experienced COVID-19 symptoms?: No COVID-19 Testing performed RN FIELD CASE MANAGER: No Patient History Past Medical History: see triage record Last Menstrual Period: n/a Reviewed Nursing Documentation: PMH: Agreed; PSxH: Agreed Nursing Documentation-PMH Past Medical History: No History, Except For Hx Cardiac Problems: Yes Hx Hypertension: Yes Hx Diabetes: Yes Hx Cancer: No Hx Gastrointestinal Problems: No Hx Dialysis: Yes - , , Tuesday Hx Neurological Problems: Yes Hx Cerebrovascular Accident: Yes - 2011 Hx Seizures: Yes - reports last seizure 2019 Hx Weakness: Yes Review of Systems All Other Systems: negative except mentioned in HPI Physical Exam Vital Signs Date Time Temp Pulse Resp B/P (MAP) Pulse Ox O2 Delivery O2 Flow Rate FiO2 05/01/20 18:40 98.1 76 15 129/88 (102) 99 Room Air Sp02 EP Interpretation: reviewed, normal General Appearance: well appearing, no apparent distress, alert Head: normocephalic, atraumatic Eyes: bilateral eye PERRL, bilateral eye EOMI ENT: uvula midline, moist mucus membranes Neck: supple, thyroid normal, supple/symm/no masses Respiratory: lungs clear, no respiratory distress, no retraction, no accessory muscle use Cardiovascular #1: normal peripheral pulses, regular rate, rhythm, no edema, no gallop, no murmur Gastrointestinal: non tender, soft, no guarding, no rebound Musculoskeletal: other - Right lower extremity: Tenderness to palpation right hip, no leg length discrepancy Neurologic: alert, oriented x3 Psychiatric: mood/affect normal Skin: no rash, warm/dry Procedures Critical Care Time Critical Care Time Given the critical condition in which the patient arrived, the patient was immediately assessed by myself and the nurse, and cardiac monitoring initiated due to the potential for rapid decompensation of the patient's clinical condition. During the course of the patient's stay, I spent a considerable amount of time at the bedside performing serial re-evaluations of the patient's hemodynamic and clinical status because of the recognized potential threat to life or limb in this condition. I then had a chance to review not only all of the available current laboratory and radiographic studies obtained today, but I also reviewed old records available to me at the time. Additionally, any ancillary information available including thaw shed heater tender records were reviewed. Sequential vital signs were obtained. Critical Care time of 31 minutes was performed exclusive of billable procedures. Medical Decision Making Diagnostic Impression: Primary Impression: ESRD (end stage renal disease) on dialysis Additional Impressions: Hyperkalemia Contusion of hip, right Qualified Codes: S70.01XA - Contusion of right hip, initial encounter ER Course 64-year-old female presents with right hip pain, x-ray negative, CT negative, patient with most likely a right hip contusion, patient also found to be hyperkalemic, patient given pain medication, patient also given hyperkalemia cocktail, calcium gluconate, insulin 5, dextrose 50, 100mL. Patient remains critical given the fact that she missed her dialysis, and has hyperkalemia patient stabilized with cocktail We will admit patient to Dr. White for continued tx Laboratory Tests Test 05/01/20 19:05 White Blood Count 6.3 K/UL (4.8-10.8) Red Blood Count 3.07 M/UL (4.20-5.40) L Hemoglobin 8.9 G/DL (12.0-16.0) L Hematocrit 27.3 % (37.0-47.0) L Mean Corpuscular Volume 89 FL (80-99) Mean Corpuscular Hemoglobin 29.0 PG (27.0-31.0) Mean Corpuscular Hemoglobin Concent 32.7 G/DL (32.0-36.0) Red Cell Distribution Width 13.2 % (11.6-14.8) Platelet Count 169 K/UL (150-450) Mean Platelet Volume 7.2 FL (6.5-10.1) Neutrophils (%) (Auto) 71.0 % (45.0-75.0) Lymphocytes (%) (Auto) 14.4 % (20.0-45.0) L Monocytes (%) (Auto) 8.1 % (1.0-10.0) Eosinophils (%) (Auto) 4.9 % (0.0-3.0) H Basophils (%) (Auto) 1.7 % (0.0-2.0) Prothrombin Time 10.8 SEC (9.30-11.50) Prothrombin Time INR 1.0 (0.9-1.1) Activated Partial Thromboplast Time 25 SEC (23-33) Sodium Level 129 MMOL/L (136-145) L Potassium Level 6.0 MMOL/L (3.5-5.1) *H Chloride Level 88 MMOL/L (98-107) L Carbon Dioxide Level 21 MMOL/L (21-32) Blood Urea Nitrogen 122 mg/dL (7-18) H Creatinine 16.7 MG/DL (0.55-1.30) H Estimated Glomerular Filtration Rate 2.7 mL/min (>60) Glucose Level 104 MG/DL (74-106) Calcium Level 7.1 MG/DL (8.5-10.1) L Total Bilirubin 0.4 MG/DL (0.2-1.0) Aspartate Amino Transferase (AST) 42 U/L (15-37) H Alanine Aminotransferase (ALT) 29 U/L (12-78) Alkaline Phosphatase 88 U/L (46-116) Total Protein 7.7 G/DL (6.4-8.2) Albumin 3.4 G/DL (3.4-5.0) Globulin 4.3 g/dL Albumin/Globulin Ratio 0.8 (1.0-2.7) L Microbiology Date/Time Source Procedure Growth Status 05/01/20 19:15 Nasopharynx SARS-CoV-2 RdRp Gene Assay - Final Complete EKG Diagnostic Results EKG Time: 19:14 EP Interpretation: NSR, rate 76, QTc 499, no acute ST elevations, normal axis Rhythm Strip Diag. Results Rhythm Strip Time: 21:51 EP Interpretation: yes Rate: 85 Rhythm: NSR, no PVC's, no ectopy Chest X-Ray Diagnostic Results Chest X-Ray Diagnostic Results : Chest X-Ray Ordered: Yes # of Views/Limited/Complete: 1 View Indication: Shortness of Breath EP Interpretation: Yes Interpretation: other - No pneumothorax, no effusion, mild pulmonary edema present Impression: Other - No pneumothorax, no effusion, mild pulmonary edema present Electronically Signed by: Adams Carter MD Other X-Ray Diagnostic Results Other X-Ray Diagnostic Results : X-Ray ordered: Right knee # of Views/Limited Vs Complete: 3 View Indication: Pain EP Interpretation: Yes Interpretation: no dislocation, no soft tissue swelling, no fractures Impression: No acute disease Electronically Signed by: Adams Carter MD CT/MRI/US Diagnostic Results CT/MRI/US Diagnostic Results : Impression Procedure: CT Hip no Contrast R EXAM: CT Right Lower Extremity Without Intravenous Contrast, Hip CLINICAL HISTORY: PAIN Notes: brought in by ambulance from home s/p fall. Pt reports falling out of bed and the mattress falling on top of her. Pt reporting right hip pain TECHNIQUE: Axial computed tomography images of the right hip without intravenous contrast. CTDI is 6.4 mGy and DLP is 212.5 mGy-cm. One or more of the following dose reduction techniques were used: automated exposure control, adjustment of the mA and/or kV according to patient size, use of iterative reconstruction technique. COMPARISON: CT abdomen and pelvis 04/13/2020. FINDINGS: No acute fracture or dislocation, specifically within the right hip. L5-S1 degenerative disc disease. No acute intra-pelvic findings. Persistent nonspecific urinary bladder wall thickening, stable. Partially visualized ventral hernia containing loop of bowel and omental fat. No evidence of mechanical bowel obstruction. Prominent nonspecific pelvic lymph nodes are again identified, without significant change. Midline anterior abdominal wall surgical incisional scar. Mild anasarca. IMPRESSION: 1. No acute fracture or dislocation. 2. Persistent urinary bladder wall thickening. Correlate for chronic cystitis. 3. Mild anasarca. Dictated By: Niru Neumann M.D. Electronically Signed By:Niru Neumann M.D. Signed Date/Time05/01/202056 CC: Adams Carter MD Last Vital Signs Date Time Temp Pulse Resp B/P (MAP) Pulse Ox O2 Delivery O2 Flow Rate FiO2 05/01/20 18:51 71 18 Room Air 05/01/20 18:51 98.6 125/84 98 Disposition: ADMITTED INPATIENT Condition: Critical Referrals: Cristian White MD (PCP) Adams Carter MD May 01, 2020 19:11
[2020-05-01 19:15] LABS: BASOPHILS % (AUTO) 1.7 % (0.0-2.0); EOSINOPHILS % (AUTO) 4.9 % (0.0-3.0); HEMATOCRIT 27.3 % (37.0-47.0); HEMOGLOBIN 8.9 G/DL (12.0-16.0); LYMPHOCYTES % (AUTO) 14.4 % (20.0-45.0); MEAN CORPUSCULAR VOLUME 89 FL (80-99); MONOCYTES % (AUTO) 8.1 % (1.0-10.0); PLATELET COUNT 169 K/UL (150-450); RED BLOOD COUNT 3.07 M/UL (4.20-5.40); RED CELL DISTRIBUTION WIDTH 13.2 % (11.6-14.8); WHITE BLOOD COUNT 6.3 K/UL (4.8-10.8)
[2020-05-01 19:50] LABS: ALANINE AMINOTRANSFERASE 29 U/L (12-78); ALBUMIN 3.4 G/DL (3.4-5.0); ALBUMIN/GLOBULIN RATIO 0.8 (1.0-2.7); ALKALINE PHOSPHATASE 88 U/L (46-116); ASPARTATE AMINO TRANSFERASE 42 U/L (15-37); BILIRUBIN,TOTAL 0.4 MG/DL (0.2-1.0); BLOOD UREA NITROGEN 122 mg/dL (7-18); CALCIUM 7.1 MG/DL (8.5-10.1); CARBON DIOXIDE 21 MMOL/L (21-32); CHLORIDE 88 MMOL/L (98-107); CREATININE 16.7 MG/DL (0.55-1.30); SODIUM 129 MMOL/L (136-145)
[2020-05-01 20:00] VITALS: BP 126/78
--- NOTE | 2020-05-01 20:35 | NUR ---
ED Nurse Note: Pt returned from imging, continues to c/o having severe right hip and knee pain at 8/10 and asking for more meds, informed, pt replaced on monitoring, v/s stable, denies chest pain or sob, will continue to monitor and prepare for admission.
--- NOTE | 2020-05-01 20:58 | Diagnostic Imaging Report ---
EXAM: CT Right Lower Extremity Without Intravenous Contrast, Hip CLINICAL HISTORY: PAIN Notes: brought in by ambulance from home s/p fall. Pt reports falling out of bed and the mattress falling on top of her. Pt reporting right hip pain TECHNIQUE: Axial computed tomography images of the right hip without intravenous contrast. CTDI is 6.4 mGy and DLP is 212.5 mGy-cm. One or more of the following dose reduction techniques were used: automated exposure control, adjustment of the mA and/or kV according to patient size, use of iterative reconstruction technique. COMPARISON: CT abdomen and pelvis 04/13/2020. FINDINGS: No acute fracture or dislocation, specifically within the right hip. L5-S1 degenerative disc disease. No acute intra-pelvic findings. Persistent nonspecific urinary bladder wall thickening, stable. Partially visualized ventral hernia containing loop of bowel and omental fat. No evidence of mechanical bowel obstruction. Prominent nonspecific pelvic lymph nodes are again identified, without significant change. Midline anterior abdominal wall surgical incisional scar. Mild anasarca. IMPRESSION: 1. No acute fracture or dislocation. 2. Persistent urinary bladder wall thickening. Correlate for chronic cystitis. 3. Mild anasarca.
[2020-05-01] MEDS ORDERED: Insulin Human Regular 100units/ml 3ml IV ONE (21:15)
[2020-05-01] MEDS ORDERED: Calcium Gluconate 1gm/10ml vial IVP ONE (21:15)
[2020-05-01] MEDS ORDERED: METOPROLOL SUCC50 MG ORAL (21:18)
[2020-05-01] MEDS ORDERED: WARFARIN SODIUM2 MG ORAL (21:18)
[2020-05-01] MEDS ORDERED: AMLODIPINE BESYL5 MG ORAL (21:18)
[2020-05-01] MEDS ORDERED: CALCIUM ACETAT667 M1 PO (21:18)
[2020-05-01] MEDS ORDERED: SENSIPAR30 MG ORAL (21:18)
[2020-05-01] MEDS ORDERED: MULTIVITAMINS1 EA11 ORAL (21:18)
[2020-05-01] MEDS ORDERED: HUMALOG100 UNIT/4 SUBQ (21:18)
--- NOTE | 2020-05-01 21:20 | NUR ---
ED Nurse Note: Pt with elevated potassium level, informed, new med ordersw recieved, pt medicated as ordered, continues to deny chest pain but states hip pain is worsening, pt extremity elevated with pillow support and pt repositioned very frequently for comfort, will continue to monitor and prepare for hospital admission, swabs collected and sent for admission.
[2020-05-01] MEDS ORDERED: Hydromorphone 0.5mg/0.5ml inj IVP ONE (21:30)
[2020-05-01] MEDS ORDERED: HYDROmorphone 1mg/ml Carpuject ONE (21:44)
[2020-05-01 21:45] VITALS: BP 141/72
--- NOTE | 2020-05-01 21:50 | NUR ---
ED Nurse Note: Pt has room for admission, report called to floor nurseFreddyRN, pt belongings list completed, med rec also and swabs collected for admission, pt IV site patent, pt being taken to floor unit via gurney with RN and ER-Tech with monitoring, nad noted during pt transfer to floor bed. pt also re-medicated for pain and meds effective.
--- NOTE | 2020-05-01 22:10 | NUR ---
NURSE NOTES: Pt transferred to floor from ED by 2 ED personnel. Patient AAOx4, able to verbalize needs. IV on right AC #20g, flushed and asymptomatic. with left upper arm AV shunt for HD. Reportedly missed HD today because pt was in ED. Patient verbalized 2/10 right hip pain, nonradiating, but relieved by rest and repositioning on her left side. Patient was given pain medications prior to transfer to the floor. quality assurance monitor body placed on pt. Patient's belonging list cross checked and signed. Oriented to hospital policies and protocol. Yellow socks placed. Fall and seizure precaution placed on pt. Safety measures initiated. Orders from primary MD noted and carried out. Call light placed within reach. Bed in lowest position, brakes engaged and bed alarm on. Will continue to monitor.
[2020-05-01] MEDS ORDERED: Bisacodyl EC 5mg tab ORAL PRN (23:15)
[2020-05-02] VITALS: BP 116/54
[2020-05-02 04:00] VITALS: BP 114/55
--- NOTE | 2020-05-02 05:27 | NUR ---
NURSE NOTES: Patient asleep. No complaints of pain at this time. No IVF running at this time. Still awaiting HD orders for today. Safety measures in place. Sign for left arm precaution placed at head of bed. Call light placed within reach. Will continue to monitor.
[2020-05-02] MEDS: HYDROcodone/Acetamin 5/325 tab ORAL PRN ×2 (06:23→20:05)
--- NOTE | 2020-05-02 06:37 | NUR ---
NURSE NOTES: Inpatient hemodialysis ordered. Consent signed. HD nurse aware.
[2020-05-02 06:47] LABS: BASOPHILS % (AUTO) 1.2 % (0.0-2.0); EOSINOPHILS % (AUTO) 6.1 % (0.0-3.0); HEMATOCRIT 25.9 % (37.0-47.0); HEMOGLOBIN 8.5 G/DL (12.0-16.0); LYMPHOCYTES % (AUTO) 15.5 % (20.0-45.0); MEAN CORPUSCULAR VOLUME 90 FL (80-99); MONOCYTES % (AUTO) 10.1 % (1.0-10.0); NEUTROPHILS % (AUTO) 67.2 % (45.0-75.0); PLATELET COUNT 137 K/UL (150-450); RED BLOOD COUNT 2.87 M/UL (4.20-5.40); RED CELL DISTRIBUTION WIDTH 13.1 % (11.6-14.8); WHITE BLOOD COUNT 5.5 K/UL (4.8-10.8)
[2020-05-02 07:12] LABS: ALBUMIN 3.2 G/DL (3.4-5.0); ALBUMIN/GLOBULIN RATIO 0.9 (1.0-2.7); BILIRUBIN,TOTAL 0.4 MG/DL (0.2-1.0); CALCIUM 6.8 MG/DL (8.5-10.1); CREATININE 17.5 MG/DL (0.55-1.30); POTASSIUM 5.5 MMOL/L (3.5-5.1)
--- NOTE | 2020-05-02 07:15 | NUR ---
NURSE NOTES: Pt received from Sergio STEPHENSON. Pt in bed resting, breakfast tray at bedside, no distress noted. bed low and locked, call light within reach.
--- NOTE | 2020-05-02 07:17 | NUR ---
NURSE HAND-OFF REPORT: Important Events on Shift:[New admit. HD scheduled today. HD nurse confirmed. Consent in chart. Home medications brought in with the patient surrendered to pharmacy. Security bag receipts on chart:[id number], [id number]] Patient Status: [FC] Diet: [Renal] Pending Orders: [Hemodialysis] Pending Results/Labs:[NA] Pending MD notification:[NA] Latest Vital Signs: Temperature 98.1 , Pulse 73 , B/P 114 /55 , Respiratory Rate 18 , O2 SAT 95 , Room Air, O2 Flow Rate . Vital Sign Comment: [] EKG Rhythm: Sinus Rhythm Rhythm change?: N MD Notified?: - MD Response: Latest Taylor Fall Score: 60 Fall Risk: High Risk Safety Measures: Call light Within Reach, Bed Alarm Zone 1, Side Rails Side Rails x2, Bed position Low and Locked. Fall Precautions: Yellow Socks Door Sign Patient Fall Education Report given to [SEEMA Dougherty].
[2020-05-02 08:00] VITALS: BP 102/56
[2020-05-02] MEDS: Docusate 100mg cap ORAL SCH ×3 (08:55→18:19)
[2020-05-02] MEDS: Sucralfate 1gm tab ORAL SCH ×4 (08:56→20:29)
[2020-05-02] MEDS: Aspirin EC 81mg tab ORAL SCH (08:56)
[2020-05-02] MEDS: sitaGLIPtin 25mg tab ORAL SCH (08:56)
[2020-05-02] MEDS: Sensipar 30mg Tab ORAL SCH (08:57)
[2020-05-02] MEDS ORDERED: Lisinopril 20mg tab ORAL SCH (09:00)
[2020-05-02] MEDS ORDERED: Renvela 800mg Pkt ORAL SCH (09:00)
[2020-05-02] MEDS ORDERED: Metoprolol Succinate XL 50mg tab ORAL SCH (09:00)
[2020-05-02] MEDS: Heparin 5000 units/ml inj SUBQ SCH ×2 (09:32→20:34)
--- NOTE | 2020-05-02 09:54 | Consultation ---
Consult Note Consult Note I am asked to evaluate the patient at the request of for dialysis management Known to me from her recent admission here at [facility] Emergency room note: 64-year-old female presents with right hip pain, right knee pain after head, no LOC did not hit her head, endorses sharp pain aggravated with movement alleviated rest severity is moderate, intermittent, patient was having difficulty ambulating without assistance, she was initially was to be transferred to the hospital in the morning however she refused transport, this event occurred in the morning Allergies: No Known Allergies (Unverified , 05/24/13) COVID-19 Screening Contact w/high risk pt: No Experienced COVID-19 symptoms?: No COVID-19 Testing performed PRODUCT DEVELOPMENT CARPENTER: No Past Medical History: No History, Except For Hx Cardiac Problems: Yes Hx Hypertension: Yes Hx Diabetes: Yes Hx Dialysis: Yes - , , Tuesday av graft left arm Hx Neurological Problems: Yes Hx Cerebrovascular Accident: Yes - 2011 Hx Seizures: Yes - reports last seizure 2018 Hx Weakness: Yes PHYSICAL EXAMINATION: VITAL SIGNS: Temperature 98.6, pulse 77, blood pressure 103/67. GENERAL APPEARANCE: Seems to be overweight. HEAD AND NECK: [place] conjunctivae. HEART: Normal rate. LUNGS: Clear. ABDOMEN: Soft and nontender. EXTREMITIES: No edema. NEUROLOGIC: She is awake, alert, responsive. LABORATORY AND DIAGNOSTIC DATA: A 12-lead EKG on 05/01/2020 showed normal sinus rhythm with inferior ischemia with T-wave inversion in leads III and aVF. White count of 5.5, hemoglobin 8.5, hematocrit 26, and platelet count 137. Sodium 129, potassium 5.5, BUN of 123, creatinine of 17.5, glucose of 83. Blood culture is pending. COVID-19 test negative. VRE and MRSA tests were negative. . . Assessment/Plan Contusion of hip, right End-stage renal disease, on hemodialysis Tuesday. Missed her last dialysis session. Presented with hyperkalemia History of anemia of chronic kidney disease History of hydronephrosis History of CVA Dialysis today as soon as possible for hyperkalemia Adjust blood pressure medication Epogen for anemia Blood sugar control Per orders Supa Gomes MD May 02, 2020 09:54
--- NOTE | 2020-05-02 09:56 | History & Physical ---
History and Physical History & Physicial Present Illness HPI The patient presents with complaint of Multiple falls and general weakness. She states she has had pain like this in the past when she had high potassium level. there is prior history of non compliance with HD. S She does still produce urine and denies dysuria or hematuria. She has had no fevers or chills. Patient is also diabetic. no fever or chills ROS: All 12 element of ROS reviewed. Allergies: Coded Allergies: No Known Allergies (Unverified , 05/24/13) Patient History Past Medical History: including DM, HTN, ESRD, Social History: Denies: smoking, alcohol use, drug use Social History Narrative Lives with her son and his family Meds and labs dated May 02 reviewed, including Pelvic CT scan Exam: Hx Gastrointestinal Problems: No Hx Dialysis: Yes - av graft left arm-(T-TH-S)LAST DIALYSIS - Hx Neurological Problems: Yes Hx Cerebrovascular Accident: Yes - 2011- Hx Weakness: Yes AT/NC, chest: clear, Hreat: S1S2 RR, Abd: soft, MS: No gross lateralized motor deficit, atrophied muscle, wide gate balance Medical Decision Making Diagnostic Impression: Primary Impression: Hyperkalemia with possible missed HD- Symptomatic ESRD (end stage renal disease) on dialysis Anemia N18.6 - End stage renal disease; D63.1 - Anemia in chronic kidney disease; Z99.2 - Dependence on renal dialysis DM Hyperlipidemia Imbalance- dependent for ADLS- multiple falls Nephrology and ID are consulted Pending UA, start IV abx Cristian White MD May 02, 2020 09:56
--- NOTE | 2020-05-02 09:57 | General Progress Note ---
Subjective Allergies: Coded Allergies: No Known Allergies (Unverified , 05/24/13) Objective Last 24 Hour Vital Signs Date Time Temp Pulse Resp B/P (MAP) Pulse Ox O2 Delivery O2 Flow Rate FiO2 05/02/20 09:00 Room Air 05/02/20 08:58 102/56 05/02/20 08:57 77 102/56 05/02/20 08:00 77 05/02/20 08:00 97.9 70 20 102/56 (71) 97 05/02/20 06:53 98.1 05/02/20 04:00 73 05/02/20 04:00 98.1 78 18 114/55 (74) 95 05/02/20 00:00 98.1 73 20 116/54 (74) 98 05/02/20 00:00 78 05/01/20 23:35 Room Air 05/01/20 22:31 83 05/01/20 22:05 98.6 85 17 141/72 100 Room Air 05/01/20 22:05 98.6 05/01/20 21:45 98.6 85 17 141/72 100 Room Air 05/01/20 20:19 98.6 05/01/20 20:00 98.6 78 18 126/78 100 Room Air 05/01/20 18:51 71 18 Room Air 05/01/20 18:51 98.6 18 125/84 98 Room Air 05/01/20 18:40 98.1 76 15 129/88 (102) 99 Room Air Intake and Output 05/01/20 05/02/20 19:00 07:00 Intake Total 100 ml Balance 100 ml Intake Oral 100 ml # Bowel Movements 1 Laboratory Tests 05/01/20 19:05: White Blood Count 6.3, Red Blood Count 3.07L, Hemoglobin 8.9L, Hematocrit 27.3L, Mean Corpuscular Volume 89, Mean Corpuscular Hemoglobin 29.0, Mean Corpuscular Hemoglobin Concent 32.7, Red Cell Distribution Width 13.2, Platelet Count 169, Mean Platelet Volume 7.2, Neutrophils (%) (Auto) 71.0, Lymphocytes (%) (Auto) 14.4L, Monocytes (%) (Auto) 8.1, Eosinophils (%) (Auto) 4.9H, Basophils (%) (Auto) 1.7, Prothrombin Time 10.8, Prothromb Time International Ratio 1.0, Activated Partial Thromboplast Time 25, Sodium Level 129L, Potassium Level 6.0*H , Chloride Level 88L, Carbon Dioxide Level 21, Blood Urea Nitrogen 122H, Creatinine 16.7H, Estimat Glomerular Filtration Rate 2.7, Glucose Level 104, Calcium Level 7.1L, Total Bilirubin 0.4, Aspartate Amino Transf (AST/SGOT) 42H, Alanine Aminotransferase (ALT/SGPT) 29, Alkaline Phosphatase 88, Total Protein 7.7, Albumin 3.4, Globulin 4.3, Albumin/Globulin Ratio 0.8L 05/02/20 06:03: White Blood Count 5.5, Red Blood Count 2.87L, Hemoglobin 8.5L, Hematocrit 25.9L, Mean Corpuscular Volume 90, Mean Corpuscular Hemoglobin 29.5, Mean Corpuscular Hemoglobin Concent 32.7, Red Cell Distribution Width 13.1, Platelet Count 137L, Mean Platelet Volume 6.6, Neutrophils (%) (Auto) 67.2, Lymphocytes (%) (Auto) 15.5L, Monocytes (%) (Auto) 10.1H, Eosinophils (%) (Auto) 6.1H, Basophils (%) (Auto) 1.2, Sodium Level 129L, Potassium Level 5.5H, Chloride Level 89L, Carbon Dioxide Level 19L, Blood Urea Nitrogen 123H, Creatinine 17.5H, Estimat Glomerular Filtration Rate 2.4, Glucose Level 83, Calcium Level 6.8L, Total Bilirubin 0.4, Aspartate Amino Transf (AST/SGOT) 23, Alanine Aminotransferase (ALT/SGPT) 33, Alkaline Phosphatase 80, Total Protein 6.8, Albumin 3.2L, Globulin 3.6, Albumin/Globulin Ratio 0.9L, Anion Gap 21H Height (Feet): 5 Height (Inches): 2.00 Weight (Pounds): 166 Assessment/Plan Assessment/Plan: S: I am ok O: appears weak, frail, imbalance Exam: Hx Gastrointestinal Problems: No Hx Dialysis: Yes - av graft left arm-(T-TH-S)LAST DIALYSIS - Hx Neurological Problems: Yes Hx Cerebrovascular Accident: Yes - 2011- Hx Weakness: Yes AT/NC, chest: clear, Hreat: S1S2 RR, Abd: soft, MS: No gross lateralized motor deficit, atrophied muscle, wide gate balance , Neuro: AOX2, declined memory, Medical Decision Making Diagnostic Impression: Primary Impression: Hyperkalemia with possible missed HD- Symptomatic ESRD (end stage renal disease) on dialysis Anemia N18.6 - End stage renal disease; D63.1 - Anemia in chronic kidney disease; Z99.2 - Dependence on renal dialysis DM Hyperlipidemia Imbalance- dependent for ADLS- multiple falls Will monitor K HD per NephCristian Payne MD May 02, 2020 09:57
[2020-05-02] MEDS ORDERED: HydrALAZINE 25mg tab ORAL PRN (10:15)
[2020-05-02 10:32] LABS: FERRITIN 952 NG/ML (8-388)
--- NOTE | 2020-05-02 10:55 | NUR ---
P.T Note: P.T evaluation completed and tx initiated. Please refer to P.T evaluation for current functional status. Pt is alert, O x 4, no c/o pain but feeling generally weak. Pt currently require MIN A X 1 for bed mobility , transfers and gait/ambulation activities using the FWW. Vitals were stable althrough out P.T eval/tx. Pt should benefit from skilled P.T service to increase her strength to increase mobility independence and safety. Recommend home P.T and FWW at [facility]. Addendum: 05/02/20 at 1059 by ROSSI GILL PT Pt is cleared for OOB activities with nursing assistance.
[2020-05-02 10:59] LABS: % IRON SATURATION 30 % (15-50); IRON 48 ug/dL (50-175); TOTAL IRON BINDING CAPACITY 161 ug/dL (250-450)
--- NOTE | 2020-05-02 11:22 | NUR ---
NURSE NOTES: pt being dialyzed went into afib/aflutter. tachy. yarn wrapper notified and adjusted her equipment. Pt calm and comfortable. Notified Cindy who told me to inform Deanne. Notified Dr. Alicea.
[2020-05-02 12:00] VITALS: BP 102/55
--- NOTE | 2020-05-02 12:47 | Cardiac Electrophysiology PN ---
Subjective Subjective [id number] Objective Last 24 Hour Vital Signs Date Time Temp Pulse Resp B/P (MAP) Pulse Ox O2 Delivery O2 Flow Rate FiO2 05/02/20 09:00 Room Air 05/02/20 08:58 102/56 05/02/20 08:57 77 102/56 05/02/20 08:00 77 05/02/20 08:00 97.9 70 20 102/56 (71) 97 05/02/20 06:53 98.1 05/02/20 04:00 73 05/02/20 04:00 98.1 78 18 114/55 (74) 95 05/02/20 00:00 98.1 73 20 116/54 (74) 98 05/02/20 00:00 78 05/01/20 23:35 Room Air 05/01/20 22:31 83 05/01/20 22:05 98.6 85 17 141/72 100 Room Air 05/01/20 22:05 98.6 05/01/20 21:45 98.6 85 17 141/72 100 Room Air 05/01/20 20:19 98.6 05/01/20 20:00 98.6 78 18 126/78 100 Room Air 05/01/20 18:51 71 18 Room Air 05/01/20 18:51 98.6 18 125/84 98 Room Air 05/01/20 18:40 98.1 76 15 129/88 (102) 99 Room Air Intake and Output 05/01/20 05/02/20 19:00 07:00 Intake Total 100 ml Balance 100 ml Intake Oral 100 ml # Bowel Movements 1 Laboratory Tests Test 05/01/20 19:05 05/02/20 06:03 White Blood Count 6.3 K/UL (4.8-10.8) 5.5 K/UL (4.8-10.8) Red Blood Count 3.07 M/UL (4.20-5.40) L 2.87 M/UL (4.20-5.40) L Hemoglobin 8.9 G/DL (12.0-16.0) L 8.5 G/DL (12.0-16.0) L Hematocrit 27.3 % (37.0-47.0) L 25.9 % (37.0-47.0) L Mean Corpuscular Volume 89 FL (80-99) 90 FL (80-99) Mean Corpuscular Hemoglobin 29.0 PG (27.0-31.0) 29.5 PG (27.0-31.0) Mean Corpuscular Hemoglobin Concent 32.7 G/DL (32.0-36.0) 32.7 G/DL (32.0-36.0) Red Cell Distribution Width 13.2 % (11.6-14.8) 13.1 % (11.6-14.8) Platelet Count 169 K/UL (150-450) 137 K/UL (150-450) L Mean Platelet Volume 7.2 FL (6.5-10.1) 6.6 FL (6.5-10.1) Neutrophils (%) (Auto) 71.0 % (45.0-75.0) 67.2 % (45.0-75.0) Lymphocytes (%) (Auto) 14.4 % (20.0-45.0) L 15.5 % (20.0-45.0) L Monocytes (%) (Auto) 8.1 % (1.0-10.0) 10.1 % (1.0-10.0) H Eosinophils (%) (Auto) 4.9 % (0.0-3.0) H 6.1 % (0.0-3.0) H Basophils (%) (Auto) 1.7 % (0.0-2.0) 1.2 % (0.0-2.0) Prothrombin Time 10.8 SEC (9.30-11.50) Prothromb Time International Ratio 1.0 (0.9-1.1) Activated Partial Thromboplast Time 25 SEC (23-33) Sodium Level 129 MMOL/L (136-145) L 129 MMOL/L (136-145) L Potassium Level 6.0 MMOL/L (3.5-5.1) *H 5.5 MMOL/L (3.5-5.1) H Chloride Level 88 MMOL/L (98-107) L 89 MMOL/L (98-107) L Carbon Dioxide Level 21 MMOL/L (21-32) 19 MMOL/L (21-32) L Blood Urea Nitrogen 122 mg/dL (7-18) H 123 mg/dL (7-18) H Creatinine 16.7 MG/DL (0.55-1.30) H 17.5 MG/DL (0.55-1.30) H Estimat Glomerular Filtration Rate 2.7 mL/min (>60) 2.4 mL/min (>60) Glucose Level 104 MG/DL (74-106) 83 MG/DL (74-106) Calcium Level 7.1 MG/DL (8.5-10.1) L 6.8 MG/DL (8.5-10.1) L Total Bilirubin 0.4 MG/DL (0.2-1.0) 0.4 MG/DL (0.2-1.0) Aspartate Amino Transf (AST/SGOT) 42 U/L (15-37) H 23 U/L (15-37) Alanine Aminotransferase (ALT/SGPT) 29 U/L (12-78) 33 U/L (12-78) Alkaline Phosphatase 88 U/L (46-116) 80 U/L (46-116) Total Protein 7.7 G/DL (6.4-8.2) 6.8 G/DL (6.4-8.2) Albumin 3.4 G/DL (3.4-5.0) 3.2 G/DL (3.4-5.0) L Globulin 4.3 g/dL 3.6 g/dL Albumin/Globulin Ratio 0.8 (1.0-2.7) L 0.9 (1.0-2.7) L Anion Gap 21 mmol/L (5-15) H Hemoglobin A1c 6.3 % (4.3-6.0) H Phosphorus Level 13.3 MG/DL (2.5-4.9) H Iron Level 48 ug/dL (50-175) L Total Iron Binding Capacity 161 ug/dL (250-450) L Percent Iron Saturation 30 % (15-50) Unsaturated Iron Binding 113 ug/dL (112-346) Ferritin 952 NG/ML (8-388) H Vitamin B12 Level 1326 PG/ML (193-986) H Folate 29.4 NG/ML (8.6-58.9) Microbiology Date/Time Source Procedure Growth Status 05/01/20 21:10 Rectum Received 05/01/20 19:15 Nasopharynx SARS-CoV-2 RdRp Gene Assay - Final Complete Toluie,Jayjay MD May 02, 2020 12:47
[2020-05-02] MEDS: Metoprolol Succinate XL 50mg tab ORAL SCH ×3 (13:00→20:30)
--- NOTE | 2020-05-02 13:57 | NUR ---
CASE MANAGEMENT:REVIEW 64 YR OLD FEMALE BIBA FROM HOME CC: FELL OUT OF BED. C/O RT HIP PAIN PMH: ESRD SI: RT HIP CONTUSION. HYPERKALEMIA 98.1 76 15 129/88 99% ON RA K+6.0 BUN+122 CR+16.7 IS: IV ZOFRAN IV MORPHINE IV CA GLUCONATE IV INSULIN IV DILAUDID XRAY HIP AND KNEE CT HIP AND PELVIS CHEST XRAY : TO TELE[facility]RY [facility]
[2020-05-02] MEDS: Renvela 800mg Pkt ORAL SCH ×2 (14:18→18:19)
--- NOTE | 2020-05-02 15:30 | Consultation ---
DATE OF CONSULTATION: 05/02/2020 CARDIOLOGY CONSULTATION CONSULTING PHYSICIAN: Jayjay Alicea MD REFERRING PHYSICIAN: Cristian White MD REASON FOR CONSULTATION: Atrial fibrillation with rapid ventricular response. HISTORY OF PRESENT ILLNESS: Patient is a 64-year-old lady with hypertension, end-stage renal disease on hemodialysis. While getting hemodialysis, developed atrial fibrillation with rapid ventricular response with heart rate of 130s. At my request, underwent echocardiogram showed ejection fraction of 60%. Patient was admitted for multiple falls and generalized weakness. She felt that she was feeling like potassium was high. Patient has history of noncompliance with hemodialysis in the past and does not produce any urine. Patient is also diabetic, but denies any fever or chills. REVIEW OF SYSTEMS: Negative other than what is mentioned in the history of present illness. PAST MEDICAL HISTORY: Hypertension, diabetes, end-stage renal disease on hemodialysis. FAMILY HISTORY: Noncontributory. SOCIAL HISTORY: Lives with her son and his family. Does not smoke or drink alcohol. PHYSICAL EXAMINATION: VITAL SIGNS: Show blood pressure of 102/56, pulse 77, respirations 18, temperature 97.9. HEAD AND NECK: Showed no JVD. LUNGS: Coarse rhonchi. CARDIOVASCULAR: Shows irregularly irregular S1 and S2 with no gallop or murmur. ABDOMEN: Soft. EXTREMITIES: AV shunt in the left arm. LABORATORY AND DIAGNOSTIC DATA: A 12-lead EKG on 05/01/2020 showed normal sinus rhythm with inferior ischemia with T-wave inversion in leads III and aVF. White count of 5.5, hemoglobin 8.5, hematocrit 26, and platelet count 137. Sodium 129, potassium 5.5, BUN of 123, creatinine of 17.5, glucose of 83. ASSESSMENT AND PLAN: 1. Atrial fibrillation with rapid ventricular response. Patient is on Toprol-XL 50 mg daily increased to 50 mg b.i.d. and discontinue amlodipine. Try to get the heart rate better controlled. 2. Hypertension. We will maximize beta-olimpia with metoprolol. Patient also would need anticoagulation with atrial fibrillation. Start patient on Eliquis 2.5 mg b.i.d. 3. End-stage renal disease, on hemodialysis. 4. Hyperlipidemia on Lipitor. 5. Anemia, on Epogen. 6. Seizures, on Keppra. Thank you very much for allowing me to participate in the care of this patient. Please do not hesitate to contact me for any questions regarding my evaluation. Jayjay Alicea M.D. DR: AGUSTINA JOB#: [id number] CC:
--- NOTE | 2020-05-02 15:45 | NUR ---
NURSE NOTES: reported to dr smith, troponin 0.286
[2020-05-02 16:00] VITALS: BP 113/62
--- NOTE | 2020-05-02 17:47 | Diagnostic Imaging Report ---
Indication: Right hip pain status post fall Technique: 2 views of the right hip Comparison: none Findings: No acute fractures. No dislocations. The joint spaces are preserved Impression: Negative
--- NOTE | 2020-05-02 17:49 | Diagnostic Imaging Report ---
Indication: Right knee pain Technique: 3 views of the right knee Comparison: None Findings: There is a large suprapatellar effusion. There is narrowing of the patellofemoral joint compartment. The medial lateral joint compartment spaces are preserved. No acute fractures. No dislocations. There are extensive vascular calcifications Impression: Positive for large joint effusion Degenerative changes, as described No acute bony trauma
--- NOTE | 2020-05-02 17:50 | Diagnostic Imaging Report ---
Indication: Chest pain, status post fall Technique: One view of the chest Comparison: 04/13/2020 Findings: The heart remains enlarged. There is mild interstitial congestion. The pleural spaces are clear. No pneumothorax. Patient's chin obscures the upper mediastinum Impression: Cardiomegaly Mild bilateral interstitial congestion
--- NOTE | 2020-05-02 17:56 | NUR ---
NURSE HAND-OFF REPORT: Important Events on Shift:[During dialysis pt went into afib and became tachy. Dr. Smith informed and stat 2d echo and 12 lead ekg done. Pt on metoprolol but last dose held as Bp below parameters. No complaint of chest pain on shift. post dialysis quite drowsy, still arouseable but wanted to sleep] Patient Status: [in bed resting] Diet: [RENAL] Pending Orders: [] Pending Results/Labs:[] Pending MD notification:[WAITING TO HEAR BACK from Dr. smith re elevated tropnin] Latest Vital Signs: Temperature 97.7 , Pulse 127 , B/P 113 /62 , Respiratory Rate 20 , O2 SAT 95 , Room Air, O2 Flow Rate . Vital Sign Comment: [normal besides tachy hr] EKG Rhythm: Atrial Fibrillation Rhythm change?: N MD Notified?: Y -Dr. Deanne ARMSTRONG Response: Stat Echo Latest Taylor Fall Score: 60 Fall Risk: High Risk Safety Measures: Call light Within Reach, Bed Alarm Zone 1, Side Rails Side Rails x3, Bed position Low and Locked. Fall Precautions: Patient Fall Education Report given to [pending RN assignment]. Addendum: 05/02/20 at 1920 by Ladonna Power RN Report given to Sergio STEPHENSON, pt in bed stable, states she has some hip pain, Nora will address
--- NOTE | 2020-05-02 19:30 | NUR ---
NURSE NOTES: Received patient from SEEMA Dougherty. Patient asleep, but arousable. AAOx4, able to verbalize needs. On room air, saturating well. IV site on Right AC, flushed and intact. Not in acute distress. Had HD today, 1L taken out. Dr. Alicea now on the case for episode of afib and ST during HD. Troponin to be trended today. Still with occassional complaints of right hip pain, but still able to move about in bed, with assistance and with caution. Bed in lowest position, brakes engaged and bed alarm on. Call light placed within reach. Still with seizure precautions. Will continue to monitor.
[2020-05-02 20:00] VITALS: BP 119/75
--- NOTE | 2020-05-02 20:27 | NUR ---
NURSE NOTES: Left a message with Dr. Alicea regarding patient's latest (2nd) troponin: 3.071. Pateint's currently on Heparin 5000 subq BID. Awaiting call back for new orders, if any. Patient is stable. No complaints of radiating chest pain. Will continue to monitor.
[2020-05-02] MEDS: Epoetin Alfa-EPBX(ESRD on dialysis)10,000 unit/ml vial SUBQ SCH (20:31)
--- NOTE | 2020-05-02 21:16 | NUR ---
NURSE NOTES: Dr. Alicea paged back and ordered for ECG tomorrow. Will note and carry out.
[2020-05-03] VITALS: BP 115/61
[2020-05-03 04:00] VITALS: BP 103/54
--- NOTE | 2020-05-03 05:11 | NUR ---
NURSE NOTES: Patient had 1x episode of vomiting. Pt cleaned and assessed. BP: 100/53; HR: 75; RR: 18; SpO2: 98%; T: 98.1. Patient verbalized relief after vomiting. Patient assisted back to bed. Seen resting. Will continue to monitor.
--- NOTE | 2020-05-03 07:33 | NUR ---
NURSE HAND-OFF REPORT: Important Events on Shift:[1L taken out during HD yesterday. Had 1x of vomiting during the shift. Patient verbalized feeling of relief after episode. Only asked for pain medicine once.] Patient Status: [FC] Diet: [Renal diet] Pending Orders: [] Pending Results/Labs:[] Pending MD notification:[] Latest Vital Signs: Temperature 98.0 , Pulse 74 , B/P 103 /54 , Respiratory Rate 20 , O2 SAT 98 , Room Air, O2 Flow Rate . Vital Sign Comment: [] EKG Rhythm: Sinus Rhythm Rhythm change?: N MD Notified?: Norma Alicea MD Response: Stat Echo Latest Taylor Fall Score: 60 Fall Risk: High Risk Safety Measures: Call light Within Reach, Bed Alarm Zone 1, Side Rails Side Rails x3, Bed position Low and Locked. Fall Precautions: Patient Fall Education Report given to [MALATHI Walton].
--- NOTE | 2020-05-03 07:35 | NUR ---
NURSE NOTES: RECEIVED PATIENT A/A/OX4 IN BED LYING CALM AND COMFORTABLE. AROUSABLE BY NAME AND NO ACUTE RESP DISTRESS NOTED. NO C/O PAIN/DISCOMFORT NOTED. TOLERATED FOOD INTAKE WELL. MILKA AV SHUNT INPLACED. BRUIT AND THRILL FELT ON PALPATION. KEPT HOB ELEVATED. SKIN INSTALLER INPLACED. PIV PATENT AND INTACT. NO ACUTE RESP DISTRESS NOTED. KEPT BED IN THE LOWEST POSITION. SIDERAILS ARE UPX3. CALL LIGHT IS WITHIN EASY REACH. BED ALARM AND LOCK MODE @ ALL TIMES. WILL CONT TO MONITOR.
[2020-05-03 08:00] VITALS: BP 96/53
[2020-05-03] MEDS: Renvela 800mg Pkt ORAL SCH ×3 (08:35→17:05)
[2020-05-03] MEDS: Aspirin EC 81mg tab ORAL SCH (08:35)
[2020-05-03] MEDS: sitaGLIPtin 25mg tab ORAL SCH (08:35)
[2020-05-03] MEDS: Sensipar 30mg Tab ORAL SCH (08:36)
[2020-05-03] MEDS: Sucralfate 1gm tab ORAL SCH ×2 (08:36→17:05)
[2020-05-03] MEDS: Metoprolol Succinate XL 50mg tab ORAL SCH (08:36)
[2020-05-03] MEDS: Docusate 100mg cap ORAL SCH ×3 (08:37→17:05)
[2020-05-03] MEDS: Heparin 5000 units/ml inj SUBQ SCH ×2 (08:43→21:00)
[2020-05-03 09:20] LABS: HEMATOCRIT 26.2 % (37.0-47.0); HEMOGLOBIN 8.3 G/DL (12.0-16.0); LYMPHOCYTES % (AUTO) 14.2 % (20.0-45.0); MEAN CORPUSCULAR VOLUME 92 FL (80-99); MONOCYTES % (AUTO) 9.8 % (1.0-10.0); PLATELET COUNT 119 K/UL (150-450); RED BLOOD COUNT 2.84 M/UL (4.20-5.40); RED CELL DISTRIBUTION WIDTH 12.7 % (11.6-14.8); WHITE BLOOD COUNT 5.1 K/UL (4.8-10.8)
[2020-05-03 09:47] LABS: ALANINE AMINOTRANSFERASE 36 U/L (12-78); ALBUMIN 3.1 G/DL (3.4-5.0); ALBUMIN/GLOBULIN RATIO 0.8 (1.0-2.7); ALKALINE PHOSPHATASE 80 U/L (46-116); ANION GAP 13 mmol/L (5-15); ASPARTATE AMINO TRANSFERASE 38 U/L (15-37); BILIRUBIN,TOTAL 0.4 MG/DL (0.2-1.0); BLOOD UREA NITROGEN 69 mg/dL (7-18); CALCIUM 8.2 MG/DL (8.5-10.1); CARBON DIOXIDE 27 MMOL/L (21-32); CHLORIDE 96 MMOL/L (98-107); CREATININE 11.8 MG/DL (0.55-1.30); GAMMA GLUTAMYL TRANSPEPTIDASE 15 U/L (5-85); PHOSPHORUS 6.9 MG/DL (2.5-4.9); POTASSIUM 4.5 MMOL/L (3.5-5.1); SODIUM 136 MMOL/L (136-145)
--- NOTE | 2020-05-03 10:35 | NUR ---
NURSE NOTES: MADE DR OJEDA AWARE OF TROP 5.376 TODAY. AWAITING FOR A CALL BACK. WILL CONT TO MONITOR Addendum: 05/03/20 at 1228 by NATY HERNANDEZ LVN NURSE NOTES: NEW ORDER OBTAINED AND CARRIED OUT. WILL CONT TO MONITOR.
--- NOTE | 2020-05-03 11:53 | Nephrology Progress Note ---
Assessment/Plan Problem List: (1) Hyperkalemia (2) Anemia in chronic kidney disease (3) ESRD (end stage renal disease) on dialysis (4) CVA (cerebrovascular accident) Assessment: By history (5) Coronary artery disease Assessment: Rising troponin I Assessment Contusion of hip, right End-stage renal disease, on hemodialysis Tuesday. Missed her last dialysis session. Presented with hyperkalemia History of anemia of chronic kidney disease History of hydronephrosis History of CVA Plan May 03: Labs and medication list reviewed. Blood pressure hovering around 90 systolic. Will cut down on Lopressor dose. Increased PhosLo to 2 tablets 3 times daily. Hemodialysis tomorrow. BP support with albumin. Continue per c ardiology advice. 1 dose of Plavix given. Questionable need for heparin drip. May 02: Dialysis today as soon as possible for hyperkalemia, Adjust blood pressure medication Epogen for anemia Blood sugar control Per orders Subjective ROS Limited/Unobtainable: No Constitutional: Reports: malaise Objective Objective Last 24 Hour Vital Signs Date Time Temp Pulse Resp B/P (MAP) Pulse Ox O2 Delivery O2 Flow Rate FiO2 05/03/20 08:36 72 96/53 05/03/20 08:00 71 05/03/20 08:00 98.8 72 18 96/53 (67) 99 05/03/20 04:00 98.0 74 20 103/54 (70) 98 05/03/20 04:00 75 05/03/20 00:00 115 05/03/20 00:00 97.5 112 20 115/61 (79) 96 05/02/20 21:00 Room Air 05/02/20 20:35 97.7 05/02/20 20:30 113 119/75 05/02/20 20:00 123 05/02/20 20:00 97.7 113 20 119/75 (90) 96 05/02/20 16:00 127 05/02/20 16:00 97.7 119 20 113/62 (79) 95 05/02/20 13:00 114 99/57 05/02/20 12:00 97.7 119 20 102/55 (71) 97 05/02/20 12:00 124 Intake and Output 05/02/20 05/03/20 19:00 07:00 Intake Total 236 ml 200 ml Output Total 1000 ml 50 ml Balance -764 ml 150 ml Intake Oral 236 ml 200 ml Output Emesis 50 ml Hemodialysis UF 1000 ml # Voids 1 # Bowel Movements 1 1 Laboratory Tests 05/02/20 14:40: Troponin I 0.286H 05/02/20 19:10: Troponin I 3.071H 05/03/20 08:50: Troponin I 5.981H, White Blood Count 5.1, Red Blood Count 2.84L, Hemoglobin 8.3L , Hematocrit 26.2L, Mean Corpuscular Volume 92, Mean Corpuscular Hemoglobin 29 .3, Mean Corpuscular Hemoglobin Concent 31.8L, Red Cell Distribution Width 12.7, Platelet Count 119L, Mean Platelet Volume 7.0, Neutrophils (%) (Auto) 73.0, Lymphocytes (%) (Auto) 14.2L, Monocytes (%) (Auto) 9.8, Eosinophils (%) (Auto) 2.0, Basophils (%) (Auto) 1.0, Sodium Level 136, Potassium Level 4.5, Chloride Level 96L, Carbon Dioxide Level 27, Anion Gap 13, Blood Urea Nitrogen 69H, Creatinine 11.8H, Estimat Glomerular Filtration Rate 3.9, Glucose Level 134H, Uric Acid 5.6, Calcium Level 8.2#L, Phosphorus Level 6.9H, Magnesium Level 2.8H, Total Bilirubin 0.4, Gamma Glutamyl Transpeptidase 15, Aspartate Amino Transf (AST/SGOT) 38H, Alanine Aminotransferase (ALT/SGPT) 36, Alkaline Phosphatase 80, C-Reactive Protein, Quantitative 3.2H, Pro-B-Type Natriuretic Peptide > [id number], Total Protein 6.9, Albumin 3.1L, Globulin 3.8, Albumin/Globulin Ratio 0.8L, Thyroid Stimulating Hormone (TSH) 1.278 Height (Feet): 5 Height (Inches): 2.00 Weight (Pounds): 166 General Appearance: no apparent distress Cardiovascular: normal rate Respiratory/Chest: decreased breath sounds Abdomen: soft Supa Gomes MD May 03, 2020 11:53
[2020-05-03 12:06] VITALS: BP 98/54
--- NOTE | 2020-05-03 12:39 | NUR ---
NURSE NOTES: EKG RESULT CONVEYED TO DR OJEDA. PATIENT IS ABLE TO FEED SELF INDEPENDENTLY. NO ACUTE RESP DISTRESS NOTED. WILL CONT TO MONITOR.
--- NOTE | 2020-05-03 13:00 | NUR ---
NURSE NOTES: CALLED [facility] AND SPOKE WITH LORELEI RE: HD FOR TOMORROW. AWAITS FOR [facility]NG TO CALL BACK. Addendum: 05/03/20 at 1737 by NATY HERNANDEZ LVN SPOKE WITH YOUNG, ANALIA FOR CONFIRMATION HD TOMORROW.
[2020-05-03 13:08] LABS: CHOLESTEROL 174 MG/DL (< 200); HDL CHOLESTEROL 39 MG/DL (40-60); TRIGLYCERIDES 97 MG/DL (30-150)
--- NOTE | 2020-05-03 13:21 | Cardiac Electrophysiology PN ---
Assessment/Plan Assessment/Plan 1. Atrial fibrillation with rapid ventricular response. Converted to SR. Toprol-XL 50 mg b.i.d. changed to 25 bid in view of BP in 90s. On Eliquis 2.5 mg b.i.d. 2. NSTEMI Troponin 0.3> 3.o > 6. No CP on Aspirin, Plavix, Toprol and Lipitor ECGs only Ns ST-T changes. Repeat troponins 3. Hypertension. Toprol 25 bid. 4. End-stage renal disease, on hemodialysis. 5. Hyperlipidemia on Lipitor. 6. Anemia, on Epogen. 7. Seizures, on Keppra. DW Dr. Gomes Subjective Subjective No CP or SOB despite the rising troponins. Converted to SR this AM. Objective Last 24 Hour Vital Signs Date Time Temp Pulse Resp B/P (MAP) Pulse Ox O2 Delivery O2 Flow Rate FiO2 05/03/20 12:06 97.9 70 18 98/54 (69) 95 05/03/20 09:00 Room Air 05/03/20 08:36 72 96/53 05/03/20 08:00 71 05/03/20 08:00 98.8 72 18 96/53 (67) 99 05/03/20 04:00 98.0 74 20 103/54 (70) 98 05/03/20 04:00 75 05/03/20 00:00 115 05/03/20 00:00 97.5 112 20 115/61 (79) 96 05/02/20 21:00 Room Air 05/02/20 20:35 97.7 05/02/20 20:30 113 119/75 05/02/20 20:00 123 05/02/20 20:00 97.7 113 20 119/75 (90) 96 05/02/20 16:00 127 05/02/20 16:00 97.7 119 20 113/62 (79) 95 Intake and Output 05/02/20 05/03/20 19:00 07:00 Intake Total 236 ml 200 ml Output Total 1000 ml 50 ml Balance -764 ml 150 ml Intake Oral 236 ml 200 ml Output Emesis 50 ml Hemodialysis UF 1000 ml # Voids 1 # Bowel Movements 1 1 Laboratory Tests Test 05/02/20 14:40 05/02/20 19:10 05/03/20 08:50 Troponin I 0.286 ng/mL (0.000-0.056) 3.071 ng/mL (0.000-0.056) 5.981 ng/mL (0.000-0.056) White Blood Count 5.1 K/UL (4.8-10.8) Red Blood Count 2.84 M/UL (4.20-5.40) L Hemoglobin 8.3 G/DL (12.0-16.0) L Hematocrit 26.2 % (37.0-47.0) L Mean Corpuscular Volume 92 FL (80-99) Mean Corpuscular Hemoglobin 29.3 PG (27.0-31.0) Mean Corpuscular Hemoglobin Concent 31.8 G/DL (32.0-36.0) L Red Cell Distribution Width 12.7 % (11.6-14.8) Platelet Count 119 K/UL (150-450) L Mean Platelet Volume 7.0 FL (6.5-10.1) Neutrophils (%) (Auto) 73.0 % (45.0-75.0) Lymphocytes (%) (Auto) 14.2 % (20.0-45.0) L Monocytes (%) (Auto) 9.8 % (1.0-10.0) Eosinophils (%) (Auto) 2.0 % (0.0-3.0) Basophils (%) (Auto) 1.0 % (0.0-2.0) Sodium Level 136 MMOL/L (136-145) Potassium Level 4.5 MMOL/L (3.5-5.1) Chloride Level 96 MMOL/L (98-107) L Carbon Dioxide Level 27 MMOL/L (21-32) Anion Gap 13 mmol/L (5-15) Blood Urea Nitrogen 69 mg/dL (7-18) H Creatinine 11.8 MG/DL (0.55-1.30) H Estimat Glomerular Filtration Rate 3.9 mL/min (>60) Glucose Level 134 MG/DL (74-106) H Uric Acid 5.6 MG/DL (2.6-7.2) Calcium Level 8.2 MG/DL (8.5-10.1) #L Phosphorus Level 6.9 MG/DL (2.5-4.9) H Magnesium Level 2.8 MG/DL (1.8-2.4) H Total Bilirubin 0.4 MG/DL (0.2-1.0) Gamma Glutamyl Transpeptidase 15 U/L (5-85) Aspartate Amino Transf (AST/SGOT) 38 U/L (15-37) H Alanine Aminotransferase (ALT/SGPT) 36 U/L (12-78) Alkaline Phosphatase 80 U/L (46-116) C-Reactive Protein, Quantitative 3.2 mg/dL (0.00-0.90) H Pro-B-Type Natriuretic Peptide > 66007 pg/mL (0-125) H Total Protein 6.9 G/DL (6.4-8.2) Albumin 3.1 G/DL (3.4-5.0) L Globulin 3.8 g/dL Albumin/Globulin Ratio 0.8 (1.0-2.7) L Triglycerides Level 97 MG/DL (30-150) Cholesterol Level 174 MG/DL (< 200) LDL Cholesterol 108 mg/dL (<100) H HDL Cholesterol 39 MG/DL (40-60) L Cholesterol/HDL Ratio 4.5 (3.3-4.4) H Thyroid Stimulating Hormone (TSH) 1.278 uiU/mL (0.358-3.740) Microbiology Date/Time Source Procedure Growth Status 05/01/20 21:10 Rectum Received 05/01/20 19:15 Nasopharynx SARS-CoV-2 RdRp Gene Assay - Final Complete Objective HEAD AND NECK: Showed no JVD. LUNGS: Coarse rhonchi. CARDIOVASCULAR: Shows irregularly irregular S1 and S2 with no gallop or murmur. ABDOMEN: Soft. EXTREMITIES: AV shunt in the left arm. Jayjay Alicea MD May 03, 2020 13:21
[2020-05-03 15:47] VITALS: BP 94/52
--- NOTE | 2020-05-03 17:14 | Consultation ---
DATE OF CONSULTATION: 05/03/2020 PULMONARY CONSULTATION HISTORY OF PRESENT ILLNESS: This is a 64-year-old female with a history of ESRD, on dialysis, who was admitted to the hospital with rapid AFib with RVR. The patient was admitted for this condition as well as has a history of multiple falls. At this time, the patient states she is feeling better. PAST MEDICAL HISTORY: ESRD, on dialysis, hypertension, diabetes mellitus. HOME MEDICATIONS: Reviewed and reconciled in chart. REVIEW OF SYSTEMS: Denies any headaches, hematemesis, melena, hematochezia, night sweats, or weight loss. PHYSICAL EXAMINATION: GENERAL: Reveals a 64-year-old female. VITAL SIGNS: Blood pressure 115/70, heart rate 112, respirations , afebrile. HEENT: Unremarkable. CHEST: Clear breath sounds bilaterally. ABDOMEN: Soft. EXTREMITIES: There is no edema. LABORATORY AND DIAGNOSTIC DATA: Laboratory testing shows hemoglobin 8.3, otherwise normal CBC. BMP notable for creatinine 11.8. COVID-19 testing is negative. Initially, x-ray chest was obtained, which showed cardiomegaly and pulmonary vascular congestion. IMPRESSION: 1. Pulmonary edema. 2. ESRD, on dialysis. 3. Hypertension. 4. Multiple falls. DISCUSSION: Currently, patient is saturating well on room air. We will order continuing therapies. She needs dialysis. No specific pulmonary therapies. Cardiology followup noted. We will follow carefully. Branden Lovell M.D. DR: Charanjit JOB#: [id number] CC:
--- NOTE | 2020-05-03 19:04 | NUR ---
NURSE HAND-OFF REPORT: Important Events on Shift:[MONITORING AND REPORTING TROPONIN LEVEL TO FURNITURE MECHANIC; SAFETY MEASURES RENDERED; HD [facility] INFORMED AND CONFIRMED] Patient Status: [CONT TO MONITOR] Diet: [RENAL] Pending Orders: [LABS] Pending Results/Labs:[IN AM] Pending MD notification:[] Latest Vital Signs: Temperature 98.1 , Pulse 71 , B/P 94 /52 , Respiratory Rate 18 , O2 SAT 98 , Room Air, O2 Flow Rate . Vital Sign Comment: [] EKG Rhythm: Sinus Rhythm Rhythm change?: N Notified?: Norma Alicea MD Response: Stat Echo Latest Taylor Fall Score: 60 Fall Risk: High Risk Safety Measures: Call light Within Reach, Bed Alarm Zone 2, Side Rails Side Rails x3, Bed position Low and Locked. Fall Precautions: Patient Fall Education Report given to [DARYL KINSEY].
--- NOTE | 2020-05-03 19:05 | NUR ---
NURSE NOTES: Important Events on Shift: Received report from Isabelle Valenzuela LVN. Pt in bed, sleeping, no signs or symptoms of pain or distress noted at this time. Will continue plan of care and close monitoring. Patient Status: Stable throughout shift per report Diet: Renal Pending Orders: None Pending Results/Labs: Trop @ 2100 Pending notification: None Latest Vital Signs: Temperature 97.3 , Pulse 77 , B/P 101 /55 , Respiratory Rate 18 , O2 SAT 97 , Room Air, O2 Flow Rate . Vital Sign Comment: Stable throughout shift per report. EKG Rhythm: Sinus Rhythm Rhythm change?: N Notified?: N Response:N Latest Taylor Fall Score: 60 Fall Risk: High Risk Safety Measures: Call light Within Reach, Bed Alarm Zone 1, Side Rails Side Rails x3, Bed position Low and Locked. Seizure precautions YES Fall Precautions: YES Patient Fall Education YES
[2020-05-03 20:00] VITALS: BP 101/55
--- NOTE | 2020-05-03 20:30 | NUR ---
NURSE NOTES: Received order via Isabelle Valenzuela LVN from [facility]. For troponin: No MD notification needed if level below initial peak of 5.981. Entered order in EMR and carried out.
--- NOTE | 2020-05-03 22:41 | General Progress Note ---
Subjective Allergies: Coded Allergies: No Known Allergies (Unverified , 05/24/13) Objective Last 24 Hour Vital Signs Date Time Temp Pulse Resp B/P (MAP) Pulse Ox O2 Delivery O2 Flow Rate FiO2 05/03/20 21:00 Room Air 05/03/20 20:00 97.3 77 18 101/55 (70) 97 05/03/20 20:00 77 05/03/20 15:47 98.1 71 18 94/52 (66) 98 05/03/20 12:06 97.9 70 18 98/54 (69) 95 05/03/20 12:00 72 05/03/20 09:00 Room Air 05/03/20 08:36 72 96/53 05/03/20 08:00 71 05/03/20 08:00 98.8 72 18 96/53 (67) 99 05/03/20 04:00 98.0 74 20 103/54 (70) 98 05/03/20 04:00 75 05/03/20 00:00 115 05/03/20 00:00 97.5 112 20 115/61 (79) 96 Intake and Output 05/02/20 05/03/20 19:00 07:00 Intake Total 236 ml 200 ml Output Total 1000 ml 50 ml Balance -764 ml 150 ml Intake Oral 236 ml 200 ml Output Emesis 50 ml Hemodialysis UF 1000 ml # Voids 1 # Bowel Movements 1 1 Laboratory Tests 05/03/20 08:50: White Blood Count 5.1, Red Blood Count 2.84L, Hemoglobin 8.3L, Hematocrit 26.2L, Mean Corpuscular Volume 92, Mean Corpuscular Hemoglobin 29.3, Mean Corpuscular Hemoglobin Concent 31.8L, Red Cell Distribution Width 12.7, Platelet Count 119L, Mean Platelet Volume 7.0, Neutrophils (%) (Auto) 73.0, Lymphocytes (%) (Auto) 14.2L, Monocytes (%) (Auto) 9.8, Eosinophils (%) (Auto) 2.0, Basophils (%) (Auto) 1.0, Sodium Level 136, Potassium Level 4.5, Chloride Level 96L, Carbon Dioxide Level 27, Anion Gap 13, Blood Urea Nitrogen 69H, Creatinine 11.8H, Estimat Glomerular Filtration Rate 3.9, Glucose Level 134H, Uric Acid 5.6, Calcium Level 8.2#L, Phosphorus Level 6.9H, Magnesium Level 2.8H, Total Bilirubin 0.4, Gamma Glutamyl Transpeptidase 15, Aspartate Amino Transf (AST/SGOT) 38H, Alanine Aminotransferase (ALT/SGPT) 36, Alkaline Phosphatase 80, Troponin I 5.981H, C-Reactive Protein, Quantitative 3.2H, Pro-B-Type Natriuretic Peptide > 28055O, Total Protein 6.9, Albumin 3.1L, Globulin 3.8, Albumin/Globulin Ratio 0.8L, Triglycerides Level 97, Cholesterol Level 174, LDL Cholesterol 108H, HDL Cholesterol 39L, Cholesterol/HDL Ratio 4.5H, Thyroid Stimulating Hormone (TSH) 1.278 05/03/20 14:15: Troponin I 5.713H 05/03/20 20:55: Troponin I 4.633H Height (Feet): 5 Height (Inches): 2.00 Weight (Pounds): 166 Assessment/Plan Assessment/Plan: S: I am ok O: appears weak, frail, imbalance Exam: Hx Gastrointestinal Problems: No Hx Dialysis: Yes - av graft left arm-(T-TH-S)LAST DIALYSIS - Hx Neurological Problems: Yes Hx Cerebrovascular Accident: Yes - 2011- Hx Weakness: Yes AT/NC, chest: clear, Hreat: S1S2 RR, Abd: soft, MS: No gross lateralized motor deficit, atrophied muscle, wide gate balance , Neuro: AOX2, declined memory, Meds and labs: Reviewed and reconciled Medical Decision Making Diagnostic Impression: Primary Impression: Hyperkalemia with possible missed HD- Symptomatic NSTEMI PAF ESRD (end stage renal disease) on dialysis Anemia D63.1 - Anemia in chronic kidney disease; Z99.2 - Dependence on renal dialysis DM Hyperlipidemia Imbalance- dependent for ADLS- multiple falls c/w conservative management Will follwoup with serial troponin level Notes from Cardiology reviewed Cristian White MD May 03, 2020 22:41
[2020-05-04] VITALS: BP 100/49
[2020-05-04 04:00] VITALS: BP 92/47
--- NOTE | 2020-05-04 06:25 | NUR ---
NURSE HAND-OFF REPORT: Important Events on Shift: None Patient Status: stable trhougout shift Diet: renal Pending Orders: none Pending Results/Labs: none Pending MD notification: none Latest Vital Signs: Temperature 98.6 , Pulse 77 , B/P 92 /47 , Respiratory Rate 18 , O2 SAT 97 , Room Air, O2 Flow Rate . Vital Sign Comment: stable throughout shift EKG Rhythm: Sinus Rhythm Rhythm change?: N MD Notified?:N MD Response: N Latest Taylor Fall Score: 60 Fall Risk: High Risk Safety Measures: Call light Within Reach, Bed Alarm Zone 1, Side Rails Side Rails x3, Bed position Low and Locked YES Fall Precautions: YES Patient Fall Education YES
--- NOTE | 2020-05-04 07:10 | NUR ---
HAND-OFF: Report given to Eduardo Interiano RN and Ramin Crystal RN. Endorsed plan of care. .
--- NOTE | 2020-05-04 07:18 | NUR ---
NURSE NOTES: The patient was seen in bed in high fowlers position eating breakfast. The patient was under no sign of distress, bed was in the lowest position, locked in place, bed seizure measures were placed, side rails were up x3, and bed alarm was set to zone1.
[2020-05-04 08:00] VITALS: BP 109/59
[2020-05-04] MEDS: Metoprolol Succinate XL 50mg tab ORAL SCH ×2 (09:00→21:38)
[2020-05-04] MEDS: Heparin 5000 units/ml inj SUBQ SCH (09:00)
[2020-05-04] MEDS: sitaGLIPtin 25mg tab ORAL SCH (09:09)
[2020-05-04] MEDS: Docusate 100mg cap ORAL SCH ×3 (09:09→18:01)
[2020-05-04] MEDS: Aspirin EC 81mg tab ORAL SCH (09:09)
[2020-05-04] MEDS: Sucralfate 1gm tab ORAL SCH ×2 (09:10→18:02)
[2020-05-04] MEDS: Sensipar 30mg Tab ORAL SCH (09:10)
[2020-05-04] MEDS: Renvela 800mg Pkt ORAL SCH ×3 (09:10→18:03)
--- NOTE | 2020-05-04 09:59 | NUR ---
NURSE NOTES: Held metoprolol and heparin per Dialysis Nurse Young due to HD today
--- NOTE | 2020-05-04 10:46 | Pulmonology Progress Note ---
Subjective ROS Limited/Unobtainable: No Interval Events: None reported overnight Constitutional: Reports: no symptoms HEENT: Repors: no symptoms Respiratory: Reports: no symptoms Cardiovascular: Reports: no symptoms Gastrointestinal/Abdominal: Reports: no symptoms Genitourinary: Reports: no symptoms Allergies: Coded Allergies: No Known Allergies (Unverified , 05/24/13) Objective Last 24 Hour Vital Signs Date Time Temp Pulse Resp B/P (MAP) Pulse Ox O2 Delivery O2 Flow Rate FiO2 05/04/20 09:00 76 109/59 05/04/20 08:00 73 05/04/20 08:00 98.1 76 17 109/59 (76) 96 05/04/20 04:00 98.6 77 18 92/47 (62) 97 05/04/20 04:00 73 05/04/20 00:00 98.3 64 18 100/49 (66) 97 05/03/20 21:00 Room Air 05/03/20 20:00 97.3 77 18 101/55 (70) 97 05/03/20 20:00 77 05/03/20 15:47 98.1 71 18 94/52 (66) 98 05/03/20 12:06 97.9 70 18 98/54 (69) 95 05/03/20 12:00 72 Intake and Output 05/03/20 05/04/20 19:00 07:00 Intake Total 240 ml 400 ml Balance 240 ml 400 ml Intake Oral 240 ml 400 ml # Voids 1 3 # Bowel Movements 1 HEENT: normocephalic Respiratory: chest wall non-tender, lungs clear Cardiovascular: normal peripheral pulses, regularly irregular Abdomen: normal bowel sounds Microbiology Date/Time Source Procedure Growth Status 05/01/20 21:10 Rectum - Final NO CARBAPENEM-RESISTANT ENTEROBACTERI... Complete 05/01/20 21:10 Rectum VRE Culture - Final NO VANCOMYCIN RESISTANT ENTEROCOCCUS ... Complete 05/01/20 21:10 Nasal Nares MRSA Culture - Final NO METHICILLIN RESISTANT STAPH AUREUS... Complete 05/01/20 19:15 Nasopharynx SARS-CoV-2 RdRp Gene Assay - Final Complete Laboratory Tests 05/03/20 14:15: Troponin I 5.713H 05/03/20 20:55: Troponin I 4.633H Current Medications Medications (Trade) Dose Ordered Sig/Gini Route PRN Reason Start Time Stop Time Status Last Admin Dose Admin Acetaminophen/ Hydrocodone Bitart (Mccaulley 5/325) 1 tab Q6H PRN ORAL For Pain 05/01/20 23:15 05/08/20 23:14 05/02/20 20:05 Aspirin (Ecotrin) 81 mg DAILY ORAL 05/02/20 09:00 06/16/20 08:59 05/04/20 09:09 Atorvastatin Calcium (Lipitor) 20 mg BEDTIME ORAL 05/02/20 21:00 07/31/20 20:59 05/03/20 21:12 Bisacodyl (Dulcolax) 5 mg DAILY PRN ORAL stool 05/01/20 23:15 07/30/20 23:14 Calcium Acetate (Phoslo) 1,334 mg TID ORAL 05/03/20 13:00 07/31/20 08:59 05/04/20 09:09 Cinacalcet (Sensipar) 30 mg DAILY ORAL 05/02/20 09:00 07/31/20 08:59 05/04/20 09:10 Docusate Sodium (Colace) 100 mg THREE TIMES A DAY ORAL 05/02/20 09:00 06/01/20 08:59 05/04/20 09:09 Epoetin Jairo (Epoetin Jairo(ESRD on dialysis)) 10,000 unit TUE- SUBQ 05/02/20 21:00 07/31/20 20:59 05/02/20 20:31 Heparin Sodium (Porcine) (Heparin 5000 units/ml) 5,000 units EVERY 12 HOURS SUBQ 05/02/20 09:00 06/16/20 08:59 05/03/20 08:43 Hydralazine HCl (Apresoline) 25 mg Q4H PRN ORAL For BP over 160 systolic 05/02/20 10:15 07/31/20 10:14 Levetiracetam (Keppra) 500 mg EVERY 12 HOURS ORAL 05/02/20 09:00 06/16/20 08:59 05/04/20 09:09 Metoprolol Succinate (Toprol XL) 25 mg Q12HR ORAL 05/04/20 09:00 07/31/20 12:59 Pantoprazole (Protonix) 40 mg BID ORAL 05/02/20 18:00 06/01/20 08:59 05/04/20 09:09 Sevelamer Carbonate (Renvela) 1,600 mg THREE TIMES A DAY ORAL 05/02/20 13:00 07/31/20 08:59 05/04/20 09:10 Sitagliptin Phosphate (Januvia) 25 mg DAILY ORAL 05/02/20 09:00 06/01/20 08:59 05/04/20 09:09 Sucralfate (Carafate) 1 gm BID ORAL 05/03/20 18:00 07/31/20 08:59 05/04/20 09:10 Assessment/Plan Assessment/Plan IMPRESSION: 1. Pulmonary edema. 2. ESRD, on dialysis. 3. Hypertension. 4. Multiple falls. DISCUSSION: Currently, patient is saturating well on room air. Continue HD per nephrology. I will follow carefully. Andriy Jaquez Omar Syed MD May 04, 2020 10:46
[2020-05-04 12:00] VITALS: BP 131/56
--- NOTE | 2020-05-04 13:28 | Nephrology Progress Note ---
Assessment/Plan Problem List: (1) Hyperkalemia (2) Anemia in chronic kidney disease (3) ESRD (end stage renal disease) on dialysis (4) CVA (cerebrovascular accident) Assessment: By history (5) Coronary artery disease Assessment: Rising troponin I Assessment Contusion of hip, right End-stage renal disease, on hemodialysis Tuesday. Missed her last dialysis session. Presented with hyperkalemia History of anemia of chronic kidney disease History of hydronephrosis History of CVA Plan May 04: Patient seen during dialysis. Tolerating well. Labs reviewed. Medication list reviewed. Will discuss with bench worker helper regarding initiation of Plavix and Eliquis. Troponin I lower today. Continue dialysis as needed. May 03: Labs and medication list reviewed. Blood pressure hovering around 90 systolic. Will cut down on Lopressor dose. Increased PhosLo to 2 tablets 3 times daily. Hemodialysis tomorrow. BP support with albumin. Continue per cardiology advice. 1 dose of Plavix given. Questionable need for heparin drip. May 02: Dialysis today as soon as possible for hyperkalemia, Adjust blood pressure medication Epogen for anemia Blood sugar control Per orders Subjective ROS Limited/Unobtainable: No Constitutional: Reports: malaise Objective Objective Last 24 Hour Vital Signs Date Time Temp Pulse Resp B/P (MAP) Pulse Ox O2 Delivery O2 Flow Rate FiO2 05/04/20 12:00 98.1 68 17 131/56 (81) 98 05/04/20 09:00 76 109/59 05/04/20 09:00 Room Air 05/04/20 08:00 73 05/04/20 08:00 98.1 76 17 109/59 (76) 96 05/04/20 04:00 98.6 77 18 92/47 (62) 97 05/04/20 04:00 73 05/04/20 00:00 98.3 64 18 100/49 (66) 97 05/03/20 21:00 Room Air 05/03/20 20:00 97.3 77 18 101/55 (70) 97 05/03/20 20:00 77 05/03/20 15:47 98.1 71 18 94/52 (66) 98 Intake and Output 05/03/20 05/04/20 18:59 06:59 Intake Total 240 ml 400 ml Balance 240 ml 400 ml Intake Oral 240 ml 400 ml # Voids 1 3 # Bowel Movements 1 No chemistry panel drawn today laboratory Tests 05/03/20 14:15: Troponin I 5.713H 05/03/20 20:55: Troponin I 4.633H Height (Feet): 5 Height (Inches): 2.00 Weight (Pounds): 166 General Appearance: no apparent distress, other - Seen during dialysis Cardiovascular: normal rate Respiratory/Chest: decreased breath sounds Abdomen: soft Supa Gomes MD May 04, 2020 13:28
--- NOTE | 2020-05-04 13:30 | NUR ---
PT Note Attempted to see patient for treatment but patient was having dialysis. Will check again in AM.
--- NOTE | 2020-05-04 15:17 | Cardiology Report ---
APPROVED REPORT EXAM: Two-dimensional and M-mode echocardiogram with Doppler and color Doppler. INDICATION Atrial Fibrillation M-Mode DIMENSIONS IVSd0.7 (0.7-1.1cm)Left Atrium (MM)4.6 (1.6-4.0cm) LVDd3.7 (3.5-5.6cm)Aortic Root3.0 (2.0-3.7cm) PWd1.0 (0.7-1.1cm)Aortic Cusp Exc.1.5 (1.5-2.0cm) IVSs1.6 cmEPSS0.4 (>1.0cm) LVDs2.7 (2.5-4.0cm) PWs1.0 cm <Conclusion> Technically difficult study due to poor acoustical windows. Study quality precludes accurate assessment of regional wall motion. Normal left ventricular chamber size and systolic function . Left ventricular ejection fraction estimated to be 60-65 %. No left ventricular hypertrophy. No evidence of pericardial effusion. Left atrial size at upper limits of normal. Right cardiac chamber sizes are within normal limits. Focal aortic valve sclerosis with adequate cusp excursion. Thickened mitral valve leaflets with normal excursion. Mitral annulus and aortic root calcification. Pulmonic valve not well visualized. Normal tricuspid valve structure. IVC normal size with physiologic collapse. A color flow and spectral Doppler study was performed and revealed: No aortic insufficiency. Trace mitral regurgitation. Can not determine left ventricular diastolic function based on mitral diastolic velocities due to arrythmia. Mild tricuspid regurgitation. Tricuspid systolic velocities suggests peak right ventricular systolic pressure of 28 mmHg. No pulmonic regurgitation present.
--- NOTE | 2020-05-04 15:30 | NUR ---
NURSE NOTES: Dialysis done today and removed two liters with BP 130/65.
--- NOTE | 2020-05-04 15:51 | Cardiology Report ---
APPROVED REPORT EKG Measurement Heart [id number] <Conclusion> Normal sinus rhythm Low voltage QRS Nonspecific ST and T wave abnormality Prolonged QT Abnormal ECG
--- NOTE | 2020-05-04 15:58 | Cardiology Report ---
APPROVED REPORT EKG Measurement Heart [id number] [place] [id number] <Conclusion> Normal sinus rhythm ST & T wave abnormality, consider inferior ischemia Abnormal ECG
[2020-05-04 16:00] VITALS: BP 133/61
--- NOTE | 2020-05-04 16:11 | Cardiology Report ---
APPROVED REPORT EKG Measurement Heart [id number] <Conclusion> Atrial fibrillation with rapid ventricular response with premature ventricular or aberrantly conducted complexes Marked ST abnormality, possible inferior subendocardial injury Abnormal ECG
--- NOTE | 2020-05-04 16:16 | Cardiology Report ---
APPROVED REPORT EKG Measurement Heart [id number] [place] [id number] <Conclusion> Normal sinus rhythm ST & T wave abnormality, consider inferior ischemia Prolonged QT Abnormal ECG
--- NOTE | 2020-05-04 16:18 | NUR ---
NURSE NOTES: Patients family member brought in two phone chargers one white and one black they were added to inventory list.
--- NOTE | 2020-05-04 17:00 | Cardiac Electrophysiology PN ---
Assessment/Plan Assessment/Plan 1. Atrial fibrillation with rapid ventricular response. Converted to SR. On Toprol-XL 25 bid . Was on Coumadin at home. Switch to Eliquis 2.5 mg b.i.d. 2. NSTEMI Troponin 0.3> 3.o > 6. Down to 4.63. No CP on Aspirin, Toprol and Lipitor. DC Plavix (was one time dose yesterday only) and SQ heparin ECGs only Ns ST-T changes. Will need transfer for cardiac cath to [facility] after stabilization 3. Hypertension. Toprol 25 bid. 4. End-stage renal disease, on hemodialysis. 5. Hyperlipidemia on Lipitor. 6. Anemia, on Epogen. 7. Seizures, on Keppra. DW Dr. Gomes, Dr White, RN and pharmacist Subjective Subjective No CP or SOB despite the rising troponins. Converted to SR yesterday. Troponin now coming down. Objective Last 24 Hour Vital Signs Date Time Temp Pulse Resp B/P (MAP) Pulse Ox O2 Delivery O2 Flow Rate FiO2 05/04/20 16:00 98.2 79 20 133/61 (85) 98 05/04/20 16:00 79 05/04/20 12:00 71 05/04/20 12:00 98.1 68 17 131/56 (81) 98 05/04/20 09:00 76 109/59 05/04/20 09:00 Room Air 05/04/20 08:00 73 05/04/20 08:00 98.1 76 17 109/59 (76) 96 05/04/20 04:00 98.6 77 18 92/47 (62) 97 05/04/20 04:00 73 05/04/20 00:00 98.3 64 18 100/49 (66) 97 05/03/20 21:00 Room Air 05/03/20 20:00 97.3 77 18 101/55 (70) 97 05/03/20 20:00 77 Intake and Output 05/03/20 05/04/20 19:00 07:00 Intake Total 240 ml 400 ml Balance 240 ml 400 ml Intake Oral 240 ml 400 ml # Voids 1 3 # Bowel Movements 1 Laboratory Tests Test 05/03/20 20:55 05/04/20 13:00 Troponin I 4.633 ng/mL (0.000-0.056) Hepatitis B Surface Antigen Pending Microbiology Date/Time Source Procedure Growth Status 05/01/20 21:10 Rectum - Final NO CARBAPENEM-RESISTANT ENTEROBACTERI... Complete 05/01/20 21:10 Rectum VRE Culture - Final NO VANCOMYCIN RESISTANT ENTEROCOCCUS ... Complete 05/01/20 21:10 Nasal Nares MRSA Culture - Final NO METHICILLIN RESISTANT STAPH AUREUS... Complete 05/01/20 19:15 Nasopharynx SARS-CoV-2 RdRp Gene Assay - Final Complete Objective HEAD AND NECK: Showed no JVD. LUNGS: Coarse rhonchi. CARDIOVASCULAR: Shows irregularly irregular S1 and S2 with no gallop or murmur. ABDOMEN: Soft. EXTREMITIES: AV shunt in the left arm. Jayjay Alicea MD May 04, 2020 17:00
[2020-05-04] MEDS: Eliquis 2.5mg tablet ORAL SCH (18:02)
--- NOTE | 2020-05-04 19:16 | NUR ---
NURSE HAND-OFF REPORT: Important Events on Shift:[Hemodialysis with 2L fluid removed] Patient Status: [Stable] Diet: [Renal Diet] Pending Orders: [N/A] Pending Results/Labs:[N/A] Pending MD notification:[N/A] Latest Vital Signs: Temperature 98.2 , Pulse 79 , B/P 133 /61 , Respiratory Rate 20 , O2 SAT 98 , Room Air, O2 Flow Rate . Vital Sign Comment: [] EKG Rhythm: Sinus Rhythm Rhythm change?: N MD Notified?: Y - MD Response: Latest Taylor Fall Score: 60 Fall Risk: High Risk Safety Measures: Call light Within Reach, Bed Alarm Zone 1, Side Rails Side Rails x3, Bed position Low and Locked. Fall Precautions: Patient Fall Education Report given to [SEEMA Hall].
[2020-05-04 20:00] VITALS: BP 128/51
--- NOTE | 2020-05-04 20:00 | NUR ---
NURSE NOTES: RECEIVED PATIENT LYING IN BED, EYES CLOSED, AWAKENED TO NAME, DENIES PAIN. NO SIGNS AND SYMPTOMS OF ACUTE CARDIO RESPIRATORY DISTRESS/SHORTNESS OF BREATH, DENIES CHEST PAIN, SINUS RHYTHM ON ODD PIECE CHECKER. S/P HEMODIALYSIS VIA LEFT UPPER ARM AV SHUNT/2L REMOVED, NO ILL EFFECTS NOTED. IV INTACT TO RIGHT AC/GAUGE 20, NO SIGNS OF INFILTRATION, DRESSING DRY AND INTACT, NO SIGN OF BLEEDING NOTED. NO COMPLAINTS OF GI DISCOMFORT, NO N/V/D. SIDE RAILS UP X3/BED IN LOWEST POSITION FOR SAFETY, ENCOURAGED PATIENT TO UTILIZE CALL LIGHT FOR ASSISTANCE, VERBALIZED UNDERSTANDING. CONTINUE WITH CURRENT PLAN OF CARE. NAD.
--- NOTE | 2020-05-04 21:58 | General Progress Note ---
Subjective Allergies: Coded Allergies: No Known Allergies (Unverified , 05/24/13) Objective Last 24 Hour Vital Signs Date Time Temp Pulse Resp B/P (MAP) Pulse Ox O2 Delivery O2 Flow Rate FiO2 05/04/20 21:38 80 112/55 05/04/20 21:00 Room Air 05/04/20 20:00 81 05/04/20 20:00 101.5 81 17 128/51 (76) 97 05/04/20 16:00 98.2 79 20 133/61 (85) 98 05/04/20 16:00 79 05/04/20 12:00 71 05/04/20 12:00 98.1 68 17 131/56 (81) 98 05/04/20 09:00 76 109/59 05/04/20 09:00 Room Air 05/04/20 08:00 73 05/04/20 08:00 98.1 76 17 109/59 (76) 96 05/04/20 04:00 98.6 77 18 92/47 (62) 97 05/04/20 04:00 73 05/04/20 00:00 98.3 64 18 100/49 (66) 97 Intake and Output 05/03/20 05/04/20 19:00 07:00 Intake Total 240 ml 400 ml Balance 240 ml 400 ml Intake Oral 240 ml 400 ml # Voids 1 3 # Bowel Movements 1 Laboratory Tests 05/04/20 13:00: Hepatitis B Surface Antigen [Pending] Height (Feet): 5 Height (Inches): 2.00 Weight (Pounds): 166 Assessment/Plan Assessment/Plan: S: I am ok O: appears weak, frail, imbalance Exam: Hx Gastrointestinal Problems: No Hx Dialysis: Yes - av graft left arm-(T-TH-S)LAST DIALYSIS - Hx Neurological Problems: Yes Hx Cerebrovascular Accident: Yes - 2011- Hx Weakness: Yes AT/NC, chest: clear, Hreat: S1S2 RR, Abd: soft, MS: No gross lateralized motor deficit, atrophied muscle, wide gate balance , Neuro: AOX2, declined memory, Meds and labs: Reviewed and reconciled, including Eliquis and ASA Medical Decision Making Diagnostic Impression: Primary Impression: Hyperkalemia with possible missed HD- Symptomatic NSTEMI PAF ESRD (end stage renal disease) on dialysis Anemia D63.1 - Anemia in chronic kidney disease; Z99.2 - Dependence on renal dialysis DM Hyperlipidemia Imbalance- dependent for ADLS- multiple falls c/w conservative management Will followup with serial troponin level Notes from Cardiology reviewed Cristian White MD May 04, 2020 21:58
[2020-05-05] VITALS: BP 104/50
[2020-05-05 04:00] VITALS: BP 107/60
--- NOTE | 2020-05-05 05:30 | NUR ---
NURSE NOTES: Per Dr. White, continue blood transfusion despite temperature elevation. Addendum: 05/05/20 at 1600 by Obdulia Ramirez RN wrong time and date stamp
[2020-05-05 07:02] LABS: HEMOGLOBIN 7.8 G/DL (12.0-16.0); MEAN CORPUSCULAR VOLUME 93 FL (80-99); PLATELET COUNT 116 K/UL (150-450); RED BLOOD COUNT 2.69 M/UL (4.20-5.40); RED CELL DISTRIBUTION WIDTH 13.4 % (11.6-14.8); WHITE BLOOD COUNT 7.3 K/UL (4.8-10.8)
--- NOTE | 2020-05-05 07:29 | NUR ---
NURSE HAND-OFF REPORT: Important Events on Shift:[T MAX 101.5, TYLENOL 650MG ADM. CURRENT T 99.3-DCP/PLEASE NOTIFY SON PRIOR TO DISCHARGE SECONDARY TO PATIENT MEMORY ISSUES] Patient Status: [STABLE, AFEBRILE] Diet: [RENAL] Pending Orders: [N/A] Pending Results/Labs:[] Pending MD notification:[] Latest Vital Signs: Temperature 99.3 , Pulse 77 , B/P 107 /60 , Respiratory Rate 20 , O2 SAT 98 , Room Air, O2 Flow Rate . Vital Sign Comment: [T 99.3] EKG Rhythm: Sinus Rhythm Rhythm change?: N MD Notified?: Y -Dr. Deanne ARMSTRONG Response: Stat Echo Latest Taylor Fall Score: 60 Fall Risk: High Risk Safety Measures: Call light Within Reach, Bed Alarm Zone 1, Side Rails Side Rails x3, Bed position Low and Locked. Fall Precautions: Patient Fall Education Report given to [SEEMA NDIAYE].
[2020-05-05 07:31] LABS: ALANINE AMINOTRANSFERASE 22 U/L (12-78); ALBUMIN/GLOBULIN RATIO 0.8 (1.0-2.7); ALKALINE PHOSPHATASE 86 U/L (46-116); ANION GAP 10 mmol/L (5-15); ASPARTATE AMINO TRANSFERASE 23 U/L (15-37); BILIRUBIN,TOTAL 0.3 MG/DL (0.2-1.0); BLOOD UREA NITROGEN 43 mg/dL (7-18); CALCIUM 8.3 MG/DL (8.5-10.1); CARBON DIOXIDE 27 MMOL/L (21-32); CHLORIDE 98 MMOL/L (98-107); CREATININE 8.5 MG/DL (0.55-1.30); PHOSPHORUS 3.6 MG/DL (2.5-4.9); POTASSIUM 3.8 MMOL/L (3.5-5.1); SODIUM 135 MMOL/L (136-145)
--- NOTE | 2020-05-05 07:43 | NUR ---
NURSE NOTES: Received hand-off report from Niki Hall RN. Patient resting, semi-fowlers, stacker and sorter operator in place, alert and oriented x3, breathing even and unlabored. Bed in lowest and locked position, bed alarm on, call light within reach.
[2020-05-05 08:00] VITALS: BP 95/48
[2020-05-05] MEDS: Eliquis 2.5mg tablet ORAL SCH ×2 (08:24→18:00)
[2020-05-05] MEDS: Metoprolol Succinate XL 50mg tab ORAL SCH ×2 (08:24→21:00)
[2020-05-05] MEDS: Aspirin EC 81mg tab ORAL SCH (08:25)
[2020-05-05] MEDS: Docusate 100mg cap ORAL SCH ×3 (08:27→18:11)
[2020-05-05] MEDS: Renvela 800mg Pkt ORAL SCH ×3 (08:28→18:11)
[2020-05-05] MEDS: sitaGLIPtin 25mg tab ORAL SCH (08:28)
[2020-05-05] MEDS: Sucralfate 1gm tab ORAL SCH ×2 (08:28→18:11)
--- NOTE | 2020-05-05 08:40 | NUR ---
NURSE NOTES: Notified Dr. White regarding hgb 7.8, hct 25.0, platelets 116 and BP 95/48. Dr. White ordered the following: hold Eliquis and aspirin, stool occult blood test and transfuse 1 unit of prbcs.
--- NOTE | 2020-05-05 09:25 | Nephrology Progress Note ---
Assessment/Plan Problem List: (1) Hyperkalemia (2) Anemia in chronic kidney disease (3) ESRD (end stage renal disease) on dialysis (4) CVA (cerebrovascular accident) Assessment: By history (5) Coronary artery disease Assessment: Rising troponin I Assessment Contusion of hip, right End-stage renal disease, on hemodialysis Tuesday. Missed her last dialysis session. Presented with hyperkalemia History of anemia of chronic kidney disease History of hydronephrosis History of CVA Plan May 05: Patient dialyzed yesterday. Due for dialysis tomorrow. Labs reviewed. Medication list reviewed. Hemoglobin 7.8. Will aim to transfuse 1 unit of packed RBCs. May 04: Patient seen during dialysis. Tolerating well. Labs reviewed. Medication list reviewed. Will discuss with website designer regarding initiation of Plavix and Eliquis. Troponin I lower today. Continue dialysis as needed. May 03: Labs and medication list reviewed. Blood pressure hovering around 90 systolic. Will cut down on Lopressor dose. Increased PhosLo to 2 tablets 3 times daily. Hemodialysis tomorrow. BP support with albumin. Continue per cardiology advice. 1 dose of Plavix given. Questionable need for heparin drip. May 02: Dialysis today as soon as possible for hyperkalemia, Adjust blood pressure medication Epogen for anemia Blood sugar control Per orders Subjective ROS Limited/Unobtainable: No Constitutional: Reports: malaise Objective Objective Last 24 Hour Vital Signs Date Time Temp Pulse Resp B/P (MAP) Pulse Ox O2 Delivery O2 Flow Rate FiO2 05/05/20 08:24 75 95/48 05/05/20 08:00 77 05/05/20 08:00 98.9 75 20 95/48 (64) 05/05/20 04:00 99.3 85 20 107/60 (76) 05/05/20 04:00 77 05/05/20 00:00 79 05/05/20 00:00 99.0 81 17 104/50 (68) 98 05/04/20 22:26 99.0 05/04/20 21:38 80 112/55 05/04/20 21:00 Room Air 05/04/20 20:00 81 05/04/20 20:00 101.5 81 17 128/51 (76) 97 05/04/20 16:00 98.2 79 20 133/61 (85) 98 05/04/20 16:00 79 05/04/20 12:00 71 05/04/20 12:00 98.1 68 17 131/56 (81) 98 Intake and Output 05/04/20 05/05/20 19:00 07:00 Intake Total 400 ml 360 ml Output Total 4000 ml Balance -3600 ml 360 ml Intake Oral 400 ml 360 ml Hemodialysis UF 4000 ml # Voids 1 1 # Bowel Movements 1 1 Current Medications Medications (Trade) Dose Ordered Sig/Gini Route PRN Reason Start Time Stop Time Status Last Admin Dose Admin Acetaminophen (Tylenol) 650 mg Q6H PRN ORAL Temp >100.5 05/04/20 21:30 06/03/20 21:29 05/04/20 21:56 Acetaminophen/ Hydrocodone Bitart ([place] 5/325) 1 tab Q6H PRN ORAL For Pain 05/01/20 23:15 05/08/20 23:14 05/02/20 20:05 Apixaban (Eliquis) 2.5 mg BID ORAL 05/04/20 18:00 08/02/20 17:59 05/04/20 18:02 Aspirin (Ecotrin) 81 mg DAILY ORAL 05/02/20 09:00 06/16/20 08:59 05/04/20 09:09 Atorvastatin Calcium (Lipitor) 20 mg BEDTIME ORAL 05/02/20 21:00 07/31/20 20:59 05/04/20 21:34 Bisacodyl (Dulcolax) 5 mg DAILY PRN ORAL stool 05/01/20 23:15 07/30/20 23:14 Calcium Acetate (Phoslo) 1,334 mg TID ORAL 05/03/20 13:00 07/31/20 08:59 05/05/20 08:27 Docusate Sodium (Colace) 100 mg THREE TIMES A DAY ORAL 05/02/20 09:00 06/01/20 08:59 05/05/20 08:27 Epoetin Jairo (Epoetin Jairo(ESRD on dialysis)) 10,000 unit MON-WED-TUE SUBQ 05/02/20 21:00 07/31/20 20:59 05/02/20 20:31 Hydralazine HCl (Apresoline) 25 mg Q4H PRN ORAL For BP over 160 systolic 05/02/20 10:15 07/31/20 10:14 Levetiracetam (Keppra) 500 mg EVERY 12 HOURS ORAL 05/02/20 09:00 06/16/20 08:59 05/05/20 08:28 Metoprolol Succinate (Toprol XL) 25 mg Q12HR ORAL 05/04/20 09:00 07/31/20 12:59 05/04/20 21:38 Pantoprazole (Protonix) 40 mg BID ORAL 05/02/20 18:00 06/01/20 08:59 05/05/20 08:27 Sevelamer Carbonate (Renvela) 1,600 mg THREE TIMES A DAY ORAL 05/02/20 13:00 07/31/20 08:59 05/05/20 08:28 Sitagliptin Phosphate (Januvia) 25 mg DAILY ORAL 05/02/20 09:00 06/01/20 08:59 05/05/20 08:28 Sucralfate (Carafate) 1 gm BID ORAL 05/03/20 18:00 07/31/20 08:59 05/05/20 08:28 Laboratory Tests 05/04/20 13:00: Hepatitis B Surface Antigen [Pending] 05/05/20 06:20: White Blood Count 7.3, Red Blood Count 2.69L, Hemoglobin 7.8L, Hematocrit 25.0L, Mean Corpuscular Volume 93, Mean Corpuscular Hemoglobin 29.0, Mean Corpuscular Hemoglobin Concent 31.1L, Red Cell Distribution Width 13.4, Platelet Count 116L, Mean Platelet Volume 8.0, Neutrophils (%) (Auto) , Lymphocytes (%) (Auto) , Monocytes (%) (Auto) , Eosinophils (%) (Auto) , Basophils (%) (Auto) , Differential Total Cells Counted 100, Neutrophils % (Manual) 80H, Lymphocytes % (Manual) 9L, Monocytes % (Manual) 6, Eosinophils % (Manual) 5H, Basophils % (Manual) 0, Band Neutrophils 0, Platelet Estimate DecreasedL, Platelet Morphology Normal, Hypochromasia 1+, Sodium Level 135L, Potassium Level 3.8, Chloride Level 98, Carbon Dioxide Level 27, Anion Gap 10, Blood Urea Nitrogen 43H, Creatinine 8.5H, Estimat Glomerular Filtration Rate 5.7, Glucose Level 100, Uric Acid 3.4, Calcium Level 8.3L, Phosphorus Level 3.6, Magnesium Level 2.6H, Total Bilirubin 0.3, Aspartate Amino Transf (AST/SGOT) 23, Alanine Aminotransferase (ALT/SGPT) 22, Alkaline Phosphatase 86, C-Reactive Protein, Quantitative 4.9H, Pro-B-Type Natriuretic Peptide > 12614Y, Total Protein 6.9, Albumin 3.0L, Globulin 3.9, Albumin/Globulin Ratio 0.8L Height (Feet): 5 Height (Inches): 2.00 Weight (Pounds): 166 General Appearance: no apparent distress Cardiovascular: normal rate Respiratory/Chest: decreased breath sounds Abdomen: soft Supa Gomes MD May 05, 2020 09:25
--- NOTE | 2020-05-05 09:51 | General Progress Note ---
Subjective Allergies: Coded Allergies: No Known Allergies (Unverified , 05/24/13) Objective Last 24 Hour Vital Signs Date Time Temp Pulse Resp B/P (MAP) Pulse Ox O2 Delivery O2 Flow Rate FiO2 05/05/20 08:24 75 95/48 05/05/20 08:00 77 05/05/20 08:00 98.9 75 20 95/48 (64) 05/05/20 04:00 99.3 85 20 107/60 (76) 05/05/20 04:00 77 05/05/20 00:00 79 05/05/20 00:00 99.0 81 17 104/50 (68) 98 05/04/20 22:26 99.0 05/04/20 21:38 80 112/55 05/04/20 21:00 Room Air 05/04/20 20:00 81 05/04/20 20:00 101.5 81 17 128/51 (76) 97 05/04/20 16:00 98.2 79 20 133/61 (85) 98 05/04/20 16:00 79 05/04/20 12:00 71 05/04/20 12:00 98.1 68 17 131/56 (81) 98 Intake and Output 05/04/20 05/05/20 19:00 07:00 Intake Total 400 ml 360 ml Output Total 4000 ml Balance -3600 ml 360 ml Intake Oral 400 ml 360 ml Hemodialysis UF 4000 ml # Voids 1 1 # Bowel Movements 1 1 Laboratory Tests 05/04/20 13:00: Hepatitis B Surface Antigen Negative 05/05/20 06:20: White Blood Count 7.3, Red Blood Count 2.69L, Hemoglobin 7.8L, Hematocrit 25.0L, Mean Corpuscular Volume 93, Mean Corpuscular Hemoglobin 29.0, Mean Corpuscular Hemoglobin Concent 31.1L, Red Cell Distribution Width 13.4, Platelet Count 116L, Mean Platelet Volume 8.0, Neutrophils (%) (Auto) , Lymphocytes (%) (Auto) , Mon ocytes (%) (Auto) , Eosinophils (%) (Auto) , Basophils (%) (Auto) , Differential Total Cells Counted 100, Neutrophils % (Manual) 80H, Lymphocytes % (Manual) 9L, Monocytes % (Manual) 6, Eosinophils % (Manual) 5H, Basophils % (Manual) 0, Band Neutrophils 0, Platelet Estimate DecreasedL, Platelet Morphology Normal, Hypochromasia 1+, Sodium Level 135L, Potassium Level 3.8, Chloride Level 98, Carbon Dioxide Level 27, Anion Gap 10, Blood Urea Nitrogen 43H, Creatinine 8.5H, Estimat Glomerular Filtration Rate 5.7, Glucose Level 100, Uric Acid 3.4, Calcium Level 8.3L, Phosphorus Level 3.6, Magnesium Level 2.6H, Total Bilirubin 0.3, Aspartate Amino Transf (AST/SGOT) 23, Alanine Aminotransferase (ALT/SGPT) 22, Alkaline Phosphatase 86, C-Reactive Protein, Quantitative 4.9H, Pro-B-Type Natriuretic Peptide > 08878Z, Total Protein 6.9, Albumin 3.0L, Globulin 3.9, Albumin/Globulin Ratio 0.8L Height (Feet): 5 Height (Inches): 2.00 Weight (Pounds): 166 Assessment/Plan Assessment/Plan: S: I am ok O: appears weak, frail, imbalance Exam: Gastrointestinal Problems: No Dialysis: Yes - av graft left arm-(T-TH-S)LAST DIALYSIS - Neurological Problems: Yes Cerebrovascular Accident: Yes - 2011- AT/NC, chest: clear, Hreat: S1S2 RR, Abd: soft, MS: No gross lateralized motor deficit, atrophied muscle, wide gate balance , Neuro: AOX2, declined memory, Meds and labs: Reviewed and reconciled, including Eliquis and ASA Medical Decision Making Diagnostic Impression: Primary Impression: Hyperkalemia with possible missed HD- Symptomatic NSTEMI PAF ESRD (end stage renal disease) on dialysis Anemia D63.1 - Anemia in chronic kidney disease; Z99.2 - Dependence on renal dialysis DM Hyperlipidemia Imbalance- dependent for ADLS- multiple falls Will followup with serial troponin level Notes from Cardiology reviewed , once clear from cardiology viewpoint will transfer to [facility] for CC Cristian White MD May 05, 2020 09:51
--- NOTE | 2020-05-05 10:16 | Pulmonology Progress Note ---
Subjective ROS Limited/Unobtainable: No Interval Events: None reported overnight Constitutional: Reports: no symptoms HEENT: Repors: no symptoms Respiratory: Reports: no symptoms Cardiovascular: Reports: no symptoms Gastrointestinal/Abdominal: Reports: no symptoms Genitourinary: Reports: no symptoms Allergies: Coded Allergies: No Known Allergies (Unverified , 05/24/13) Objective Last 24 Hour Vital Signs Date Time Temp Pulse Resp B/P (MAP) Pulse Ox O2 Delivery O2 Flow Rate FiO2 05/05/20 08:24 75 95/48 05/05/20 08:00 77 05/05/20 08:00 98.9 75 20 95/48 (64) 05/05/20 04:00 99.3 85 20 107/60 (76) 05/05/20 04:00 77 05/05/20 00:00 79 05/05/20 00:00 99.0 81 17 104/50 (68) 98 05/04/20 22:26 99.0 05/04/20 21:38 80 112/55 05/04/20 21:00 Room Air 05/04/20 20:00 81 05/04/20 20:00 101.5 81 17 128/51 (76) 97 05/04/20 16:00 98.2 79 20 133/61 (85) 98 05/04/20 16:00 79 05/04/20 12:00 71 05/04/20 12:00 98.1 68 17 131/56 (81) 98 Intake and Output 05/04/20 05/05/20 19:00 07:00 Intake Total 400 ml 360 ml Output Total 4000 ml Balance -3600 ml 360 ml Intake Oral 400 ml 360 ml Hemodialysis UF 4000 ml # Voids 1 1 # Bowel Movements 1 1 HEENT: normocephalic Respiratory: chest wall non-tender, lungs clear Cardiovascular: normal peripheral pulses, regularly irregular Abdomen: normal bowel sounds Laboratory Tests 05/04/20 13:00: Hepatitis B Surface Antigen Negative 05/05/20 06:20: White Blood Count 7.3, Red Blood Count 2.69L, Hemoglobin 7.8L, Hematocrit 25.0L, Mean Corpuscular Volume 93, Mean Corpuscular Hemoglobin 29.0, Mean Corpuscular Hemoglobin Concent 31.1L, Red Cell Distribution Width 13.4, Platelet Count 116L, Mean Platelet Volume 8.0, Neutrophils (%) (Auto) , Lymphocytes (%) (Auto) , Monocytes (%) (Auto) , Eosinophils (%) (Auto) , Basophils (%) (Auto) , Differential Total Cells Counted 100, Neutrophils % (Manual) 80H, Lymphocytes % (Manual) 9L, Monocytes % (Manual) 6, Eosinophils % (Manual) 5H, Basophils % (Manual) 0, Band Neutrophils 0, Platelet Estimate DecreasedL, Platelet Morphology Normal, Hypochromasia 1+, Sodium Level 135L, Potassium Level 3.8, Chloride Level 98, Carbon Dioxide Level 27, Anion Gap 10, Blood Urea Nitrogen 43H, Creatinine 8.5H, Estimat Glomerular Filtration Rate 5.7, Glucose Level 100, Uric Acid 3.4, Calcium Level 8.3L, Phosphorus Level 3.6, Magnesium Level 2.6H, Total Bilirubin 0.3, Aspartate Amino Transf (AST/SGOT) 23, Alanine Aminotransferase (ALT/SGPT) 22, Alkaline Phosphatase 86, C-Reactive Protein, Quantitative 4.9H, Pro-B-Type Natriuretic Peptide > 12390A, Total Protein 6.9, Albumin 3.0L, Globulin 3.9, Albumin/Globulin Ratio 0.8L Current Medications Medications (Trade) Dose Ordered Sig/Gini Route PRN Reason Start Time Stop Time Status Last Admin Dose Admin Acetaminophen (Tylenol) 650 mg Q6H PRN ORAL Temp >100.5 05/04/20 21:30 06/03/20 21:29 05/04/20 21:56 Acetaminophen/ Hydrocodone Bitart ([place] 5/325) 1 tab Q6H PRN ORAL For Pain 05/01/20 23:15 05/08/20 23:14 05/02/20 20:05 Apixaban (Eliquis) 2.5 mg BID ORAL 05/04/20 18:00 08/02/20 17:59 05/04/20 18:02 Aspirin (Ecotrin) 81 mg DAILY ORAL 05/02/20 09:00 06/16/20 08:59 05/04/20 09:09 Atorvastatin Calcium (Lipitor) 20 mg BEDTIME ORAL 05/02/20 21:00 07/31/20 20:59 05/04/20 21:34 Bisacodyl (Dulcolax) 5 mg DAILY PRN ORAL stool 05/01/20 23:15 07/30/20 23:14 Calcium Acetate (Phoslo) 1,334 mg TID ORAL 05/03/20 13:00 07/31/20 08:59 05/05/20 08:27 Docusate Sodium (Colace) 100 mg THREE TIMES A DAY ORAL 05/02/20 09:00 06/01/20 08:59 05/05/20 08:27 Epoetin Jairo (Epoetin Jairo(ESRD on dialysis)) 10,000 unit SUBQ 05/02/20 21:00 07/31/20 20:59 05/02/20 20:31 Hydralazine HCl (Apresoline) 25 mg Q4H PRN ORAL For BP over 160 systolic 05/02/20 10:15 07/31/20 10:14 Levetiracetam (Keppra) 500 mg EVERY 12 HOURS ORAL 05/02/20 09:00 06/16/20 08:59 05/05/20 08:28 Metoprolol Succinate (Toprol XL) 25 mg Q12HR ORAL 05/04/20 09:00 07/31/20 12:59 05/04/20 21:38 Pantoprazole (Protonix) 40 mg BID ORAL 05/02/20 18:00 06/01/20 08:59 05/05/20 08:27 Sevelamer Carbonate (Renvela) 1,600 mg THREE TIMES A DAY ORAL 05/02/20 13:00 07/31/20 08:59 05/05/20 08:28 Sitagliptin Phosphate (Januvia) 25 mg DAILY ORAL 05/02/20 09:00 06/01/20 08:59 05/05/20 08:28 Sucralfate (Carafate) 1 gm BID ORAL 05/03/20 18:00 07/31/20 08:59 05/05/20 08:28 Assessment/Plan Assessment/Plan IMPRESSION: 1. Pulmonary edema. 2. ESRD, on dialysis. 3. Hypertension. 4. Multiple falls. DISCUSSION: Currently, patient is saturating well on room air. Continue HD per nephrology. I will follow carefully. Andriy Jaquez Omar Syed MD May 05, 2020 10:16
--- NOTE | 2020-05-05 11:07 | Cardiac Electrophysiology PN ---
Assessment/Plan Assessment/Plan 1. Atrial fibrillation with rapid ventricular response. Converted to SR. On Toprol-XL 25 bid . Was on Coumadin at home. Switched to Eliquis 2.5 mg b.i.d. 2. NSTEMI Troponin 0.3> 3.o > 6. Down to 4.63. No CP on Aspirin, Toprol and Lipitor. Off Plavix ECGs only Ns ST-T changes. Will transfer for cardiac cath to [facility] after stabilization 3. Hypertension. Toprol 25 bid. 4. End-stage renal disease, on hemodialysis. 5. Hyperlipidemia on Lipitor. 6. Anemia, on Epogen. 7. Seizures, on Keppra. DW Dr. Gomes, Dr White, RN and pharmacist Subjective Subjective No CP or SOB. Converted to SR 05/03/20. Troponin now coming down. Objective Last 24 Hour Vital Signs Date Time Temp Pulse Resp B/P (MAP) Pulse Ox O2 Delivery O2 Flow Rate FiO2 05/05/20 08:24 75 95/48 05/05/20 08:00 77 05/05/20 08:00 98.9 75 20 95/48 (64) 05/05/20 04:00 99.3 85 20 107/60 (76) 05/05/20 04:00 77 05/05/20 00:00 79 05/05/20 00:00 99.0 81 17 104/50 (68) 98 05/04/20 22:26 99.0 05/04/20 21:38 80 112/55 05/04/20 21:00 Room Air 05/04/20 20:00 81 05/04/20 20:00 101.5 81 17 128/51 (76) 97 05/04/20 16:00 98.2 79 20 133/61 (85) 98 05/04/20 16:00 79 05/04/20 12:00 71 05/04/20 12:00 98.1 68 17 131/56 (81) 98 Intake and Output 05/04/20 05/05/20 19:00 07:00 Intake Total 400 ml 360 ml Output Total 4000 ml Balance -3600 ml 360 ml Intake Oral 400 ml 360 ml Hemodialysis UF 4000 ml # Voids 1 1 # Bowel Movements 1 1 Laboratory Tests Test 05/04/20 13:00 05/05/20 06:20 Hepatitis B Surface Antigen Negative (NEGATIVE) White Blood Count 7.3 K/UL (4.8-10.8) Red Blood Count 2.69 M/UL (4.20-5.40) L Hemoglobin 7.8 G/DL (12.0-16.0) L Hematocrit 25.0 % (37.0-47.0) L Mean Corpuscular Volume 93 FL (80-99) Mean Corpuscular Hemoglobin 29.0 PG (27.0-31.0) Mean Corpuscular Hemoglobin Concent 31.1 G/DL (32.0-36.0) L Red Cell Distribution Width 13.4 % (11.6-14.8) Platelet Count 116 K/UL (150-450) L Mean Platelet Volume 8.0 FL (6.5-10.1) Neutrophils (%) (Auto) % (45.0-75.0) Lymphocytes (%) (Auto) % (20.0-45.0) Monocytes (%) (Auto) % (1.0-10.0) Eosinophils (%) (Auto) % (0.0-3.0) Basophils (%) (Auto) % (0.0-2.0) Differential Total Cells Counted 100 Neutrophils % (Manual) 80 % (45-75) H Lymphocytes % (Manual) 9 % (20-45) L Monocytes % (Manual) 6 % (1-10) Eosinophils % (Manual) 5 % (0-3) H Basophils % (Manual) 0 % (0-2) Band Neutrophils 0 % (0-8) Platelet Estimate Decreased L Platelet Morphology Normal Hypochromasia 1+ Sodium Level 135 MMOL/L (136-145) L Potassium Level 3.8 MMOL/L (3.5-5.1) Chloride Level 98 MMOL/L (98-107) Carbon Dioxide Level 27 MMOL/L (21-32) Anion Gap 10 mmol/L (5-15) Blood Urea Nitrogen 43 mg/dL (7-18) H Creatinine 8.5 MG/DL (0.55-1.30) H Estimat Glomerular Filtration Rate 5.7 mL/min (>60) Glucose Level 100 MG/DL (74-106) Uric Acid 3.4 MG/DL (2.6-7.2) Calcium Level 8.3 MG/DL (8.5-10.1) L Phosphorus Level 3.6 MG/DL (2.5-4.9) Magnesium Level 2.6 MG/DL (1.8-2.4) H Total Bilirubin 0.3 MG/DL (0.2-1.0) Aspartate Amino Transf (AST/SGOT) 23 U/L (15-37) Alanine Aminotransferase (ALT/SGPT) 22 U/L (12-78) Alkaline Phosphatase 86 U/L (46-116) C-Reactive Protein, Quantitative 4.9 mg/dL (0.00-0.90) H Pro-B-Type Natriuretic Peptide > 06824 pg/mL (0-125) H Total Protein 6.9 G/DL (6.4-8.2) Albumin 3.0 G/DL (3.4-5.0) L Globulin 3.9 g/dL Albumin/Globulin Ratio 0.8 (1.0-2.7) L Objective HEAD AND NECK: Showed no JVD. LUNGS: Coarse rhonchi. CARDIOVASCULAR: Shows irregularly irregular S1 and S2 with no gallop or murmur. ABDOMEN: Soft. EXTREMITIES: AV shunt in the left arm. Jayjay Alicea MD May 05, 2020 11:07
[2020-05-05 12:00] VITALS: BP 119/73
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
--- NOTE | 2020-05-05 15:16 | NUR ---
NURSE NOTES: Called and left a voicemail for Dr. White regarding 102.6 temperature, patient denies chest pain, SOB, patient remains alert and oriented x4. Patient in stable condition, awaiting Dr. White response, gave tylenol.
--- NOTE | 2020-05-05 15:30 | NUR ---
NURSE NOTES: Per Dr. White, continue blood transfusion despite temperature elevation.
[2020-05-05 16:00] VITALS: BP 100/45
--- NOTE | 2020-05-05 19:30 | NUR ---
NURSE HAND-OFF REPORT: Important Events on Shift: Alert and oriented x3, last temp: 101.1 (trending down), responsive to verbal and tactile stimuli Patient Status: full code, stable condition Diet: renal Pending Orders: [] Pending Results/Labs:[] Pending MD notification:[] Latest Vital Signs: Temperature 102.2 , Pulse 85 , B/P 100 /45 , Respiratory Rate 18 , O2 SAT 98 , Room Air, O2 Flow Rate . Vital Sign Comment: [] EKG Rhythm: Sinus Rhythm Rhythm change?: N Notified?: Y -Dr. Deanne ARMSTRONG Response: Stat Echo Latest Taylor Fall Score: 60 Fall Risk: High Risk Safety Measures: Call light Within Reach, Bed Alarm Zone 1, Side Rails Side Rails x3, Bed position Low and Locked. Fall Precautions: Yellow Socks Door Sign Patient Fall Education Report given to SEEMA Cook.
--- NOTE | 2020-05-05 19:35 | NUR ---
NURSE NOTES: The patient is alert and oriented x3 but appear weak and sleepy.She is on Room air with Resp even and unlabored.She is status dialysis and has a left upper arm A/V shunt, Bruit and thrill all present on assessment.The patient also has a Right Arm 20g IV line that is patent and asymptomatic. The bed in low level and locked with call light within easy reach and bed side rails up x2. will continue to monitor as indicated
[2020-05-05 20:00] VITALS: BP 96/47
[2020-05-05] MEDS: Epoetin Alfa-EPBX(ESRD on dialysis)10,000 unit/ml vial SUBQ SCH (21:33)
[2020-05-06] VITALS: BP 98/49
[2020-05-06 04:00] VITALS: BP 103/56
--- NOTE | 2020-05-06 06:00 | NUR ---
NURSE NOTES: The patient was running a Temp of about 100.8F and Dr. White was notified, however she received Tylenol 650 mg and the temp decreases to 99.4 F.
--- NOTE | 2020-05-06 07:10 | NUR ---
NURSE HAND-OFF: Important Events on Shift:The patient was running a Temp of about 100.8F and Dr. White was notified, however she received Tylenol 650 mg and the temp decreases to 99.4 F. Patient Status: Diet: Pending Orders: Pending Results/Labs: Pending MD notification: Latest Vital Signs: Temperature 99.4 , Pulse 73 , B/P 103 /56 , Respiratory Rate 19 , O2 SAT 98 , Room Air, O2 Flow Rate . Vital Sign Comment: Latest Taylor Fall Score: 60 Fall Risk: High Risk Safety Measures: Call light Within Reach, Bed Alarm Zone 1, Side Rails Side Rails x3, Bed position Low and Locked. Fall Precautions: Yellow Socks Door Sign Patient Fall Education Report given to .
[2020-05-06 07:24] LABS: BASOPHILS % (AUTO) 0.4 % (0.0-2.0); EOSINOPHILS % (AUTO) 1.1 % (0.0-3.0); HEMATOCRIT 27.6 % (37.0-47.0); HEMOGLOBIN 8.9 G/DL (12.0-16.0); LYMPHOCYTES % (AUTO) 8.3 % (20.0-45.0); MEAN CORPUSCULAR VOLUME 91 FL (80-99); MONOCYTES % (AUTO) 12.9 % (1.0-10.0); NEUTROPHILS % (AUTO) 77.3 % (45.0-75.0); PLATELET COUNT 112 K/UL (150-450); RED BLOOD COUNT 3.03 M/UL (4.20-5.40); RED CELL DISTRIBUTION WIDTH 13.4 % (11.6-14.8); WHITE BLOOD COUNT 12.2 K/UL (4.8-10.8)
--- NOTE | 2020-05-06 07:37 | Cardiac Electrophysiology PN ---
Assessment/Plan Assessment/Plan 1. Atrial fibrillation with rapid ventricular response. Converted to SR. On Toprol-XL 25 bid . Was on Coumadin at home. Now on Eliquis 2.5 mg b.i.d. 2. NSTEMI Troponin 0.3> 3.o > 6. Down to 4.63. No CP on Aspirin, Toprol and Lipitor. Off Plavix ECGs only Ns ST-T changes. Will transfer for cardiac cath to [facility] after stabilization 3. Hypertension. Toprol 25 bid. 4. End-stage renal disease, on hemodialysis. 5. Hyperlipidemia on Lipitor. 6. Anemia, on Epogen. 7. Seizures, on Keppra. 8. Fever 102.4 on 05/05, Abx per ID DW Dr. Gomes, Dr White and RN Subjective Subjective No CP or SOB. Converted to SR 05/03/20. Troponin coming down.Had Fever 100.8. HD pending today Objective Last 24 Hour Vital Signs Date Time Temp Pulse Resp B/P (MAP) Pulse Ox O2 Delivery O2 Flow Rate FiO2 05/06/20 04:00 99.4 73 19 103/56 (72) 05/06/20 04:00 73 05/06/20 00:00 70 05/06/20 00:00 99.1 76 20 98/49 (65) 05/05/20 22:02 98.0 05/05/20 21:00 77 96/47 05/05/20 20:00 83 05/05/20 20:00 100.8 77 18 96/47 (63) 05/05/20 18:50 101.1 05/05/20 18:22 Room Air 05/05/20 16:00 85 05/05/20 16:00 102.2 85 18 100/45 (63) 05/05/20 15:45 102.4 05/05/20 12:00 82 05/05/20 12:00 98.4 82 20 119/73 (88) 05/05/20 08:24 75 95/48 05/05/20 08:00 77 05/05/20 08:00 98.9 75 20 95/48 (64) Intake and Output 05/05/20 05/06/20 18:59 06:59 Intake Total 240 ml 160 ml Balance 240 ml 160 ml Intake Oral 240 ml 160 ml # Voids 2 Laboratory Tests Test 05/06/20 06:00 White Blood Count Pending Red Blood Count Pending Hemoglobin Pending Hematocrit Pending Mean Corpuscular Volume Pending Mean Corpuscular Hemoglobin Pending Mean Corpuscular Hemoglobin Concent Pending Red Cell Distribution Width Pending Platelet Count Pending Mean Platelet Volume Pending Neutrophils (%) (Auto) Pending Lymphocytes (%) (Auto) Pending Monocytes (%) (Auto) Pending Eosinophils (%) (Auto) Pending Basophils (%) (Auto) Pending Sodium Level Pending Potassium Level Pending Chloride Level Pending Carbon Dioxide Level Pending Blood Urea Nitrogen Pending Creatinine Pending Estimat Glomerular Filtration Rate Pending Glucose Level Pending Calcium Level Pending Phosphorus Level Pending Magnesium Level Pending Total Bilirubin Pending Aspartate Amino Transf (AST/SGOT) Pending Alanine Aminotransferase (ALT/SGPT) Pending Alkaline Phosphatase Pending C-Reactive Protein, Quantitative Pending Pro-B-Type Natriuretic Peptide Pending Total Protein Pending Albumin Pending Globulin Pending Objective HEAD AND NECK: No JVD. LUNGS: Coarse rhonchi. CARDIOVASCULAR: Irregularly irregular S1 and S2 with no gallop or murmur. ABDOMEN: Soft. EXTREMITIES: AV shunt in the left arm. Jayjay Alicea MD May 06, 2020 07:37
[2020-05-06 07:42] LABS: ALANINE AMINOTRANSFERASE 25 U/L (12-78); ALBUMIN 2.8 G/DL (3.4-5.0); ALBUMIN/GLOBULIN RATIO 0.7 (1.0-2.7); ALKALINE PHOSPHATASE 81 U/L (46-116); ANION GAP 14 mmol/L (5-15); ASPARTATE AMINO TRANSFERASE 19 U/L (15-37); BILIRUBIN,TOTAL 0.4 MG/DL (0.2-1.0); BLOOD UREA NITROGEN 60 mg/dL (7-18); CARBON DIOXIDE 24 MMOL/L (21-32); CHLORIDE 98 MMOL/L (98-107); CREATININE 10.5 MG/DL (0.55-1.30); PHOSPHORUS 3.8 MG/DL (2.5-4.9); SODIUM 136 MMOL/L (136-145)
--- NOTE | 2020-05-06 07:55 | NUR ---
NURSE HAND-OFF REPORT: Important Events on Shift:[] Patient Status: [] Diet: [] Pending Orders: [] Pending Results/Labs:[] Pending MD notification:[] Latest Vital Signs: Temperature 99.4 , Pulse 73 , B/P 103 /56 , Respiratory Rate 19 , O2 SAT 98 , Room Air, O2 Flow Rate . Vital Sign Comment: [] EKG Rhythm: Sinus Rhythm Rhythm change?: N MD Notified?: Norma Alicea MD Response: Stat Echo Latest Taylor Fall Score: 60 Fall Risk: High Risk Safety Measures: Call light Within Reach, Bed Alarm Zone 1, Side Rails Side Rails x3, Bed position Low and Locked. Fall Precautions: Yellow Socks Door Sign Patient Fall Education Report given to [].
[2020-05-06 08:00] VITALS: BP 103/61
--- NOTE | 2020-05-06 08:11 | NUR ---
NURSE NOTES: The patient was seen in bed asleep with stable vital signs. The bed alarm was set to zone 1, the bed was placed in the lowest position and locked and side rails were placed x3.
[2020-05-06] MEDS: sitaGLIPtin 25mg tab ORAL SCH (09:15)
[2020-05-06] MEDS: Docusate 100mg cap ORAL SCH ×3 (09:15→18:46)
[2020-05-06] MEDS: Aspirin EC 81mg tab ORAL SCH (09:16)
[2020-05-06] MEDS: Sucralfate 1gm tab ORAL SCH ×2 (09:16→18:47)
[2020-05-06] MEDS: Metoprolol Succinate XL 50mg tab ORAL SCH ×2 (09:18→21:00)
[2020-05-06] MEDS: Eliquis 2.5mg tablet ORAL SCH ×2 (09:18→18:47)
[2020-05-06] MEDS: Renvela 800mg Pkt ORAL SCH ×3 (09:19→18:47)
--- NOTE | 2020-05-06 09:48 | NUR ---
RD ASSESSMENT & RECOMMENDATIONS SEE CARE ACTIVITY FOR COMPLETE ASSESSMENT DAILY ESTIMATED NEEDS: Needs based on ESRD, HD, obesity/ 77kg abw 23-25 kcals/kg 5504-6542 total kcals 1.2-1.8 g protein/kg 92-138 g total protein 20-22 mL/kg 5333-4831 total fluid mLs NUTRITION DIAGNOSIS: Altered nutrition related lab values R/T ESRD and diabetes as evidenced by elev creat (10.5), elev BNP >03201, A1C 6.3. CURRENT DIET:RENAL PO DIET RECOMMENDATIONS: Renal + CCHO Med/ texture as tolerated ADDITIONAL RECOMMENDATIONS: * Daily standing or calibrated bedscale wt * Rec accuchecks: h/o DM, monitor need for nISS * Nephrovite x 1 * Monitor PO intake: mostly 100%, refused last 2 meals, w/ fevers
--- NOTE | 2020-05-06 10:23 | Pulmonology Progress Note ---
Subjective ROS Limited/Unobtainable: No Interval Events: None reported overnight Constitutional: Reports: no symptoms HEENT: Repors: no symptoms Respiratory: Reports: no symptoms Cardiovascular: Reports: no symptoms Gastrointestinal/Abdominal: Reports: no symptoms Genitourinary: Reports: no symptoms Allergies: Coded Allergies: No Known Allergies (Unverified , 05/24/13) Objective Last 24 Hour Vital Signs Date Time Temp Pulse Resp B/P (MAP) Pulse Ox O2 Delivery O2 Flow Rate FiO2 05/06/20 09:18 71 103/61 05/06/20 08:00 76 05/06/20 08:00 98.7 71 21 103/61 (75) 05/06/20 04:00 99.4 73 19 103/56 (72) 05/06/20 04:00 73 05/06/20 00:00 70 05/06/20 00:00 99.1 76 20 98/49 (65) 05/05/20 22:02 98.0 05/05/20 21:00 77 96/47 05/05/20 20:00 83 05/05/20 20:00 100.8 77 18 96/47 (63) 05/05/20 18:50 101.1 05/05/20 18:22 Room Air 05/05/20 16:00 85 05/05/20 16:00 102.2 85 18 100/45 (63) 05/05/20 15:45 102.4 05/05/20 12:00 82 05/05/20 12:00 98.4 82 20 119/73 (88) Intake and Output 05/05/20 05/06/20 19:00 07:00 Intake Total 240 ml 160 ml Balance 240 ml 160 ml Intake Oral 240 ml 160 ml # Voids 2 HEENT: normocephalic Respiratory: chest wall non-tender, lungs clear Cardiovascular: normal peripheral pulses, regularly irregular Abdomen: normal bowel sounds Laboratory Tests 05/06/20 06:00: White Blood Count 12.2#H, Red Blood Count 3.03L, Hemoglobin 8.9L, Hematocrit 27.6L, Mean Corpuscular Volume 91, Mean Corpuscular Hemoglobin 29.2, Mean Corpuscular Hemoglobin Concent 32.0, Red Cell Distribution Width 13.4, Platelet Count 112L, Mean Platelet Volume 8.4, Neutrophils (%) (Auto) 77.3H, Lymphocytes (%) (Auto) 8.3L, Monocytes (%) (Auto) 12.9H, Eosinophils (%) (Auto) 1.1, Basophils (%) (Auto) 0.4, Sodium Level 136, Potassium Level 4.0, Chloride Level 98, Carbon Dioxide Level 24, Anion Gap 14, Blood Urea Nitrogen 60H, Creatinine 10.5H, Estimat Glomerular Filtration Rate 4.5, Glucose Level 122H, Calcium Level 8.0L, Phosphorus Level 3.8, Magnesium Level 2.6H, Total Bilirubin 0.4, Aspartate Amino Transf (AST/SGOT) 19, Alanine Aminotransferase (ALT/SGPT) 25, Alkaline Phosphatase 81, C-Reactive Protein, Quantitative 22.9H, Pro-B-Type Natriuretic Peptide > 07661R, Total Protein 6.7, Albumin 2.8L, Globulin 3.9, Albumin/Globulin Ratio 0.7L Current Medications Medications (Trade) Dose Ordered Sig/Gini Route PRN Reason Start Time Stop Time Status Last Admin Dose Admin Acetaminophen (Tylenol) 650 mg Q6H PRN ORAL Temp >100.5 05/04/20 21:30 06/03/20 21:29 05/05/20 21:32 Acetaminophen/ Hydrocodone Bitart ([place] 5/325) 1 tab Q6H PRN ORAL For Pain 05/01/20 23:15 05/08/20 23:14 05/02/20 20:05 Apixaban (Eliquis) 2.5 mg BID ORAL 05/04/20 18:00 08/02/20 17:59 05/06/20 09:18 Aspirin (Ecotrin) 81 mg DAILY ORAL 05/02/20 09:00 06/16/20 08:59 05/06/20 09:16 Atorvastatin Calcium (Lipitor) 20 mg BEDTIME ORAL 05/02/20 21:00 07/31/20 20:59 05/05/20 21:31 Bisacodyl (Dulcolax) 5 mg DAILY PRN ORAL stool 05/01/20 23:15 07/30/20 23:14 Calcium Acetate (Phoslo) 1,334 mg TID ORAL 05/03/20 13:00 07/31/20 08:59 05/06/20 09:15 Docusate Sodium (Colace) 100 mg THREE TIMES A DAY ORAL 05/02/20 09:00 06/01/20 08:59 05/06/20 09:15 Epoetin Jairo (Epoetin Jairo(ESRD on dialysis)) 10,000 unit SUBQ 05/02/20 21:00 07/31/20 20:59 05/05/20 21:33 Hydralazine HCl (Apresoline) 25 mg Q4H PRN ORAL For BP over 160 systolic 05/02/20 10:15 07/31/20 10:14 Levetiracetam (Keppra) 500 mg EVERY 12 HOURS ORAL 05/02/20 09:00 06/16/20 08:59 05/06/20 09:18 Metoprolol Succinate (Toprol XL) 25 mg Q12HR ORAL 05/04/20 09:00 07/31/20 12:59 05/06/20 09:18 Pantoprazole (Protonix) 40 mg BID ORAL 05/02/20 18:00 06/01/20 08:59 05/06/20 09:15 Sevelamer Carbonate (Renvela) 1,600 mg THREE TIMES A DAY ORAL 05/02/20 13:00 07/31/20 08:59 05/06/20 09:19 Sitagliptin Phosphate (Januvia) 25 mg DAILY ORAL 05/02/20 09:00 06/01/20 08:59 05/06/20 09:15 Sucralfate (Carafate) 1 gm BID ORAL 05/03/20 18:00 07/31/20 08:59 05/06/20 09:16 Assessment/Plan Assessment/Plan IMPRESSION: 1. Pulmonary edema. 2. ESRD, on dialysis. 3. Hypertension. 4. Multiple falls. DISCUSSION: Currently, patient is saturating well on room air. Continue HD per nephrology. I will follow carefully. Andriy Jaquez Omar Syed MD May 06, 2020 10:23
[2020-05-06 12:00] VITALS: BP 131/71
--- NOTE | 2020-05-06 12:43 | Nephrology Progress Note ---
Assessment/Plan Problem List: (1) Hyperkalemia (2) Anemia in chronic kidney disease (3) ESRD (end stage renal disease) on dialysis (4) CVA (cerebrovascular accident) Assessment: By history (5) Coronary artery disease Assessment: Rising troponin I Assessment Contusion of hip, right End-stage renal disease, on hemodialysis Tuesday. Missed her last dialysis session. Presented with hyperkalemia History of anemia of chronic kidney disease History of hydronephrosis History of CVA Plan May 06: Patient due for dialysis today. Labs reviewed. Hemoglobin up to 8.9. Continue as is. Continue per cardiology recommendation. May 05: Patient dialyzed yesterday. Due for dialysis tomorrow. Labs reviewed. Medication list reviewed. Hemoglobin 7.8. Will aim to transfuse 1 unit of packed RBCs. May 04: Patient seen during dialysis. Tolerating well. Labs reviewed. Medication list reviewed. Will discuss with boardinghouse keeper regarding initiation of Plavix and Eliquis. Troponin I lower today. Continue dialysis as needed. May 03: Labs and medication list reviewed. Blood pressure hovering around 90 systolic. Will cut down on Lopressor dose. Increased PhosLo to 2 tablets 3 times daily. Hemodialysis tomorrow. BP support with albumin. Continue per cardiology advice. 1 dose of Plavix given. Questionable need for heparin drip. May 02: Dialysis today as soon as possible for hyperkalemia, Adjust blood pressure medication Epogen for anemia Blood sugar control Per orders Subjective ROS Limited/Unobtainable: No Constitutional: Reports: malaise Objective Objective Last 24 Hour Vital Signs Date Time Temp Pulse Resp B/P (MAP) Pulse Ox O2 Delivery O2 Flow Rate FiO2 05/06/20 12:00 100.4 74 20 131/71 (91) 05/06/20 09:18 71 103/61 05/06/20 09:00 Room Air 05/06/20 08:00 76 05/06/20 08:00 98.7 71 21 103/61 (75) 05/06/20 04:00 99.4 73 19 103/56 (72) 05/06/20 04:00 73 05/06/20 00:00 70 05/06/20 00:00 99.1 76 20 98/49 (65) 05/05/20 22:02 98.0 05/05/20 21:00 77 96/47 05/05/20 20:00 83 05/05/20 20:00 100.8 77 18 96/47 (63) 05/05/20 18:50 101.1 05/05/20 18:22 Room Air 05/05/20 16:00 85 05/05/20 16:00 102.2 85 18 100/45 (63) 05/05/20 15:45 102.4 Intake and Output 05/05/20 05/06/20 19:00 07:00 Intake Total 240 ml 160 ml Balance 240 ml 160 ml Intake Oral 240 ml 160 ml # Voids 2 Current Medications Medications (Trade) Dose Ordered Sig/Gini Route PRN Reason Start Time Stop Time Status Last Admin Dose Admin Acetaminophen (Tylenol) 650 mg Q6H PRN ORAL Temp >100.5 05/04/20 21:30 06/03/20 21:29 05/05/20 21:32 Acetaminophen/ Hydrocodone Bitart ([place] 5/325) 1 tab Q6H PRN ORAL For Pain 05/01/20 23:15 05/08/20 23:14 05/02/20 20:05 Apixaban (Eliquis) 2.5 mg BID ORAL 05/04/20 18:00 08/02/20 17:59 05/06/20 09:18 Aspirin (Ecotrin) 81 mg DAILY ORAL 05/02/20 09:00 06/16/20 08:59 05/06/20 09:16 Atorvastatin Calcium (Lipitor) 20 mg BEDTIME ORAL 05/02/20 21:00 07/31/20 20:59 05/05/20 21:31 Bisacodyl (Dulcolax) 5 mg DAILY PRN ORAL stool 05/01/20 23:15 07/30/20 23:14 Calcium Acetate (Phoslo) 1,334 mg TID ORAL 05/03/20 13:00 07/31/20 08:59 05/06/20 09:15 Docusate Sodium (Colace) 100 mg THREE TIMES A DAY ORAL 05/02/20 09:00 06/01/20 08:59 05/06/20 09:15 Epoetin Jairo (Epoetin Jairo(ESRD on dialysis)) 10,000 unit TUE-TUE-TUE SUBQ 05/02/20 21:00 07/31/20 20:59 05/05/20 21:33 Hydralazine HCl (Apresoline) 25 mg Q4H PRN ORAL For BP over 160 systolic 05/02/20 10:15 07/31/20 10:14 Levetiracetam (Keppra) 500 mg EVERY 12 HOURS ORAL 05/02/20 09:00 06/16/20 08:59 05/06/20 09:18 Metoprolol Succinate (Toprol XL) 25 mg Q12HR ORAL 05/04/20 09:00 07/31/20 12:59 05/06/20 09:18 Pantoprazole (Protonix) 40 mg BID ORAL 05/02/20 18:00 06/01/20 08:59 05/06/20 09:15 Sevelamer Carbonate (Renvela) 1,600 mg THREE TIMES A DAY ORAL 05/02/20 13:00 07/31/20 08:59 05/06/20 09:19 Sitagliptin Phosphate (Januvia) 25 mg DAILY ORAL 05/02/20 09:00 06/01/20 08:59 05/06/20 09:15 Sucralfate (Carafate) 1 gm BID ORAL 05/03/20 18:00 07/31/20 08:59 05/06/20 09:16 Laboratory Tests 05/06/20 06:00: White Blood Count 12.2#H, Red Blood Count 3.03L, Hemoglobin 8.9L, Hematocrit 27.6L, Mean Corpuscular Volume 91, Mean Corpuscular Hemoglobin 29.2, Mean Anisha uscular Hemoglobin Concent 32.0, Red Cell Distribution Width 13.4, Platelet Count 112L, Mean Platelet Volume 8.4, Neutrophils (%) (Auto) 77.3H, Lymphocytes (%) (Auto) 8.3L, Monocytes (%) (Auto) 12.9H, Eosinophils (%) (Auto) 1.1, Basophils (%) (Auto) 0.4, Sodium Level 136, Potassium Level 4.0, Chloride Level 98, Carbon Dioxide Level 24, Anion Gap 14, Blood Urea Nitrogen 60H, Creatinine 10.5H, Estimat Glomerular Filtration Rate 4.5, Glucose Level 122H, Calcium Level 8.0L, Phosphorus Level 3.8, Magnesium Level 2.6H, Total Bilirubin 0.4, Aspartate Amino Transf (AST/SGOT) 19, Alanine Aminotransferase (ALT/SGPT) 25, Alkaline Phosphatase 81, C-Reactive Protein, Quantitative 22.9H, Pro-B-Type Natriuretic Peptide > 29045S, Total Protein 6.7, Albumin 2.8L, Globulin 3.9, Albumin/Globulin Ratio 0.7L Height (Feet): 5 Height (Inches): 2.00 Weight (Pounds): 166 General Appearance: no apparent distress, lethargic Cardiovascular: normal rate Respiratory/Chest: decreased breath sounds Abdomen: soft Supa Gomes MD May 06, 2020 12:43
--- NOTE | 2020-05-06 14:19 | General Progress Note ---
Subjective Allergies: Coded Allergies: No Known Allergies (Unverified , 05/24/13) Objective Last 24 Hour Vital Signs Date Time Temp Pulse Resp B/P (MAP) Pulse Ox O2 Delivery O2 Flow Rate FiO2 05/06/20 12:00 100.4 74 20 131/71 (91) 05/06/20 12:00 75 05/06/20 09:18 71 103/61 05/06/20 09:00 Room Air 05/06/20 08:00 76 05/06/20 08:00 98.7 71 21 103/61 (75) 05/06/20 04:00 99.4 73 19 103/56 (72) 05/06/20 04:00 73 05/06/20 00:00 70 05/06/20 00:00 99.1 76 20 98/49 (65) 05/05/20 22:02 98.0 05/05/20 21:00 77 96/47 05/05/20 20:00 83 05/05/20 20:00 100.8 77 18 96/47 (63) 05/05/20 18:50 101.1 05/05/20 18:22 Room Air 05/05/20 16:00 85 05/05/20 16:00 102.2 85 18 100/45 (63) 05/05/20 15:45 102.4 Intake and Output 05/05/20 05/06/20 19:00 07:00 Intake Total 240 ml 160 ml Balance 240 ml 160 ml Intake Oral 240 ml 160 ml # Voids 2 Laboratory Tests 05/06/20 06:00: White Blood Count 12.2#H, Red Blood Count 3.03L, Hemoglobin 8.9L, Hematocrit 27.6L, Mean Corpuscular Volume 91, Mean Corpuscular Hemoglobin 29.2, Mean Corpuscular Hemoglobin Concent 32.0, Red Cell Distribution Width 13.4, Platelet Count 112L, Mean Platelet Volume 8.4, Neutrophils (%) (Auto) 77.3H, Lymphocytes (%) (Auto) 8.3L, Monocytes (%) (Auto) 12.9H, Eosinophils (%) (Auto) 1.1, Basophils (%) (Auto) 0.4, Sodium Level 136, Potassium Level 4.0, Chloride Level 98, Carbon Dioxide Level 24, Anion Gap 14, Blood Urea Nitrogen 60H, Creatinine 10.5H, Estimat Glomerular Filtration Rate 4.5, Glucose Level 122H, Calcium Level 8.0L, Phosphorus Level 3.8, Magnesium Level 2.6H, Total Bilirubin 0.4, Aspartate Amino Transf (AST/SGOT) 19, Alanine Aminotransferase (ALT/SGPT) 25, Alkaline Phosphatase 81, C-Reactive Protein, Quantitative 22.9H, Pro-B-Type Natriuretic Peptide > 73277H, Total Protein 6.7, Albumin 2.8L, Globulin 3.9, Albumin /Globulin Ratio 0.7L Height (Feet): 5 Height (Inches): 2.00 Weight (Pounds): 166 Assessment/Plan Assessment/Plan: S: I am ok O: appears weak, frail, imbalance Exam: Gastrointestinal Problems: No Dialysis: Yes - av graft left arm-(T-TH-)LAST DIALYSIS - Neurological Problems: Yes Cerebrovascular Accident: Yes - 2011- AT/NC, chest: clear, Hreat: S1S2 RR, Abd: soft, MS: No gross lateralized motor deficit, atrophied muscle, wide gate balance , Neuro: AOX2, declined memory, Meds and labs: Reviewed and reconciled, including Eliquis and ASA Medical Decision Making Diagnostic Impression: Primary Impression: Hyperkalemia with possible missed HD- Symptomatic NSTEMI PAF ESRD (end stage renal disease) on dialysis Anemia D63.1 - Anemia in chronic kidney disease; Z99.2 - Dependence on renal dialysis DM Hyperlipidemia Imbalance- dependent for ADLS- multiple falls Fever Will followup with serial troponin level Notes from Cardiology reviewed , once clear from cardiology viewpoint will transfer to [facility] for LVCC Discussion : Fever, with no definite source of infection Obtain blood culture, CXR Hold on initiation of abx ID- Dr Garcia is consulted Cristian White MD May 06, 2020 14:19
--- NOTE | 2020-05-06 15:00 | NUR ---
NURSE NOTES: Blood culture x2 collected and sent down to lab.
[2020-05-06 16:00] VITALS: BP 102/71
[2020-05-06] MEDS: HYDROcodone/Acetamin 5/325 tab ORAL PRN (18:48)
--- NOTE | 2020-05-06 19:22 | NUR ---
NURSE HAND-OFF REPORT: Important Events on Shift:[HD, blood culture x2] Patient Status: [FULL CODE] Diet: [renal] Pending Orders: [] Pending Results/Labs:[] Pending MD notification:[] Latest Vital Signs: Temperature 98.1 , Pulse 69 , B/P 102 /71 , Respiratory Rate 20 , O2 SAT 98 , Room Air, O2 Flow Rate . Vital Sign Comment: [] EKG Rhythm: Sinus Rhythm Rhythm change?: N MD Notified?: Y -Dr. Deanne ARMSTRONG Response: Stat Echo Latest Taylor Fall Score: 60 Fall Risk: High Risk Safety Measures: Call light Within Reach, Bed Alarm Zone 1, Side Rails Side Rails x3, Bed position Low and Locked. Fall Precautions: Yellow Socks Door Sign Patient Fall Education Report given to [Gloria STEPHENSON].
--- NOTE | 2020-05-06 19:30 | NUR ---
NURSE NOTES: Received pt and report from SEEMA Clark. Observed pt resting in bed with both eyes closed; arousable to voice with HD nurse at bedside. Pt is A/Ox4. jewel hole finish opener is in placed; pt is NSR. IV site intact, asymptomatic, and patent. Bed is in the lowest position and locked. Call light and bedside table is within reach. No signs/symptoms of acute distress noted. Will continue plan of care.
[2020-05-06 20:00] VITALS: BP 106/49
[2020-05-07] VITALS (7 sets, daily range): BP systolic 97–123; BP diastolic 49–91
--- NOTE | 2020-05-07 07:45 | NUR ---
NURSE NOTES: RECEIVED PATIENT A/A/OX3, ABLE TO VERBALIZE NEEDS. ON HIGH [place]'S POSITION FOR BREAKFAST. ABLE TO FEED SELF INDEPENDENTLY. RESP IS EVEN AND UNLABORED. PADDED SIDERAILS SEIZURE PRECAUTION. BRUIT AND THRILL FELT ON PALPATION, LAV SHUNT. PIV PATENT AND INTACT. DENIES OF PAIN/DISCOMFORT NOTED. NO CARDIO-RESP DISTRESS NOTED. KEPT BED IN THE LOWEST POSITION. SIDERAILS ARE UPX3. BED ALARM ENGAGED AND LOCK MODE. CALL LIGHT IS WITHIN REACH. WILL CONT TO MONITOR.
--- NOTE | 2020-05-07 07:49 | NUR ---
NURSE HAND-OFF REPORT: Important Events on Shift: Pt received HD. 1L removed. Patient Status: Stable Diet: Renal Pending Orders: N Pending Results/Labs: N Pending MD notification: N Latest Vital Signs: Temperature 98.8 , Pulse 96 , B/P 99 /52 , Respiratory Rate 19 , O2 SAT 98 , Room Air, O2 Flow Rate . EKG Rhythm: Atrial Fibrillation Rhythm change?: N Latest Taylor Fall Score: 60 Fall Risk: High Risk Safety Measures: Call light Within Reach, Bed Alarm Zone 1, Side Rails Side Rails x3, Bed position Low and Locked. Fall Precautions: Yellow Socks Door Sign Patient Fall Education Report given to SEEMA Walton.
[2020-05-07] MEDS: Eliquis 2.5mg tablet ORAL SCH ×2 (08:18→17:38)
[2020-05-07] MEDS: sitaGLIPtin 25mg tab ORAL SCH (08:18)
[2020-05-07] MEDS: Docusate 100mg cap ORAL SCH ×3 (08:18→17:38)
[2020-05-07] MEDS: Aspirin EC 81mg tab ORAL SCH (08:18)
[2020-05-07] MEDS: Sucralfate 1gm tab ORAL SCH ×2 (08:19→17:38)
[2020-05-07] MEDS: Renvela 800mg Pkt ORAL SCH ×3 (08:19→17:38)
[2020-05-07] MEDS: Metoprolol Succinate XL 50mg tab ORAL SCH ×2 (08:19→21:00)
[2020-05-07] MEDS ORDERED: HYDROcodone/Acetamin 5/325 tab ORAL PRN (10:30)
--- NOTE | 2020-05-07 10:58 | Cardiac Electrophysiology PN ---
Assessment/Plan Assessment/Plan 1. Atrial fibrillation with rapid ventricular response. Converted to SR. On Toprol-XL 25 bid . Was on Coumadin at home. Now on Eliquis 2.5 mg b.i.d. 2. NSTEMI Troponin 0.3> 3.o > 6. Down to 4.63. No CP on Aspirin, Toprol and Lipitor. Off Plavix ECGs only Ns ST-T changes. Will transfer for cardiac cath to [facility] after OK with ID 3. Hypertension. Toprol 25 bid. 4. End-stage renal disease, on hemodialysis. 5. Hyperlipidemia on Lipitor. 6. Anemia, on Epogen. 7. Seizures, on Keppra. 8. Fever 102.4 on 05/05 and 100.4 last night Abx per ID DW embedded case manager, Dr White and RN Subjective Subjective No CP or SOB. Converted to SR 05/03/20. Had Fever 100.8 yesterday. Had HD yesterday with 1 liter out. Objective Last 24 Hour Vital Signs Date Time Temp Pulse Resp B/P (MAP) Pulse Ox O2 Delivery O2 Flow Rate FiO2 05/07/20 08:45 Room Air 05/07/20 08:19 61 102/91 05/07/20 08:00 97.9 61 19 102/91 (95) 97 05/07/20 04:00 96 05/07/20 04:00 98.8 96 19 99/52 (68) 05/07/20 00:00 97.7 69 19 97/49 (65) 05/07/20 00:00 69 05/06/20 22:00 100.1 05/06/20 21:00 71 103/47 05/06/20 21:00 Room Air 05/06/20 20:00 72 05/06/20 20:00 99.9 70 20 106/49 (68) 05/06/20 16:00 69 05/06/20 16:00 98.1 67 20 102/71 (81) 05/06/20 12:00 100.4 74 20 131/71 (91) 05/06/20 12:00 75 Intake and Output 05/06/20 05/07/20 18:59 06:59 Intake Total 80 ml 290 ml Output Total 1000 ml 1200 ml Balance -920 ml -910 ml Intake Oral 80 ml 290 ml Output Urine Total 1200 ml Hemodialysis UF 1000 ml # Voids 3 Objective HEAD AND NECK: No JVD. LUNGS: Coarse rhonchi. CARDIOVASCULAR: Irregularly irregular S1 and S2 with no gallop or murmur. ABDOMEN: Soft. EXTREMITIES: AV shunt in the left arm. Jayjay Alicea MD May 07, 2020 10:58
--- NOTE | 2020-05-07 11:04 | Pulmonology Progress Note ---
Subjective ROS Limited/Unobtainable: No Interval Events: None reported overnight Constitutional: Reports: no symptoms HEENT: Repors: no symptoms Respiratory: Reports: no symptoms Cardiovascular: Reports: no symptoms Gastrointestinal/Abdominal: Reports: no symptoms Genitourinary: Reports: no symptoms Allergies: Coded Allergies: No Known Allergies (Unverified , 05/24/13) Objective Last 24 Hour Vital Signs Date Time Temp Pulse Resp B/P (MAP) Pulse Ox O2 Delivery O2 Flow Rate FiO2 05/07/20 08:45 Room Air 05/07/20 08:19 61 102/91 05/07/20 08:00 97.9 61 19 102/91 (95) 97 05/07/20 04:00 96 05/07/20 04:00 98.8 96 19 99/52 (68) 05/07/20 00:00 97.7 69 19 97/49 (65) 05/07/20 00:00 69 05/06/20 22:00 100.1 05/06/20 21:00 71 103/47 05/06/20 21:00 Room Air 05/06/20 20:00 72 05/06/20 20:00 99.9 70 20 106/49 (68) 05/06/20 16:00 69 05/06/20 16:00 98.1 67 20 102/71 (81) 05/06/20 12:00 100.4 74 20 131/71 (91) 05/06/20 12:00 75 Intake and Output 05/06/20 05/07/20 18:59 06:59 Intake Total 80 ml 290 ml Output Total 1000 ml 1200 ml Balance -920 ml -910 ml Intake Oral 80 ml 290 ml Output Urine Total 1200 ml Hemodialysis UF 1000 ml # Voids 3 HEENT: normocephalic Respiratory: chest wall non-tender, lungs clear Cardiovascular: normal peripheral pulses, regularly irregular Abdomen: normal bowel sounds Current Medications Medications (Trade) Dose Ordered Sig/Gini Route PRN Reason Start Time Stop Time Status Last Admin Dose Admin Acetaminophen (Tylenol) 650 mg Q6H PRN ORAL Temp >100.5 05/04/20 21:30 06/03/20 21:29 05/06/20 21:30 Acetaminophen/ Hydrocodone Bitart ([place] 5/325) 1 tab Q6H PRN ORAL For Pain 05/07/20 10:30 05/14/20 10:29 Apixaban (Eliquis) 2.5 mg BID ORAL 05/04/20 18:00 08/02/20 17:59 05/07/20 08:18 Aspirin (Ecotrin) 81 mg DAILY ORAL 05/02/20 09:00 06/16/20 08:59 05/07/20 08:18 Atorvastatin Calcium (Lipitor) 20 mg BEDTIME ORAL 05/02/20 21:00 07/31/20 20:59 05/06/20 21:30 Bisacodyl (Dulcolax) 5 mg DAILY PRN ORAL stool 05/01/20 23:15 07/30/20 23:14 Calcium Acetate (Phoslo) 1,334 mg TID ORAL 05/03/20 13:00 07/31/20 08:59 05/07/20 08:18 Docusate Sodium (Colace) 100 mg THREE TIMES A DAY ORAL 05/02/20 09:00 06/01/20 08:59 05/07/20 08:18 Epoetin Jairo (Epoetin Jairo(ESRD on dialysis)) 10,000 unit SUBQ 05/02/20 21:00 07/31/20 20:59 05/05/20 21:33 Hydralazine HCl (Apresoline) 25 mg Q4H PRN ORAL For BP over 160 systolic 05/02/20 10:15 07/31/20 10:14 Levetiracetam (Keppra) 500 mg EVERY 12 HOURS ORAL 05/02/20 09:00 06/16/20 08:59 05/07/20 08:18 Metoprolol Succinate (Toprol XL) 25 mg Q12HR ORAL 05/04/20 09:00 07/31/20 12:59 05/06/20 09:18 Pantoprazole (Protonix) 40 mg BID ORAL 05/02/20 18:00 06/01/20 08:59 05/07/20 08:18 Sevelamer Carbonate (Renvela) 1,600 mg THREE TIMES A DAY ORAL 05/02/20 13:00 07/31/20 08:59 05/07/20 08:19 Sitagliptin Phosphate (Januvia) 25 mg DAILY ORAL 05/02/20 09:00 06/01/20 08:59 05/07/20 08:18 Sucralfate (Carafate) 1 gm BID ORAL 05/03/20 18:00 07/31/20 08:59 05/07/20 08:19 Assessment/Plan Assessment/Plan IMPRESSION: 1. Pulmonary edema. 2. ESRD, on dialysis. 3. Hypertension. 4. Multiple falls. DISCUSSION: Currently, patient is saturating well on room air. Continue HD per nephrology. I will follow carefully. Andriy Jaquez Omar Syed MD May 07, 2020 11:04
[2020-05-07] MEDS ORDERED: cefTRIAXone 1 GM in D5W 55 ML IVPB SCH (12:30)
--- NOTE | 2020-05-07 12:34 | NUR ---
DISCHARGE PLANNING/TRANSFER PROJECT DEVELOPMENT DIRECTOR DISCUSSED PLAN OF CARE WITH DR RATLIFF AND DR OJEDA PATIENT NEEDS HIGHER LEVEL OF CARE FOR CARDIAC CATHETERIZATION CLINIC[facility] T: [phone] F; [phone] Addendum: 05/07/20 at 1336 by ALBERTO FELIPE LVN LVN [facility] SUP REQUESTING A CURRENT TROPONIN INFORMED DR RATLIFF AND DR OJEDA STAT TROPONIN ORDERED
--- NOTE | 2020-05-07 13:22 | Nephrology Progress Note ---
Assessment/Plan Problem List: (1) Hyperkalemia (2) Anemia in chronic kidney disease (3) ESRD (end stage renal disease) on dialysis (4) CVA (cerebrovascular accident) Assessment: By history (5) Coronary artery disease Assessment: Rising troponin I Assessment Contusion of hip, right End-stage renal disease, on hemodialysis Tuesday. Missed her last dialysis session. Presented with hyperkalemia History of anemia of chronic kidney disease History of hydronephrosis History of CVA Plan May 07: Patient was dialyzed yesterday. Due for dialysis tomorrow. Labs reviewed. Medication reviewed. Continue per consultants. May 06: Patient due for dialysis today. Labs reviewed. Hemoglobin up to 8.9. Continue as is. Continue per cardiology recommendation. May 05: Patient dialyzed yesterday. Due for dialysis tomorrow. Labs reviewed. Medication list reviewed. Hemoglobin 7.8. Will aim to transfuse 1 unit of packed RBCs. May 04: Patient seen during dialysis. Tolerating well. Labs reviewed. Medication list reviewed. Will discuss with manager of supply chain regarding initiation of Plavix and Eliquis. Troponin I lower today. Continue dialysis as needed. May 03: Labs and medication list reviewed. Blood pressure hovering around 90 systolic. Will cut down on Lopressor dose. Increased PhosLo to 2 tablets 3 times daily. Hemodialysis tomorrow. BP support with albumin. Continue per cardiology advice. 1 dose of Plavix given. Questionable need for heparin drip. May 02: Dialysis today as soon as possible for hyperkalemia, Adjust blood pressure medication Epogen for anemia Blood sugar control Per orders Subjective ROS Limited/Unobtainable: No Constitutional: Reports: malaise Objective Objective Last 24 Hour Vital Signs Date Time Temp Pulse Resp B/P (MAP) Pulse Ox O2 Delivery O2 Flow Rate FiO2 05/07/20 11:35 98.6 77 20 103/67 (79) 96 05/07/20 08:45 Room Air 05/07/20 08:19 61 102/91 05/07/20 08:00 97.9 61 19 102/91 (95) 97 05/07/20 04:00 96 05/07/20 04:00 98.8 96 19 99/52 (68) 05/07/20 00:00 97.7 69 19 97/49 (65) 05/07/20 00:00 69 11/17/20 22:00 100.1 05/06/20 21:00 71 103/47 05/06/20 21:00 Room Air 05/06/20 20:00 72 05/06/20 20:00 99.9 70 20 106/49 (68) 05/06/20 16:00 69 05/06/20 16:00 98.1 67 20 102/71 (81) Intake and Output 05/06/20 05/07/20 18:59 06:59 Intake Total 80 ml 290 ml Output Total 1000 ml 1200 ml Balance -920 ml -910 ml Intake Oral 80 ml 290 ml Output Urine Total 1200 ml Hemodialysis UF 1000 ml # Voids 3 No labs drawn today Height (Feet): 5 Height (Inches): 2.00 Weight (Pounds): 166 General Appearance: no apparent distress, lethargic Cardiovascular: normal rate Respiratory/Chest: decreased breath sounds Abdomen: distended Supa Gomes MD May 07, 2020 13:22
--- NOTE | 2020-05-07 13:47 | NUR ---
NURSE NOTES: called dr kee's office andf spoke with Brittni to verify date of hemodialysis. awaiting for a callback. will cont to monitor. Addendum: 05/07/20 at 1350 by NATY HERNANDEZ LVN called back and verified for tomorrow's HD.
--- NOTE | 2020-05-07 13:50 | NUR ---
NURSE NOTES: CALLED [facility] TO SCHED PATIENT FOR HD TOMORROW, SPOKE WITH MARIANNE. ASHLEY IS MADE AWARE. WILL CONT TO MONITOR.
--- NOTE | 2020-05-07 14:07 | General Progress Note ---
Subjective Allergies: Coded Allergies: No Known Allergies (Unverified , 05/24/13) Objective Last 24 Hour Vital Signs Date Time Temp Pulse Resp B/P (MAP) Pulse Ox O2 Delivery O2 Flow Rate FiO2 05/07/20 12:00 72 05/07/20 11:35 98.6 77 20 103/67 (79) 96 05/07/20 08:45 Room Air 05/07/20 08:19 61 102/91 05/07/20 08:00 97.9 61 19 102/91 (95) 97 05/07/20 08:00 107 05/07/20 04:00 96 05/07/20 04:00 98.8 96 19 99/52 (68) 05/07/20 00:00 97.7 69 19 97/49 (65) 05/07/20 00:00 69 05/06/20 22:00 100.1 05/06/20 21:00 71 103/47 05/06/20 21:00 Room Air 05/06/20 20:00 72 05/06/20 20:00 99.9 70 20 106/49 (68) 05/06/20 16:00 69 05/06/20 16:00 98.1 67 20 102/71 (81) Intake and Output 05/06/20 05/07/20 19:00 07:00 Intake Total 80 ml 290 ml Output Total 1000 ml 1200 ml Balance -920 ml -910 ml Intake Oral 80 ml 290 ml Output Urine Total 1200 ml Hemodialysis UF 1000 ml # Voids 3 Height (Feet): 5 Height (Inches): 2.00 Weight (Pounds): 166 Assessment/Plan Assessment/Plan: S: I am ok O: appears weak, frail, imbalance Exam: Gastrointestinal Problems: No, Dialysis: Yes - av graft left arm-(T-TH-S)LAST DIALYSIS - Neurological Problems: Yes, Cerebrovascular Accident: Yes - 2011- AT/NC, chest: clear, Hreat: S1S2 RR, Abd: soft, MS: No gross lateralized motor deficit, atrophied muscle, wide gate balance , Neuro: AOX2, declined memory, Meds and labs: Reviewed and reconciled, including Eliquis and ASA Medical Decision Making Diagnostic Impression: Primary Impression: Hyperkalemia with possible missed HD- Symptomatic NSTEMI PAF ESRD (end stage renal disease) on dialysis Anemia D63.1 - Anemia in chronic kidney disease; Z99.2 - Dependence on renal dialysis DM Hyperlipidemia Imbalance- dependent for ADLS- multiple falls Fever Will followup with serial troponin level Notes from Cardiology reviewed , once clear from cardiology viewpoint will transfer to [facility] for LVCC Discussion : Fever, with no definite source of infection Obtain blood culture, CXR Hold on initiation of abx ID- Dr Garcia is consulted Given the fever and increased , will continue with current abx. Cristian White MD May 07, 2020 14:07
--- NOTE | 2020-05-07 15:29 | NUR ---
NURSE HAND-OFF REPORT: Important Events on Shift:[safety measures; bathe and kept clean and comfortable; called JENNI and Rogerio made aware; trop level] Patient Status: [stable] Diet: [renal] Pending Orders: [labs] Pending Results/Labs:[in am] Pending MD notification:[] Latest Vital Signs: Temperature 98.6 , Pulse 72 , B/P 103 /67 , Respiratory Rate 20 , O2 SAT 96 , Room Air, O2 Flow Rate . Vital Sign Comment: [] EKG Rhythm: Sinus Rhythm Rhythm change?: N Notified?: Y -Dr. Deanne ARMSTRONG Response: Stat Echo Latest Taylor Fall Score: 60 Fall Risk: High Risk Safety Measures: Call light Within Reach, Bed Alarm Zone 2, Side Rails Side Rails x3, Bed position Low and Locked. Fall Precautions: Yellow Socks Door Sign Patient Fall Education Report given to [Param].
--- NOTE | 2020-05-07 15:30 | Consultation ---
DATE OF CONSULTATION: 05/07/2020 INFECTIOUS DISEASE CONSULTATION CONSULTING PHYSICIAN: Franklin Garcia MD PRIMARY ATTENDING: Cristian White MD REASON FOR CONSULTATION: Fever, sepsis. HISTORY OF PRESENT ILLNESS: This is a 64-year-old female admitted on 05/01/2020 because of repeated falls and weakness. Patient was found to have atrial fibrillation with rapid ventricular rate and later developed non-ST elevation myocardial infarction. Started having fever from 05/04/2020 that increased to 102.2 on 05/05/2020. Has also lower degree of fever yesterday. PAST MEDICAL HISTORY: Diabetes mellitus type 2, hypertension, end-stage renal disease, CVA in 2020, seizure disorder, anemia, hyperlipidemia. PAST SURGICAL HISTORY: Hysterectomy, AV graft in the left arm. ALLERGIES: No known drug allergies. MEDICATIONS: Getting Canalou, Tylenol, apixaban, metoprolol, sucralfate, Epogen, hydralazine, Januvia, Keppra, Colace, aspirin, Bisacodyl. SOCIAL HISTORY: Single. Denies alcohol, drug abuse, or smoking. Lives with son. REVIEW OF SYSTEMS: Has decreased vision. No coughing. No shortness of breath. No chest pain at the present time. No nausea. No vomiting. Does not make too much urine. PHYSICAL EXAMINATION: VITAL SIGNS: Temperature 98.6, pulse 77, blood pressure 103/67. GENERAL APPEARANCE: Seems to be overweight. HEAD AND NECK: Mcbride conjunctivae. HEART: Normal rate. LUNGS: Clear. ABDOMEN: Soft and nontender. EXTREMITIES: No edema. NEUROLOGIC: She is awake, alert, responsive. LABORATORY AND DIAGNOSTIC DATA: WBC today is 12.2, hemoglobin 8.9, hematocrit 27.6, platelets 112. Sodium 136, potassium 4, chloride 98, bicarbonate 24, BUN 60, creatinine 10.5, glucose is 122. Peak level of troponin was 5.98 on 05/03/2020. Blood culture is pending. COVID-19 test negative. VRE and MRSA tests were negative. IMPRESSION: Sepsis, systemic inflammatory response syndrome with fever and leukocytosis. Has [id number] OK. Has anemia, thrombocytopenia, end-stage renal disease, on hemodialysis, diabetes mellitus type 2, hypertension, atrial fibrillation, frequent falls. Has some right knee effusion. Has thickening of the bladder wall on CT scan of the hip, likely secondary to chronic cystitis. RECOMMENDATION: We will follow up the culture. We will start empirically on ceftriaxone and vancomycin. If the culture remains negative, we will try to stop antibiotics soon. Likely, we will transfer the patient to [facility] for cardiac catheterization. At the end of my exam, I thank Dr. White, for involving me in the care of this patient. Franklin Garcia M.D. DR: JANENE JOB#: [id number] CC:
--- NOTE | 2020-05-07 16:05 | NUR ---
TRANSFER PLAN IS TO TRANSFER PATIENT TO [facility] FOR CARDIAC CATH SPOKE WITH SHREDDING MACHINE OPERATOR(YARIEL) AT [facility], SHE SAID ONCE SHE HAS A BED SHE WILL CALL THE NURSES STATION DIRECTLY. NURSING TO ARRANGE TRANSPORTATION WITH [facility] ~ [facility] SHREDDING MACHINE OPERATOR T: [phone]
--- NOTE | 2020-05-07 16:55 | Diagnostic Imaging Report ---
Indication: Chest pain Technique: XRAY Chest 1v Comparison: 05/01/2020 Findings: Stable cardiomegaly. There is interstitial opacification/edema and patchy opacities in the right lung. No significant pleural effusion. No pneumothorax. No acute osseous abnormality. Impression: Cardiomegaly. Interstitial opacification/edema and patchy right-sided airspace opacities. Findings may relate to CHF with asymmetric alveolar edema in the right lung. Possibility of pneumonia however is not excluded. Clinical correlation and follow-up recommended.
--- NOTE | 2020-05-07 19:28 | NUR ---
NURSE NOTES: Pt is cleared for transfer per Dr. Alicea.
--- NOTE | 2020-05-07 19:32 | NUR ---
NURSE HAND-OFF REPORT: Important Events on Shift: [facility] Patient Status: no acute distress Diet: renal Pending Orders: HD tomorrow Pending Results/Labs: Pending MD notification: Latest Vital Signs: Temperature 98.6 , Pulse 78 , B/P 104 /71 , Respiratory Rate 19 , O2 SAT 98 , Room Air, O2 Flow Rate . Vital Sign Comment: EKG Rhythm: Sinus Rhythm Rhythm change?: N MD Notified?: Norma Alicea MD Response: Stat Echo Latest Taylor Fall Score: 60 Fall Risk: High Risk Safety Measures: Call light Within Reach, Bed Alarm Zone 2, Side Rails Side Rails x3, Bed position Low and Locked. Fall Precautions: Yellow Socks Door Sign Patient Fall Education Report given to SEEMA Bernard.
--- NOTE | 2020-05-07 19:43 | NUR ---
NURSE NOTES: Per Dr. White, [facility]. Noted.
--- NOTE | 2020-05-07 20:19 | NUR ---
NURSE NOTES: Gave report to SEEMA Zuniga at [facility]. [facility].
--- NOTE | 2020-05-07 20:25 | NUR ---
NURSE NOTES: Contacted [facility] for transportation. Spoke to Pelon who said they are currently backed up and [facility] will be helping them transport pts.
[2020-05-07] MEDS: Epoetin Alfa-EPBX(ESRD on dialysis)10,000 unit/ml vial SUBQ SCH (21:06)
--- NOTE | 2020-05-07 22:55 | NUR ---
NURSE NOTES: Pt left via eder with [facility] through [facility] to [facility]; [facility] [address] [facility] [place]. Gave report to ambulance personnel, Joo. Belongings list checked and signed by RN and pt. Home medications and belongings left with pt. Pt in stable condition.
--- NOTE | 2020-05-07 23:09 | NUR ---
NURSE NOTES: Received pt and report from SEEMA Bragg. Observed pt resting in bed with both eyes closed; arousable to voice. Pt is A/Ox4. air sampling and monitoring is in placed; pt is NSR. IV site intact, asymptomatic, and patent. Bed is in the lowest position and locked. Call light and bedside table is within reach. No signs/symptoms of acute distress noted. Pt will be transferring to [facility] shortly for cardiac cath. Will continue plan of care until pt gets transfer. Addendum: 05/07/20 at 7393 by Rayna Ramirez Mai, RN Received pt at 1930.
--- NOTE | 2020-05-08 09:16 | Discharge Summary ---
Discharge Summary Discharge Summary _ DATE OF ADMISSION: 05/01/2020 DATE OF DISCHARGE: 05/07/2020 DISCHARGED BY: Dr. White REASON FOR ADMISSION: 64 years old female with past medical history of hypertension, diabetes mellitus, end-stage renal disease, on hemodialysis, seizure disorder, missed recent dialysis, presented with right hip and right knee pain after multiply falls as well as generalized weakness. Patient denied hitting her head . She denied loss of consciousness. X-ray of the right hip and right knee as well as the CT scan of the right hip were all negative for evidence of fracture. Chest x-ray revealed cardiomegaly and mild bilateral interstitial congestion. Laboratory work-up revealed anemia with hemoglobin 8.9, hematocrit 27.3, no leukocytosis. Rapid COVID-19 was negative . Sodium 129, potassium 6.0. BUN 122, creatinine 16.7. Calcium 7.1. In emergency department patient received analgesic and treated for hyperkalemia with calcium gluconate, insulin, D50 Patient subsequently admitted to telemetry floor for further management. CONSULTANTS: administrative office clerk Dr. Patel pulmonary Dr. Lovell ID specialist Dr. Franklin Garcia recruiting administrator Dr. Gomes [facility] COURSE: Patient admitted to telemetry floor. Dialysis was urgently arranged as per recruiting administrator with close monitoring of volumes and cardiorenal parameters. Epogen started . Blood pressure and blood sugar were kept in control. The next day troponin was elevated 0.286. Mcat Instructor followed. Serial troponin were trending up with peak of 5.981. EKG revealed nonspecific ST-T changes.. Echocardiogram demonstrated preserved ejection fraction of 60 to 65%. Patient was on antiplatelet therapy with aspirin, beta-olimpia and statin. Off Plavix. Transfer was arranged to higher level of care for cardiac catheterization to [facility] Patient demonstrated paroxysmal atrial fibrillation , converted to sinus rhythm. Patient was on beta-olimpia as well as anticoagulation with Eliquis. Blood pressure was managed with beta-olimpia. Supplemental oxygen was on board as needed. Pulse oximetry remained stable on room air. Seizure precaution maintained. Keppra continued. No evidence of seizure activity while in the hospital. Patient developed fever and leukocytosis on 05/06. Patient pancultured and started on broad-spectrum antibiotics as per ID specialist recommendation. At the time of this dictation cultures still pending. Transfer was arranged to [facility] for cardiac catheterization. Patient was stable for transfer via [facility] ambulance. FINAL DIAGNOSES: NSTEMI Atrial fibrillation with rapid ventricular response Paroxysmal atrial fibrillation Hypertension Hyperkalemia Possible sepsis End-stage renal disease on hemodialysis, missed last dialysis Pulmonary edema Anemia of chronic kidney disease Hyperlipidemia Multiply falls Right hip contusion History of CVA Seizure disorder DISCHARGE MEDICATIONS: See Medication Reconciliation list. DISCHARGE INSTRUCTIONS: Patient was transferred to [facility] for cardiac catheterization. I have been assigned to dictate discharge summary for this account. I was not involved in the patient's management. Lauren Roberts NP May 08, 2020 09:16
== END 2020-05-07 22:55 | disposition critical access hospital, planned readmission (94) | DRG 640 ==
LOC: EDBD 18:45 → EMR 18:57 → 2E 19:50 → EDBEDREQ 21:06
PROC: 30233N1 Transfusion of Nonautologous Red Blood Cells into Peripheral Vein, Percutaneous Approach (ICD-10-PCS; principal; 2020-05-05)
PROC: 5A1D70Z Performance of Urinary Filtration, Intermittent, Less than 6 Hours Per Day (ICD-10-PCS; 2020-05-07)
DX: E87.5 Hyperkalemia (principal); N18.6 End stage renal disease; I21.4 Non-ST elevation (NSTEMI) myocardial infarction; A41.9 Sepsis, unspecified organism; I12.0 Hypertensive chronic kidney disease with stage 5 chronic kidney disease or end stage renal disease; J81.1 Chronic pulmonary edema; I48.0 Paroxysmal atrial fibrillation; S70.01XA Contusion of right hip, initial encounter; E11.22 Type 2 diabetes mellitus with diabetic chronic kidney disease; Z99.2 Dependence on renal dialysis; Z91.15 Patient's noncompliance with renal dialysis; D63.1 Anemia in chronic kidney disease; R26.81 Unsteadiness on feet; Z86.73 Personal history of transient ischemic attack (TIA), and cerebral infarction without residual deficits; R29.6 Repeated falls; W19.XXXA Unspecified fall, initial encounter; D69.6 Thrombocytopenia, unspecified; I25.10 Atherosclerotic heart disease of native coronary artery without angina pectoris; G40.909 Epilepsy, unspecified, not intractable, without status epilepticus; E78.5 Hyperlipidemia, unspecified
CPT/HCPCS: 36415; 71045; 80053; 80061; 82607; 82728; 82746; 82977; 83036; 83540; 83550; 83735; 83880; 84100; 84443; 84484; 84550; 85007; 85025; 85610; 85730; 86140; 86706; 86850; 86900; 86901; 86920; 87040; 87081; 93005; 93306; 96374; 96375; 99291; J2405; U0002